=== PATIENT | female | born 1950 | race African-American/Black ===

== ENCOUNTER 2017-10-23 07:44 | Outpatient (CLI) | payer MEDICARE ==
--- NOTE | 2017-10-23 10:06 | MRI ---
BRAIN MRI WITHOUT CONTRAST: INDICATION: Memory changes, confusion. FINDINGS: There is age-appropriate size of the ventricular system. Minimal chronic microvascular ischemic dise ase is present. There is no evidence of an acute infarction. Skull base flow voids are maintained. There is extensive paranasal sinus opacification. IMPRESSION: 1. No acute intracranial abnormality. 2. Extensive paranasal sinus opacification. Correlate clinically. POS: [facility]
--- NOTE | 2017-10-27 10:46 | EEG ---
Referring Physician: DR. NATHAN MCCANN EEG # [id number] PROCEDURE: Outpatient electroencephalogram NAME OF PATIENT: Miriam Soliz DATE EEG DONE: 10/23/2017. INDICATION: Memory changes, confusion. EEG CLASSIFICATION: Normal awake and drowsy. REPORT: This is a 22-channel digital EEG recording utilizing 10-20 international electrode placement system on a patient who presents with memory changes and confusion. During wakefulness, the background activity consists predominantly of low to moderate amplitude dominant alpha rhythm of 8-9 Hz. It is symmetric and reactive in nature. This activity is penetrated occasionally by low amplitude fast beta activity and with myogenic activity representing frontalis and temporalis muscles bilaterally. DROWSINESS AND SLEEP: Subject able to attain periods of drowsiness with diffuse theta activity. There is no clear sleep recorded during this EEG. There is no consistent asymmetry or paroxysmal activity noted. INDUCTION: HYPERVENTILATION: With fair effort results in no significant change in the background activity. PHOTIC STIMULATION: No photic drive seen. EK per minute. IMPRESSION: This EEG is considered normal awake and drowsy EEG. There is no clear epileptiform activity or focal abnormality noted. Clinical correlation recommended. Painter Airbrush: AUREA Deaf/Hard Of Hearing Specialist: EEG.ROSIE HAWLEY
== END 2017-10-23 07:45 | disposition home or self-care (01) ==
LOC: MRI 07:44
PROVIDERS: ATTEND Student in an Organized Health Care Education/Training Program
DX: R41.3 Other amnesia (principal); R41.0 Disorientation, unspecified
CPT/HCPCS: 70551; 95816

== ENCOUNTER 2018-03-11 10:03 | Inpatient (IN) | payer MEDICARE ==
[2018-03-11] MEDS ORDERED: cefTRIAXone\\ROCEPHIN 2 GM VIAL ONE (10:33)
[2018-03-11 10:45] LABS: #Lymphocytes 0.6 thou/uL (1.20-3.40); #Monocytes 0.7 thou/uL (0.11-0.59); #Neutrophils 9.2 thou/uL (1.40-6.50); %Basophils 0.2 % (0.0-1.0); %Eosinophils 0.2 % (0.0-10.0); %Lymphocytes 5.9 % (21.0-51.0); %Neutrophils 86.8 % (42.0-75.0); Hemoglobin 13.2 g/dL (12.0-16.0); Mean Corpuscular HGB CONC 33.8 g/dL (32.0-36.0); Mean Corpuscular Hemoglobin 29.7 pg (27.0-31.0); Mean Corpuscular Volume 87.7 fl (81.0-99.0); Mean Platelet Volume 8.4 fL (7.4-10.4); Platelet Count 131 thou/uL (130-400); RBC Distribution Width 12.1 % (11.5-14.5); Red Blood Cell (RBC) Count 4.44 mill/uL (4.20-5.40); White Blood Cell (WBC) Count 10.6 thou/uL (4.8-10.8)
--- NOTE | 2018-03-11 10:58 | RAD ---
RIGHT FOOT THREE VIEWS: History: 68-year-old female with history of right foot wound as well as swelling of right foot without fever. FINDINGS: There is soft tissue swelling of the right fourth toe, particularly laterally, resulting in some sepa ration between the proximal phalanges of the fourth and fifth toes. Mild degenerative changes of the foot. No evidence for acute fracture. Evidence for a type II secondary navicular ossification center. IMPRESSION: Soft tissue swelling of the fourth toe, particularly laterally. No fracture, dislocation, or other si gnificant acute osseous abnormality. POS: [facility]
[2018-03-11 11:06] LABS: ALT (SGPT) 9 U/L (8-55); AST (SGOT) 11 U/L (5-34); Albumin 4.3 g/dL (3.4-4.8); Alkaline Phosphatase 92 U/L (40-150); Anion Gap 12 mmol/L (10-20); BUN (Urea Nitrogen) 11 mg/dL (9.8-20.1); Bilirubin, Total 2.4 mg/dL (0.2-1.2); Calc. Creatinine Clearance 0 mL/min (70-130); Calcium 11.1 mg/dL (7.8-10.44); Carbon Dioxide 25 mmol/L (23-31); Chloride 97 mmol/L (98-107); Estimated GFR-MDRD 90; Globulin 3.5 g/dL (2.4-3.5); Glucose 320 mg/dL (80-115); Potassium 4.4 mmol/L (3.5-5.1); Protein, Total 7.8 g/dL (6.0-8.3); Sodium 130 mmol/L (136-145)
[2018-03-11] MEDS ORDERED: Cefepime 2 GM VIAL ONE (11:16)
--- NOTE | 2018-03-11 13:27 | HP ---
PRIMARY CARE PHYSICIAN: Dr. Acosta Heart. REASON FOR ADMISSION: Right foot cellulitis, failed outpatient therapy, immunocompromised patient. HISTORY OF PRESENT ILLNESS: A 68-year-old -[place] female who has history of diabetes type 2 as well as history of diabetic nephropathy required renal transplant, on immunosuppressive therapy, who was having right foot pain for about 3-4 days. Initially, patient was hurting in her fourth toe on the right side. It was becoming more erythematous and tender, which was bothered during walking. Yesterday they decided to go to see Dr. Heart's office and Dr. Gonzalez gave her Rocephin shot and ad vised to come for evaluation today. Yesterday, patient was having a lot of swelling, erythema and wa rmth over right foot and patient was advised to keep right foot elevated. This morning, swelling sli ghtly reduced but patient's family member noticed yellowish discoloration on top of dorsum of the fou rth toe on the right side. When Dr. Gonzalez saw this, at that time, patient was advised to go to the emergency room for evaluation. The patient was not having any fever. She did not have any UTI sympt oms. She denies any nausea, vomiting, diarrhea. She denies any trauma. The patient is on immunosup pressive therapy for renal transplant. Normally, patient is followed by Dr. Heart, but yesterday sh e saw Dr. Gonzalez because Dr. Heart was off. Currently, patient does have throbbing pain in her right foot, especially fourth toe and her entire r ight foot is swollen, erythematous. She is not feeling any better and that is why we are admitting t his patient in hospital, particularly she is immunocompromised patient. REVIEW OF SYSTEMS: The following complete review of systems was negative, unless otherwise mentioned in the HPI or below: Constitutional: Weight loss or gain, ability to conduct usual activities. Skin: Rash, itching. Eyes: Double vision, pain. ENT/Mouth: Nose bleeding, neck stiffness, pain, tenderness. Cardiovascular: Palpitations, dyspnea on exertion, orthopnea. Respiratory: Shortness of breath, wheezing, cough, hemoptysis, fever or night sweats. Gastrointestinal: Poor appetite, abdominal pain, heartburn, nausea, vomiting, constipation, or diarr hea. Genitourinary: Urgency, frequency, dysuria, nocturia. Musculoskeletal: Pain, swelling. Neurologic/Psychiatric: Anxiety, depression. Allergy/Immunologic: Skin rash, bleeding tendency. Please see my HPI for pertinent positive and negative. All other review of system reviewed and negat enrique except as mentioned in the HPI. PAST MEDICAL HISTORY: Diabetes type 2, hypertension, hypothyroidism, history of renal transplant, po lycystic kidney disease, secondary hyperparathyroidism and gastroesophageal reflux disease. PAST SURGICAL HISTORY: Right renal transplant in 2012 at [facility] in [place], histo ry of dialysis shunt to left upper extremity in 2011, hysterectomy in 1999. PAST PSYCHIATRIC HISTORY: Reviewed and negative. SOCIAL HISTORY: Patient lives at home by herself. No history of tobacco, alcohol or illicit drug ab use. FAMILY HISTORY: No strong family history of premature coronary artery disease, stroke or cancer. ALLERGIES: No known drug allergy. CURRENT HOME MEDICATIONS: Prograf 5 capsule twice daily, CellCept 500 mg twice daily, prednisone 5 m g daily, Pepcid 20 mg daily, Toprol 25 mg twice daily, Sensipar 90 mg p.o. daily, aspirin 81 mg p.o. daily, Glucotrol-XL 10 mg daily, magnesium oxide 400 mg twice daily, levothyroxine 125 mcg p.o. daily . EMERGENCY ROOM COURSE: Patient has received cefepime 2 gram and vancomycin 1 gram. PHYSICAL EXAMINATION: VITAL SIGNS: On arrival, blood pressure 131/77, pulse 92, respiratory rate 18, temperature 98.8, sat uration 96% on room air, weight 57.6 kilograms. GENERAL: Patient is currently alert, awake, no obvious acute distress. HEAD: Normocephalic, atraumatic. EYES: Pupils round, reactive to light. Extraocular muscle intact. ENT: Oropharynx within normal limits. Moist mucous membranes. No oral lesion, no pharyngeal erythe ma, no exudate. NECK: Supple, no JVD, no thyromegaly, no carotid bruit, no jugular venous distention. LUNGS: Clear to auscultation without any rhonchi or rales. CARDIAC: S1 and S2 regular. No murmur elicited, no gallop, no rub. ABDOMEN: Soft, bowel sounds present, nontender, nondistended. No organomegaly, no mass, no suprapub ic tenderness. BACK: Examination unremarkable, no CVA tenderness. EXTREMITIES: Upper extremity within normal limits. Lower extremities; right foot is erythematous, s wollen. The patient does have yellowish discoloration on the base of the fourth toe as well as on do rsal aspect of the fourth toe. Entire foot is tender and swollen on the right side. NEUROLOGIC: Nonfocal examination. Motor 5/5. Sensation intact bilaterally. Reflexes symmetrical. Plantar bilateral flexor. No cerebellar sign. SKIN: No skin rash. HEMATOLOGICAL SYSTEM: No lymphadenopathy. PSYCHIATRIC: Normal affect. IMAGING DATA AND SIGNIFICANT LABORATORY DATA: Foot x-ray done in the emergency room showing soft tis anthony swelling of the fourth toe. No fracture or bony involvement. CBC: WBC 10.6, hemoglobin 13.2, a nd platelet 131. BMP: Sodium 130, potassium 4.4, chloride 97, carbon dioxide 25, anion gap 12, BUN 11, creatinine 0.77. Glucose 320, calcium 11.1. LFT: Bilirubin 2.4, AST 11, ALT 9, alkaline phosph atase 92, albumin 4.3, and lactic acid 1.3. ASSESSMENT AND PLAN/IMPRESSION: 1. Right foot cellulitis, especially right fourth toe cellulitis with abscess, failure of outpatient therapy. Patient is immunocompromised and she has rapidly worsening of erythema, swelling, and tend erness over right foot. This patient may need surgical procedure with minor I&D over right fourth to e to remove pus which is obvious clinically on inspection. Patient will be treated with Rocephin 2 g kesha IV daily, vancomycin pharmacy adjusted dose, Florastor 250 mg p.o. daily. We will control her pa in with morphine 2 mg every 4 hourly p.r.n. basis. We will consult director of reservations General Surgery for evalu ation. The patient is advised to keep right foot elevated. 2. History of polycystic kidney disease and right renal transplantation on immunosuppressive therapy . We will continue Prograf 5 mg twice daily, CellCept 500 mg twice daily, prednisone 5 mg p.o. daily . 3. Diabetes type 2, not well controlled. We will continue Glucotrol-XL 10 mg daily, insulin as per sliding scale per protocol. Diabetic diet will be given. 4. Hypothyroidism. We will continue Synthroid 125 mcg p.o. daily. 5. Hypertension. We will continue metoprolol tartrate 25 mg p.o. twice daily. 6. Secondary hyperparathyroidism of renal origin. We will continue Sensipar 90 mg p.o. daily. 7. Hyponatremia likely due to pseudohyponatremia from hyperglycemia. We will repeat BMP tomorrow. 8. Mild hypercalcemia, likely due to possible underlying dehydration. We will give her gentle IV fl uid and we will repeat BMP tomorrow. 9. Deep venous thrombosis prophylaxis, heparin 5000 units subcu twice daily. 10. GI prophylaxis, Pepcid 20 mg p.o. daily. CODE STATUS: Patient is FULL CODE. Patient's daughter is surrogate decision maker. Disposition plan based on clinical course. We are expecting patient's stay in hospital more than 2 m idnights. Plan of care discussed with the patient's daughter and patient's bedside in the emergency room in detail.
[2018-03-11 14:18] VITALS: BMI 32.9
[2018-03-11] MEDS ORDERED: Ondansetron HCl/PF 4 MG/2 ML Vial IVP PRN ×2 (14:25→14:26)
[2018-03-11] MEDS ORDERED: Chloraseptic Spray 180 ml Bottle PO PRN (14:26)
[2018-03-11] MEDS ORDERED: Senokot 8.6 MG TAB PO PRN (14:26)
[2018-03-11] MEDS ORDERED: Acetaminophen 325 MG TAB PO PRN ×2 (14:26)
[2018-03-11] MEDS ORDERED: Artificial Tears 18 DROP/0.9 ML EA EYE PRN (14:26)
[2018-03-11] MEDS ORDERED: HumaLOG 300 UNITS/3 ML VIAL SC PRN (14:26)
[2018-03-11] MEDS ORDERED: Milk Of Magnesia 30 ML UDCUP PO PRN (14:26)
[2018-03-11] MEDS ORDERED: Diabetic Tussin 200 MG/10 ML UDCUP PO PRN (14:26)
[2018-03-11] MEDS ORDERED: Dextrose 5% in Water 1,000 ML IV PRN (14:26)
[2018-03-11] MEDS ORDERED: Ondansetron ODT 4 MG TAB PO PRN ×2 (14:26)
[2018-03-11] MEDS ORDERED: Dextrose 50% Abboject 50 ML SYRINGE SLOW IVP PRN (14:26)
[2018-03-11] MEDS ORDERED: Loperamide HCl 2 MG CAP PO PRN (14:26)
[2018-03-11] MEDS ORDERED: Mag-Al 1200 mg/1200 mg/30 ML UDCUP PO PRN (14:26)
[2018-03-11] MEDS ORDERED: hydrALAZINE 20 MG/ML VIAL SLOW IVP PRN (14:26)
[2018-03-11] MEDS ORDERED: Zolpidem Tartrate 5 MG TAB PO PRN (14:26)
[2018-03-11] MEDS ORDERED: Loratadine 10 MG TAB PO PRN (14:26)
[2018-03-11] MEDS ORDERED: Sodium Chloride 0.65% Nasal 44 ML BOT EA NARE PRN (14:26)
[2018-03-11] MEDS ORDERED: Eucerin (Mineral Oil/Petrolatum,White) 30 gm Jar TOP PRN (14:26)
[2018-03-11] MEDS ORDERED: Morphine 4 MG/ML VIAL IV PRN (14:44)
[2018-03-11] MEDS: cefTRIAXone\\ROCEPHIN 2 GM in Sodium Chloride 0.9% 100 ML IVPB SCH (15:46)
[2018-03-11] MEDS: Sodium Chloride 0.9% 1,000 ML IV SCH (15:47)
[2018-03-11] MEDS: Vancomycin HCl 1.75 GM in Sodium Chloride 0.9% 500 ML IVPB SCH (16:41)
[2018-03-11 18:53] LABS: Bilirubin Negative (Negative); Blood, Urine Moderate (Negative); Clarity CLEAR (Clear); Glucose, Urine (Dipstick) >=1000 mg/dL (Negative); Leukocyte Negative (Negative); Nitrite Negative (Negative); Protein, Urine (Dipstick) 30 mg/dL (Neg-Trace); Specific Gravity, Urine 1.041 (1.002-1.036); Urobilinogen 0.2 mg/dL (0.2-1.0)
[2018-03-11 18:56] LABS: Bacteria/HPF None Seen HPF (None Seen); Hyaline Casts/LPF 0-3 HYALINE CAST LPF (0-3 Hyaline); Pathc Cast-AUWi Flag 0.43 (0-2.49); Squamous Epithelial 0-3 HPF (0-3)
[2018-03-11] MEDS: Metoprolol Tartrate 25 MG TAB PO SCH (20:20)
[2018-03-11] MEDS: Magnesium Oxide 400 MG TAB PO SCH (20:20)
[2018-03-11] MEDS: Mycophenolate 250 MG CAP PO SCH (20:20)
[2018-03-11] MEDS: Heparin 5,000 UNITS/ML VIAL SC SCH (20:20)
[2018-03-11] MEDS: Tacrolimus 1 MG CAP PO SCH (20:21)
--- NOTE | 2018-03-11 20:32 | HP ---
HISTORY OF PRESENT ILLNESS: Miriam Soliz is a 68-year-old black female with diabetic foot infection , right fourth toe. She denies knowledge of any injury. She has a renal transplant, kidney failure secondary to polycystic kidney disease. She is followed by Dr. Becerra, has an appointment to see him n ext month. She has a left upper arm dialysis fistula placed in [place]. Dr. Heart is her primary [facility] physician. The patient was seen in the hospital, admitted on 03/11/2018, and antibiotics initiat ed. She had an x-ray noting absence of any obvious bony involvement. She has been started on intrav enous antibiotics, ceftriaxone and vancomycin. She is insulin-dependent diabetic. She has a cousin that had an excellent match for renal transplant performed in 2012 after bilateral nephrectomies for polycystic kidney disease through a midline incision. Evaluation reveals that she has some blistering around the skin of the right fourth toe; and in the w eb space between the fourth and fifth toes, there are some excoriations, superficial skin denervation , but no obvious abscess, sinus, or wounds. She has palpable pedal pulses. Plan at this time would be to treat this with intravenous antibiotics, transition to oral antibiotics . I think local antibiotic treatment should suffice and hopefully, surgical intervention will not be necessary. She does not have any evidence of peripheral vascular disease. ALLERGIES: None. TOBACCO: None. ALCOHOL: Rare beer. MEDICATIONS: Tylenol, magnesium oxide, glipizide, Crestor, metoprolol, simvastatin, aspirin, levothy roxine, famotidine, prednisone, Prograf 5 mg b.i.d., CellCept 500 b.i.d. In the hospital, she is on ceftriaxone and vancomycin. PAST SURGICAL HISTORY: Midline incision for bilateral nephrectomies; previous hysterectomy; left arm AV fistula; upper arm cephalic vein fistula; renal transplant, cousin donated with an excellent [facility], 2012, fitter hand Dr. Becerra. PAST MEDICAL HISTORY: Diabetes mellitus; hypertension; polycystic kidney disease, status post bilate ral nephrectomies; renal transplant recipient. PHYSICAL EXAMINATION: VITAL SIGNS: 5 feet 4 inches, 191 pounds, 98.5, 93, 110/67. HEAD, EARS, EYES, NOSE, AND THROAT: Unremarkable. LUNGS: Clear to auscultation. CARDIAC: Regular rate and rhythm without murmur or gallop. ABDOMEN: Soft. Midline incision xiphoid to pubis. Well-healed incision. No obvious scar. No obvi ous hernia. EXTREMITIES: Palpable femoral, popliteal, dorsalis pedis pulses. Edema of the right fourth toe and overlying skin and distal foot. There is denudation of skin blistering on the dorsal aspect, but no sinus tracts. In the web space between the fourth and fifth toes, there is some excoriation of skin, but no violation of skin and no sinus tract. ASSESSMENT AND PLAN: Diabetic foot infection, right. Continue intravenous antibiotics. Plain x-ray s are negative. No evidence of peripheral arterial disease. No indication for surgical intervention at this time. I do not think MRI is necessary. We will continue intravenous antibiotics, transitio n to oral, and call me if I can be of further assistance. I can follow up her in my office if necess deb when she is discharged.
[2018-03-11] MEDS ORDERED: Prevnar 13-Val Conj/PF 0.5 ML SYRINGE IM ONE (21:00)
[2018-03-12] MEDS: Sodium Chloride 0.9% 1,000 ML IV SCH ×2 (02:41→05:05)
[2018-03-12] MEDS: HYDROcodone/Acetaminophen 5/325 mg Tablet PO PRN ×2 (05:06→14:23)
[2018-03-12] MEDS: Levothyroxine Sodium 125 MCG TAB PO SCH (05:07)
[2018-03-12] MEDS: HumaLOG 300 UNITS/3 ML VIAL SC PRN ×3 (05:11→17:26)
[2018-03-12] MEDS ORDERED: Levothyroxine 150 MCG TAB PO SCH (06:00)
[2018-03-12 06:14] LABS: ALT (SGPT) 8 U/L (8-55); AST (SGOT) 11 U/L (5-34); Albumin 3.5 g/dL (3.4-4.8); Alkaline Phosphatase 83 U/L (40-150); Anion Gap 9 mmol/L (10-20); BUN (Urea Nitrogen) 13 mg/dL (9.8-20.1); Bilirubin, Total 0.9 mg/dL (0.2-1.2); CRP (Inflammatory) 13.59 mg/dL (= or < 0.5); Calc. Creatinine Clearance 99 mL/min (70-130); Calcium 10.9 mg/dL (7.8-10.44); Carbon Dioxide 26 mmol/L (23-31); Chloride 103 mmol/L (98-107); Estimated GFR-MDRD Greater than 90; Globulin 2.9 g/dL (2.4-3.5); Glucose 285 mg/dL (80-115); Magnesium 1.5 mg/dL (1.6-2.6); Potassium 4.2 mmol/L (3.5-5.1); Protein, Total 6.4 g/dL (6.0-8.3); Sodium 134 mmol/L (136-145)
[2018-03-12 06:56] LABS: #Lymphocytes 0.7 thou/uL (1.20-3.40); #Monocytes 0.6 thou/uL (0.11-0.59); #Neutrophils 4.1 thou/uL (1.40-6.50); %Basophils 0.1 % (0.0-1.0); %Eosinophils 0.5 % (0.0-10.0); %Lymphocytes 13.5 % (21.0-51.0); %Monocytes 10.2 % (0.0-10.0); %Neutrophils 75.7 % (42.0-75.0); Mean Corpuscular HGB CONC 32.9 g/dL (32.0-36.0); Mean Corpuscular Hemoglobin 29.2 pg (27.0-31.0); Mean Corpuscular Volume 88.6 fl (81.0-99.0); Mean Platelet Volume 8.9 fL (7.4-10.4); PLT Morphology Comment Appears Decreased; Platelet Count 113 thou/uL (130-400); RBC Distribution Width 11.9 % (11.5-14.5); RBC Morphology Normal; White Blood Cell (WBC) Count 5.4 thou/uL (4.8-10.8)
[2018-03-12] MEDS: Mycophenolate 250 MG CAP PO SCH ×2 (08:33→20:14)
[2018-03-12] MEDS: Cinacalcet HCl 30 MG TAB PO SCH (08:33)
[2018-03-12] MEDS: Famotidine 20 MG TAB PO SCH (08:33)
[2018-03-12] MEDS: Metoprolol Tartrate 25 MG TAB PO SCH ×2 (08:34→20:14)
[2018-03-12] MEDS: predniSONE 5 MG TAB PO SCH (08:34)
[2018-03-12] MEDS: Magnesium Oxide 400 MG TAB PO SCH ×2 (08:34→20:14)
[2018-03-12] MEDS: Heparin 5,000 UNITS/ML VIAL SC SCH ×2 (08:34→20:14)
[2018-03-12] MEDS: Saccharomyces boulardii 250 MG CAP PO SCH (08:34)
[2018-03-12] MEDS: Tacrolimus 1 MG CAP PO SCH ×2 (08:34→20:15)
--- NOTE | 2018-03-12 10:27 | PDOC.PN ---
- Subjective Encounter Start Date: 03/12/18 Encounter Start Time: 09:10 -: old records requested/rev Patient seen and examined for diabetic foot infection. No new complaints. No overnight events pt feels better, less swelling on right foot, she had minor scraping and pus drained bedside by dr garrido - Objective Resuscitation Status: Resuscitation Status FULL:Full Resuscitation MAR Reviewed: Yes Vital Signs & Weight: Vital Signs (12 hours) Temp Pulse Resp BP Pulse Ox 03/12/18 08:19 97.6 F 72 16 116/70 99 03/12/18 08:00 97.6 F 72 16 99 03/12/18 04:00 98.7 F 92 16 152/84 H 97 03/12/18 00:00 98.2 F 88 18 132/62 98 I&O: 03/11/18 03/12/18 03/13/18 06:59 06:59 06:59 Intake Total 240 Balance 240 Result Diagrams: 03/12/18 04:32 03/12/18 04:32 Additional Labs: Accuchecks 03/12/18 03/11/18 04:47 20:39 POC Glucose 261 H 238 H Phys Exam - Physical Examination Constitutional: NAD HEENT: PERRLA, moist MMs, sclera anicteric Neck: no JVD, supple Respiratory: no wheezing, no rales, no rhonchi Cardiovascular: RRR, no significant murmur, no rub Gastrointestinal: soft, non-tender, no distention, positive bowel sounds Musculoskeletal: no edema, pulses present right foot swelling erythema reducing Neurological: non-focal, normal sensation, moves all 4 limbs Lymphatic: no nodes Psychiatric: normal affect, A&O x 3 Skin: no rash, normal turgor, cap refill <2 seconds Dx/Plan (1) Cellulitis of right foot Code(s): L03.115 - CELLULITIS OF RIGHT LOWER LIMB Status: Acute Comment: on vancomycin and rocephin (2) Dehydration Code(s): E86.0 - DEHYDRATION Status: Resolved (3) Diabetic infection of right foot Code(s): E11.628 - TYPE 2 DIABETES MELLITUS WITH OTHER SKIN COMPLICATIONS; L08.9 - LOCAL INFECTION OF THE SKIN AND SUBCUTANEOUS TISSUE, UNSP Status: Acute (4) Hypercalcemia Code(s): E83.52 - HYPERCALCEMIA Status: Acute (5) Hypomagnesemia Code(s): E83.42 - HYPOMAGNESEMIA Status: Acute (6) Hyponatremia Code(s): E87.1 - HYPO-OSMOLALITY AND HYPONATREMIA Status: Resolved (7) Thrombocytopenia Code(s): D69.6 - THROMBOCYTOPENIA, UNSPECIFIED Status: Acute (8) Diabetes type 2, controlled Code(s): E11.9 - TYPE 2 DIABETES MELLITUS WITHOUT COMPLICATIONS Status: Chronic (9) Dyslipidemia Code(s): E78.5 - HYPERLIPIDEMIA, UNSPECIFIED Status: Chronic (10) Hypertension Code(s): I10 - ESSENTIAL (PRIMARY) HYPERTENSION Status: Chronic (11) Hypothyroidism Code(s): E03.9 - HYPOTHYROIDISM, UNSPECIFIED Status: Chronic (12) Immunosuppressed status Code(s): D89.9 - DISORDER INVOLVING THE IMMUNE MECHANISM, UNSPECIFIED Status: Chronic - Plan cont current plan of care, plan discussed w/ family, continue antibiotics * DC IVF after current bag * continue vancomycin and zosyn * as per surgeon no need of surgery * follow culture * continue her home medication * pain controlled * discussed with family bedside * medication reviewed as below * symptomatic treatment. * replace magnesium IV * repeat labs tomorrow * monitor platelet, calcium, mag Review of Systems - Review of Systems Constitutional: negative: fever, chills, sweats, weakness, malaise, other Eyes: negative: Pain, Vision Change, Conjunctivae Inflammation, Eyelid Inflammation, Redness, Other ENT: negative: Ear Pain, Ear Discharge, Nose Pain, Nose Discharge, Nose Congestion, Mouth Pain, Mouth Swelling, Throat Pain, Throat Swelling, Other Respiratory: negative: Cough, Dry, Shortness of Breath, Hemoptysis, SOB with Excertion, Pleuritic Pain, Sputum, Wheezing Cardiovascular: negative: chest pain, palpitations, orthopnea, paroxysmal nocturnal dyspnea, edema, light headedness, other Gastrointestinal: negative: Nausea, Vomiting, Abdominal Pain, Diarrhea, Constipation, Melena, Hematochezia, Other Genitourinary: negative: Dysuria, Frequency, Incontinence, Hematuria, Retention , Other Musculoskeletal: Foot Pain. negative: Neck Pain, Shoulder Pain, Arm Pain, Back Pain, Hand Pain, Leg Pain, Other - Medications/Allergies Allergies/Adverse Reactions: Allergies Allergy/AdvReac Type Severity Reaction Status Date / Time No Known Drug Allergies Allergy Verified 05/23/18 20:32 Medications: Current Medications Acetaminophen (Tylenol) 650 mg PO Q4H PRN PRN Reason: Headache/Fever or Pain Last Admin: 03/11/18 21:12 Dose: 650 mg Hydrocodone Bitart/Acetaminophen (Equality 5/325) 1 tab PO Q4H PRN PRN Reason: Moderate Pain (4-6) Last Admin: 03/12/18 05:06 Dose: 1 tab Al Hydroxide/Mg Hydroxide (Maalox) 30 ml PO Q6H PRN PRN Reason: Heartburn or Indigestion Artificial Tears (Tears Naturale) 0 drop EA EYE PRN PRN PRN Reason: Dry Eyes Aspirin (Aspirin Chewable) 81 mg PO DAILY [facility] Last Admin: 03/12/18 08:34 Dose: 81 mg Cinacalcet (Sensipar) 90 mg PO [facility] Last Admin: 03/12/18 08:33 Dose: 90 mg Dextrose/Water (Dextrose 50%) 25 gm SLOW IVP PRN PRN PRN Reason: Hypoglycemia Famotidine (Pepcid) 20 mg PO DAILY [facility] Last Admin: 03/12/18 08:33 Dose: 20 mg Glipizide (Glucotrol Xl) 10 mg PO [facility] Last Admin: 03/12/18 08:33 Dose: 10 mg Glucagon (Glucagon) 1 mg IM PRN PRN PRN Reason: Hypoglycemia Guaifenesin (Robitussin Sf) 200 mg PO Q4H PRN PRN Reason: Cough Heparin Sodium (Porcine) (Heparin) 5,000 units SC BID [facility] Last Admin: 03/12/18 08:34 Dose: 5,000 units Hydralazine HCl (Apresoline) 10 mg SLOW IVP Q4H PRN PRN Reason: Systolic BP > 180 Ceftriaxone Sodium 2 gm/ (Sodium Chloride) 100 mls @ 200 mls/hr IVPB Q24HR [facility] Last Admin: 03/11/18 15:46 Dose: 100 mls Dextrose/Water (D5w) 1,000 mls @ 0 mls/hr IV .Q0M PRN; As Directed PRN Reason: Hypoglycemia Vancomycin HCl 1.75 gm/ Sodium (Chloride) 500 mls @ 250 mls/hr IVPB 1600 [facility] Last Admin: 03/11/18 16:41 Dose: 500 mls Insulin Human Lispro (Humalog) 0 units SC .AGGRESSIVE SLIDING PRN PRN Reason: Aggressive Correctional Scale Last Admin: 03/12/18 05:11 Dose: 9 unit Insulin Human Lispro (Humalog) 0 units SC .BEDTIME SLIDING SC PRN PRN Reason: Bedtime Correctional Scale Last Admin: 03/11/18 21:07 Dose: 2 unit Levothyroxine Sodium (Synthroid) 125 mcg PO 0600 [facility] Last Admin: 03/12/18 05:07 Dose: 125 mcg Loperamide HCl (Imodium) 2 mg PO PRN PRN PRN Reason: Diarrhea/Loose Stools Loratadine (Claritin) 10 mg PO DAILYPRN PRN PRN Reason: Sinus Symptoms Magnesium Hydroxide (Milk Of Magnesium) 30 ml PO DAILYPRN PRN PRN Reason: Constipation Magnesium Oxide (Magnesium Oxide) 400 mg PO BID [facility] Last Admin: 03/12/18 08:34 Dose: 400 mg Metoprolol Tartrate (Lopressor) 25 mg PO BID [facility] Last Admin: 03/12/18 08:34 Dose: 25 mg Mineral Oil/White Petrolatum (Eucerin Cream) 0 gm TOP BIDPRN PRN PRN Reason: Dry Skin Miscellaneous Medication (Pharmacy To Dose) 1 each IVPB ASDIR [facility] Morphine Sulfate (Morphine) 2 mg IV Q4H PRN PRN Reason: Pain Mycophenolate Mofetil (Cellcept) 500 mg PO BID [facility] Last Admin: 03/12/18 08:33 Dose: 500 mg Ondansetron HCl (Zofran Odt) 4 mg PO Q6H PRN PRN Reason: Nausea/Vomiting Ondansetron HCl (Zofran) 4 mg IVP Q6H PRN PRN Reason: Nausea/Vomiting Phenol (Chloraseptic [place] 180 Ml Bot) 0 ml PO PRN PRN PRN Reason: Sore Throat Prednisone (Prednisone) 5 mg PO QAM-WM [facility] Last Admin: 03/12/18 08:34 Dose: 5 mg Saccharomyces Boulardii (Florastor) 250 mg PO DAILY [facility] Last Admin: 03/12/18 08:34 Dose: 250 mg Senna (Senokot) 2 tab PO HSPRN PRN PRN Reason: Constipation Sodium Chloride (Flush - Normal Saline) 10 ml IVF Q12HR [facility] Last Admin: 03/12/18 08:34 Dose: 10 ml Sodium Chloride (Flush - Normal Saline) 10 ml IVF PRN PRN PRN Reason: Saline Flush Sodium Chloride ([place] Nasal [place] 0.65%) 0 ml EA NARE QIDPRN PRN PRN Reason: Nasal Congestion Tacrolimus (Prograf) 5 mg PO BID [facility] Last Admin: 03/12/18 08:34 Dose: 5 mg Zolpidem Tartrate (Ambien) 5 mg PO HSPRN PRN PRN Reason: Insomnia
[2018-03-12] MEDS: cefTRIAXone\\ROCEPHIN 2 GM in Sodium Chloride 0.9% 100 ML IVPB SCH (14:19)
[2018-03-12] MEDS: Vancomycin HCl 1.75 GM in Sodium Chloride 0.9% 500 ML IVPB SCH (16:20)
[2018-03-13] MEDS: Levothyroxine Sodium 125 MCG TAB PO SCH (05:21)
[2018-03-13] MEDS: HumaLOG 300 UNITS/3 ML VIAL SC PRN ×3 (05:23→17:20)
[2018-03-13 05:37] LABS: Anion Gap 10 mmol/L (10-20); BUN (Urea Nitrogen) 9 mg/dL (9.8-20.1); Calc. Creatinine Clearance 101 mL/min (70-130); Calcium 10.1 mg/dL (7.8-10.44); Carbon Dioxide 28 mmol/L (23-31); Chloride 100 mmol/L (98-107); Estimated GFR-MDRD Greater than 90; Glucose 194 mg/dL (80-115); Magnesium 1.2 mg/dL (1.6-2.6); Potassium 3.6 mmol/L (3.5-5.1); Sodium 134 mmol/L (136-145)
[2018-03-13 06:23] LABS: #Lymphocytes 0.8 thou/uL (1.20-3.40); #Monocytes 0.5 thou/uL (0.11-0.59); #Neutrophils 3.3 thou/uL (1.40-6.50); %Eosinophils 0.8 % (0.0-10.0); %Lymphocytes 18.1 % (21.0-51.0); %Neutrophils 71.2 % (42.0-75.0); Hemoglobin 11.5 g/dL (12.0-16.0); Mean Corpuscular HGB CONC 33.7 g/dL (32.0-36.0); Mean Corpuscular Hemoglobin 29.6 pg (27.0-31.0); Mean Corpuscular Volume 87.8 fl (81.0-99.0); Mean Platelet Volume 8.5 fL (7.4-10.4); Platelet Count 119 thou/uL (130-400); RBC Distribution Width 11.8 % (11.5-14.5); Red Blood Cell (RBC) Count 3.89 mill/uL (4.20-5.40); White Blood Cell (WBC) Count 4.6 thou/uL (4.8-10.8)
[2018-03-13] MEDS: predniSONE 5 MG TAB PO SCH (08:13)
[2018-03-13] MEDS: Cinacalcet HCl 30 MG TAB PO SCH (08:13)
[2018-03-13] MEDS: Metoprolol Tartrate 25 MG TAB PO SCH ×2 (08:13→21:01)
[2018-03-13] MEDS: Mycophenolate 250 MG CAP PO SCH ×2 (08:13→21:00)
[2018-03-13] MEDS: Magnesium Oxide 400 MG TAB PO SCH ×2 (08:14→21:01)
[2018-03-13] MEDS: Famotidine 20 MG TAB PO SCH (08:14)
[2018-03-13] MEDS: Saccharomyces boulardii 250 MG CAP PO SCH (08:14)
[2018-03-13] MEDS: Heparin 5,000 UNITS/ML VIAL SC SCH ×2 (08:14→21:02)
[2018-03-13] MEDS: Tacrolimus 1 MG CAP PO SCH ×2 (08:14→20:58)
--- NOTE | 2018-03-13 08:31 | PDOC.PN ---
- Subjective Encounter Start Date: 03/13/18 Encounter Start Time: 11:15 Subjective: Patient reports decreased pain in right foot, tender to palpation with -: some pus expressed this AM for wound culture. No fever. Ambulating. - Objective Resuscitation Status: Resuscitation Status FULL:Full Resuscitation MAR Reviewed: Yes Vital Signs & Weight: Vital Signs (12 hours) Temp Pulse Resp BP Pulse Ox 03/13/18 07:23 98.7 F 83 16 135/72 95 03/13/18 04:00 98.4 F 83 16 145/73 H 96 I&O: 03/12/18 03/13/18 03/14/18 06:59 06:59 06:59 Intake Total 240 270 Balance 240 270 Result Diagrams: 03/13/18 04:57 03/13/18 04:57 Additional Labs: Accuchecks 03/13/18 03/12/18 03/12/18 04:45 20:21 17:12 POC Glucose 160 H 166 H 240 H 03/12/18 11:19 POC Glucose 211 H Phys Exam - Physical Examination Constitutional: NAD HEENT: moist MMs Respiratory: no wheezing, no rales, no rhonchi Cardiovascular: RRR, no significant murmur Gastrointestinal: soft, non-tender, positive bowel sounds Musculoskeletal: no edema, pulses present Neurological: non-focal, moves all 4 limbs Psychiatric: normal affect, A&O x 3 Dx/Plan (1) Diabetic infection of right foot Code(s): E11.628 - TYPE 2 DIABETES MELLITUS WITH OTHER SKIN COMPLICATIONS; L08.9 - LOCAL INFECTION OF THE SKIN AND SUBCUTANEOUS TISSUE, UNSP Status: Acute Comment: s/p I&D by Dr. Weaver at bedside, uncertain if wound culture was collected so order written for one this AM and collected by nursing, blood cultures pending (2) Cellulitis of right foot Code(s): L03.115 - CELLULITIS OF RIGHT LOWER LIMB Status: Acute Comment: on vancomycin and rocephin, will continue one more day and if doing well can change to oral antibiotics tomorrow (3) Hypercalcemia Code(s): E83.52 - HYPERCALCEMIA Status: Acute (4) Hypomagnesemia Code(s): E83.42 - HYPOMAGNESEMIA Status: Acute Comment: replacing (5) Thrombocytopenia Code(s): D69.6 - THROMBOCYTOPENIA, UNSPECIFIED Status: Acute (6) Diabetes type 2, controlled Code(s): E11.9 - TYPE 2 DIABETES MELLITUS WITHOUT COMPLICATIONS Status: Chronic (7) Dyslipidemia Code(s): E78.5 - HYPERLIPIDEMIA, UNSPECIFIED Status: Chronic (8) Hypertension Code(s): I10 - ESSENTIAL (PRIMARY) HYPERTENSION Status: Chronic (9) Hypothyroidism Code(s): E03.9 - HYPOTHYROIDISM, UNSPECIFIED Status: Chronic (10) Immunosuppressed status Code(s): D89.9 - DISORDER INVOLVING THE IMMUNE MECHANISM, UNSPECIFIED Status: Chronic - Plan cont current plan of care, continue antibiotics, PT/OT * . - Discharge Day Encounter end time: 11:50
[2018-03-13] MEDS: cefTRIAXone\\ROCEPHIN 2 GM in Sodium Chloride 0.9% 100 ML IVPB SCH (15:24)
[2018-03-13 15:49] LABS: Vancomycin, Trough 9.2 ug/mL
[2018-03-13] MEDS: Vancomycin HCl 1.75 GM in Sodium Chloride 0.9% 500 ML IVPB SCH (16:33)
[2018-03-13] MEDS: Vancomycin HCl 1.25 GM in Sodium Chloride 0.9% 250 ML 250 ML IVPB SCH (16:42)
[2018-03-14] MEDS: Vancomycin HCl 1.25 GM in Sodium Chloride 0.9% 250 ML 250 ML IVPB SCH ×2 (04:27→16:31)
[2018-03-14] MEDS: Levothyroxine Sodium 125 MCG TAB PO SCH (06:33)
[2018-03-14] MEDS: HumaLOG 300 UNITS/3 ML VIAL SC PRN ×2 (06:34→12:40)
--- NOTE | 2018-03-14 07:26 | PDOC.PN ---
- Subjective Encounter Start Date: 03/14/18 Encounter Start Time: 09:30 Subjective: Patient with continued moderate amount of purulent drainage -: from foot wound. Pain improved. No systemic symptoms. - Objective Resuscitation Status: Resuscitation Status FULL:Full Resuscitation MAR Reviewed: Yes Vital Signs & Weight: Vital Signs (12 hours) Temp Pulse Resp BP Pulse Ox 03/14/18 03:18 98.5 F 76 16 165/93 H 03/14/18 00:20 98.4 F 82 16 159/79 H 100 03/13/18 20:00 98.4 F 82 16 03/13/18 19:40 98.6 F 81 15 126/75 Weight Admit Weight 191 lb Weight 191 lb 12.835 oz I&O: 03/13/18 03/14/18 03/15/18 06:59 06:59 06:59 Intake Total 270 Balance 270 Result Diagrams: 03/13/18 04:57 03/13/18 04:57 Additional Labs: Accuchecks 03/14/18 03/13/18 03/13/18 05:21 21:28 16:16 POC Glucose 224 H 138 H 202 H 03/13/18 11:47 POC Glucose 398 H Phys Exam - Physical Examination Constitutional: NAD HEENT: moist MMs Respiratory: no wheezing, no rales, no rhonchi, clear to auscultation bilateral Cardiovascular: RRR, no significant murmur Gastrointestinal: soft, positive bowel sounds Musculoskeletal: no edema, pulses present right foot with draining wound between 4th and 5th toes, scant purulent material, no surrounding erythema, no fluctuance, good pulses Neurological: moves all 4 limbs Psychiatric: normal affect, A&O x 3 Dx/Plan (1) Diabetic infection of right foot Code(s): E11.628 - TYPE 2 DIABETES MELLITUS WITH OTHER SKIN COMPLICATIONS; L08.9 - LOCAL INFECTION OF THE SKIN AND SUBCUTANEOUS TISSUE, UNSP Status: Acute Comment: s/p I&D by Dr. Weaver at bedside, wound culture from 03/13 pending, Staph Aureus growing from wound (2) Cellulitis of right foot Code(s): L03.115 - CELLULITIS OF RIGHT LOWER LIMB Status: Acute Comment: on vancomycin and rocephin, await sensitivities then switch to oral abx (3) Hypercalcemia Code(s): E83.52 - HYPERCALCEMIA Status: Acute (4) Hypomagnesemia Code(s): E83.42 - HYPOMAGNESEMIA Status: Acute Comment: replacing (5) Thrombocytopenia Code(s): D69.6 - THROMBOCYTOPENIA, UNSPECIFIED Status: Acute (6) Diabetes type 2, controlled Code(s): E11.9 - TYPE 2 DIABETES MELLITUS WITHOUT COMPLICATIONS Status: Chronic (7) Dyslipidemia Code(s): E78.5 - HYPERLIPIDEMIA, UNSPECIFIED Status: Chronic (8) Hypertension Code(s): I10 - ESSENTIAL (PRIMARY) HYPERTENSION Status: Chronic (9) Hypothyroidism Code(s): E03.9 - HYPOTHYROIDISM, UNSPECIFIED Status: Chronic (10) Immunosuppressed status Code(s): D89.9 - DISORDER INVOLVING THE IMMUNE MECHANISM, UNSPECIFIED Status: Chronic - Plan cont current plan of care, continue antibiotics, PT/OT Continue IV abx for one more day, if sensitivities back tomorrow can -: change to oral abx, if not back may be able to discharge on oral abx to -: cover MRSA * . - Discharge Day Encounter end time: 09:50
[2018-03-14] MEDS: Famotidine 20 MG TAB PO SCH (08:29)
[2018-03-14] MEDS: Cinacalcet HCl 30 MG TAB PO SCH (08:29)
[2018-03-14] MEDS: predniSONE 5 MG TAB PO SCH (08:29)
[2018-03-14] MEDS: Magnesium Oxide 400 MG TAB PO SCH ×2 (08:29→20:20)
[2018-03-14] MEDS: Metoprolol Tartrate 25 MG TAB PO SCH ×2 (08:30→20:20)
[2018-03-14] MEDS: Saccharomyces boulardii 250 MG CAP PO SCH (08:30)
[2018-03-14] MEDS: Heparin 5,000 UNITS/ML VIAL SC SCH ×2 (08:30→20:22)
[2018-03-14] MEDS: Tacrolimus 1 MG CAP PO SCH ×2 (08:30→20:20)
[2018-03-14] MEDS: Mycophenolate 250 MG CAP PO SCH ×2 (08:30→20:20)
[2018-03-14] MEDS: cefTRIAXone\\ROCEPHIN 2 GM in Sodium Chloride 0.9% 100 ML IVPB SCH (15:21)
[2018-03-15 03:51] LABS: Vancomycin, Trough 20.1 ug/mL
[2018-03-15] MEDS: Vancomycin HCl 1.25 GM in Sodium Chloride 0.9% 250 ML 250 ML IVPB SCH ×2 (04:50→15:55)
[2018-03-15] MEDS: Levothyroxine Sodium 125 MCG TAB PO SCH (04:50)
[2018-03-15] MEDS: Cinacalcet HCl 30 MG TAB PO SCH (07:35)
[2018-03-15] MEDS: Tacrolimus 1 MG CAP PO SCH ×2 (07:35→20:28)
[2018-03-15] MEDS: predniSONE 5 MG TAB PO SCH (07:36)
[2018-03-15] MEDS: Metoprolol Tartrate 25 MG TAB PO SCH ×2 (07:36→20:29)
[2018-03-15] MEDS: Magnesium Oxide 400 MG TAB PO SCH ×2 (07:36→20:29)
[2018-03-15] MEDS: Famotidine 20 MG TAB PO SCH (07:36)
[2018-03-15] MEDS: Saccharomyces boulardii 250 MG CAP PO SCH (07:36)
[2018-03-15] MEDS: Heparin 5,000 UNITS/ML VIAL SC SCH ×2 (07:36→20:31)
[2018-03-15] MEDS: Mycophenolate 250 MG CAP PO SCH ×2 (07:41→20:28)
--- NOTE | 2018-03-15 11:23 | PDOC.PN ---
- Subjective Encounter Start Date: 03/15/18 Encounter Start Time: 08:30 -: old records requested/rev Patient seen and examined for diabetic foot infection. No new complaints. No overnight events - Objective Resuscitation Status: Resuscitation Status FULL:Full Resuscitation MAR Reviewed: Yes Vital Signs & Weight: Vital Signs (12 hours) Temp Pulse Resp BP Pulse Ox 03/15/18 08:00 98.3 F 82 16 98 03/15/18 07:42 98.3 F 82 16 120/76 94 L Weight Admit Weight 191 lb Weight 191 lb 12.835 oz I&O: 03/14/18 03/15/18 03/16/18 06:59 06:59 06:59 Intake Total 623 240 Balance 623 240 Result Diagrams: 03/13/18 04:57 03/13/18 04:57 Additional Labs: Accuchecks 03/15/18 03/14/18 03/14/18 05:01 19:56 16:21 POC Glucose 174 H 187 H 203 H 03/14/18 11:26 POC Glucose 260 H Phys Exam - Physical Examination Constitutional: NAD HEENT: PERRLA, moist MMs, sclera anicteric Neck: no JVD, supple Respiratory: no wheezing, no rales, no rhonchi Cardiovascular: RRR, no significant murmur, no rub Gastrointestinal: soft, non-tender, no distention, positive bowel sounds Musculoskeletal: no edema, pulses present right diabetic foot infection and cellulitis improving Neurological: non-focal, normal sensation, moves all 4 limbs Psychiatric: normal affect, A&O x 3 Skin: no rash, normal turgor Dx/Plan (1) Cellulitis of right foot Code(s): L03.115 - CELLULITIS OF RIGHT LOWER LIMB Status: Acute Comment: on vancomycin and rocephin, await sensitivities then switch to oral abx (2) Dehydration Code(s): E86.0 - DEHYDRATION Status: Resolved (3) Diabetic infection of right foot Code(s): E11.628 - TYPE 2 DIABETES MELLITUS WITH OTHER SKIN COMPLICATIONS; L08.9 - LOCAL INFECTION OF THE SKIN AND SUBCUTANEOUS TISSUE, UNSP Status: Acute Comment: (4) Hypercalcemia Code(s): E83.52 - HYPERCALCEMIA Status: Resolved (5) Hypomagnesemia Code(s): E83.42 - HYPOMAGNESEMIA Status: Acute Comment: (6) Hyponatremia Code(s): E87.1 - HYPO-OSMOLALITY AND HYPONATREMIA Status: Resolved (7) Thrombocytopenia Code(s): D69.6 - THROMBOCYTOPENIA, UNSPECIFIED Status: Acute (8) Diabetes type 2, controlled Code(s): E11.9 - TYPE 2 DIABETES MELLITUS WITHOUT COMPLICATIONS Status: Chronic (9) Dyslipidemia Code(s): E78.5 - HYPERLIPIDEMIA, UNSPECIFIED Status: Chronic (10) Hypertension Code(s): I10 - ESSENTIAL (PRIMARY) HYPERTENSION Status: Chronic (11) Hypothyroidism Code(s): E03.9 - HYPOTHYROIDISM, UNSPECIFIED Status: Chronic (12) Immunosuppressed status Code(s): D89.9 - DISORDER INVOLVING THE IMMUNE MECHANISM, UNSPECIFIED Status: Chronic - Plan cont current plan of care, plan discussed w/ family, continue antibiotics * await sensitivity result of staph to decide oral antibiotics * medication reviewed as below * symptomatic treatment * discussed with daughter * continue vancomycin and rocephin. Review of Systems - Review of Systems Eyes: negative: Pain, Vision Change, Conjunctivae Inflammation, Eyelid Inflammation, Redness, Other ENT: negative: Ear Pain, Ear Discharge, Nose Pain, Nose Discharge, Nose Congestion, Mouth Pain, Mouth Swelling, Throat Pain, Throat Swelling, Other Respiratory: negative: Cough, Dry, Shortness of Breath, Hemoptysis, SOB with Excertion, Pleuritic Pain, Sputum, Wheezing Cardiovascular: negative: chest pain, palpitations, orthopnea, paroxysmal nocturnal dyspnea, edema, light headedness, other Gastrointestinal: negative: Nausea, Vomiting, Abdominal Pain, Diarrhea, Constipation, Melena, Hematochezia, Other Genitourinary: negative: Dysuria, Frequency, Incontinence, Hematuria, Retention , Other Musculoskeletal: negative: Neck Pain, Shoulder Pain, Arm Pain, Back Pain, Hand Pain, Leg Pain, Foot Pain, Other Skin: negative: Rash, Lesions, Porter, Bruising, Other - Medications/Allergies Allergies/Adverse Reactions: Allergies Allergy/AdvReac Type Severity Reaction Status Date / Time No Known Drug Allergies Allergy Verified 03/11/18 20:32 Medications: Current Medications Acetaminophen (Tylenol) 650 mg PO Q4H PRN PRN Reason: Headache/Fever or Pain Last Admin: 03/11/18 21:12 Dose: 650 mg Hydrocodone Bitart/Acetaminophen ([place] 5/325) 1 tab PO Q4H PRN PRN Reason: Moderate Pain (4-6) Last Admin: 03/12/18 14:23 Dose: 1 tab Al Hydroxide/Mg Hydroxide (Maalox) 30 ml PO Q6H PRN PRN Reason: Heartburn or Indigestion Artificial Tears (Tears Naturale) 0 drop EA EYE PRN PRN PRN Reason: Dry Eyes Aspirin (Aspirin Chewable) 81 mg PO DAILY [facility] Last Admin: 03/15/18 07:35 Dose: 81 mg Cinacalcet (Sensipar) 90 mg PO [facility] Last Admin: 03/15/18 07:35 Dose: 90 mg Dextrose/Water (Dextrose 50%) 25 gm SLOW IVP PRN PRN PRN Reason: Hypoglycemia Famotidine (Pepcid) 20 mg PO DAILY [facility] Last Admin: 03/15/18 07:36 Dose: 20 mg Glipizide (Glucotrol Xl) 10 mg PO [facility] Last Admin: 03/15/18 07:41 Dose: 10 mg Glucagon (Glucagon) 1 mg IM PRN PRN PRN Reason: Hypoglycemia Guaifenesin (Robitussin Sf) 200 mg PO Q4H PRN PRN Reason: Cough Heparin Sodium (Porcine) (Heparin) 5,000 units SC BID [facility] Last Admin: 03/15/18 07:36 Dose: 5,000 units Hydralazine HCl (Apresoline) 10 mg SLOW IVP Q4H PRN PRN Reason: Systolic BP > 180 Ceftriaxone Sodium 2 gm/ (Sodium Chloride) 100 mls @ 200 mls/hr IVPB Q24HR [facility] Last Admin: 03/14/18 15:21 Dose: 100 mls Dextrose/Water (D5w) 1,000 mls @ 0 mls/hr IV .Q0M PRN; As Directed PRN Reason: Hypoglycemia Vancomycin HCl 1.25 gm/ Sodium (Chloride) 250 mls @ 166.667 mls/hr IVPB 0400, 1600 [facility] Last Admin: 03/15/18 04:50 Dose: 250 mls Insulin Human Lispro (Humalog) 0 units SC .AGGRESSIVE SLIDING PRN PRN Reason: Aggressive Correctional Scale Last Admin: 03/14/18 12:40 Dose: 9 unit Insulin Human Lispro (Humalog) 0 units SC .BEDTIME SLIDING SC PRN PRN Reason: Bedtime Correctional Scale Last Admin: 03/11/18 21:07 Dose: 2 unit Levothyroxine Sodium (Synthroid) 125 mcg PO 0600 [facility] Last Admin: 03/15/18 04:50 Dose: 125 mcg Loperamide HCl (Imodium) 2 mg PO PRN PRN PRN Reason: Diarrhea/Loose Stools Loratadine (Claritin) 10 mg PO DAILYPRN PRN PRN Reason: Sinus Symptoms Magnesium Hydroxide (Milk Of Magnesium) 30 ml PO DAILYPRN PRN PRN Reason: Constipation Magnesium Oxide (Magnesium Oxide) 400 mg PO BID [facility] Last Admin: 03/15/18 07:36 Dose: 400 mg Metoprolol Tartrate (Lopressor) 25 mg PO BID [facility] Last Admin: 03/15/18 07:36 Dose: 25 mg Mineral Oil/White Petrolatum (Eucerin Cream) 0 gm TOP BIDPRN PRN PRN Reason: Dry Skin Miscellaneous Medication (Pharmacy To Dose) 1 each IVPB ASDIR [facility] Morphine Sulfate (Morphine) 2 mg IV Q4H PRN PRN Reason: Pain Mycophenolate Mofetil (Cellcept) 500 mg PO BID [facility] Last Admin: 03/15/18 07:41 Dose: 500 mg Ondansetron HCl (Zofran Odt) 4 mg PO Q6H PRN PRN Reason: Nausea/Vomiting Ondansetron HCl (Zofran) 4 mg IVP Q6H PRN PRN Reason: Nausea/Vomiting Phenol (Chloraseptic [place] 180 Ml Bot) 0 ml PO PRN PRN PRN Reason: Sore Throat Prednisone (Prednisone) 5 mg PO QAM-WM [facility] Last Admin: 03/15/18 07:36 Dose: 5 mg Saccharomyces Boulardii (Florastor) 250 mg PO DAILY [facility] Last Admin: 03/15/18 07:36 Dose: 250 mg Senna (Senokot) 2 tab PO HSPRN PRN PRN Reason: Constipation Sodium Chloride (Flush - Normal Saline) 10 ml IVF Q12HR [facility] Last Admin: 03/15/18 07:41 Dose: 10 ml Sodium Chloride (Flush - Normal Saline) 10 ml IVF PRN PRN PRN Reason: Saline Flush Sodium Chloride ([place] Nasal [place] 0.65%) 0 ml EA NARE QIDPRN PRN PRN Reason: Nasal Congestion Tacrolimus (Prograf) 5 mg PO BID [facility] Last Admin: 03/15/18 07:35 Dose: 5 mg Zolpidem Tartrate (Ambien) 5 mg PO HSPRN PRN PRN Reason: Insomnia
[2018-03-15] MEDS: cefTRIAXone\\ROCEPHIN 2 GM in Sodium Chloride 0.9% 100 ML IVPB SCH (14:28)
[2018-03-15] MEDS: HumaLOG 300 UNITS/3 ML VIAL SC PRN (17:24)
[2018-03-16 04:15] LABS: Vancomycin, Trough 27.1 ug/mL
[2018-03-16] MEDS: Vancomycin HCl 1.25 GM in Sodium Chloride 0.9% 250 ML 250 ML IVPB SCH (04:38)
[2018-03-16] MEDS: Levothyroxine Sodium 125 MCG TAB PO SCH (06:00)
[2018-03-16 07:36] VITALS: BP 100/66; TEMP 98.3
[2018-03-16] MEDS: Tacrolimus 1 MG CAP PO SCH (08:07)
[2018-03-16] MEDS: predniSONE 5 MG TAB PO SCH (08:07)
[2018-03-16] MEDS: Cinacalcet HCl 30 MG TAB PO SCH (08:07)
[2018-03-16] MEDS: Metoprolol Tartrate 25 MG TAB PO SCH (08:07)
[2018-03-16] MEDS: Magnesium Oxide 400 MG TAB PO SCH (08:07)
[2018-03-16] MEDS: Saccharomyces boulardii 250 MG CAP PO SCH (08:07)
[2018-03-16] MEDS: Famotidine 20 MG TAB PO SCH (08:07)
[2018-03-16] MEDS: Heparin 5,000 UNITS/ML VIAL SC SCH (08:08)
[2018-03-16] MEDS: Mycophenolate 250 MG CAP PO SCH (08:54)
--- NOTE | 2018-03-16 10:09 | PDOC.PN ---
- Subjective Encounter Start Date: 03/16/18 Encounter Start Time: 08:30 Patient seen and examined for diabetic foot infection. No new complaints. No overnight events - Objective Resuscitation Status: Resuscitation Status FULL:Full Resuscitation MAR Reviewed: Yes Vital Signs & Weight: Vital Signs (12 hours) Temp Pulse Resp BP Pulse Ox 03/16/18 08:00 98.3 F 87 16 98 03/16/18 07:35 98.3 F 87 16 100/66 97 Weight Admit Weight 191 lb Weight 191 lb 12.835 oz I&O: 03/15/18 03/16/18 03/17/18 06:59 06:59 06:59 Intake Total 623 720 240 Balance 623 720 240 Result Diagrams: 03/13/18 04:57 03/13/18 04:57 Additional Labs: Accuchecks 03/16/18 03/15/18 03/15/18 05:04 20:22 10:55 POC Glucose 160 H 108 272 H Phys Exam - Physical Examination Constitutional: NAD HEENT: PERRLA, moist MMs, sclera anicteric Neck: no JVD, supple Respiratory: no wheezing, no rales, no rhonchi Cardiovascular: RRR, no significant murmur, no rub Gastrointestinal: soft, non-tender, no distention, positive bowel sounds Musculoskeletal: no edema, pulses present improved diabetic foot infection Neurological: non-focal, normal sensation, moves all 4 limbs Psychiatric: normal affect, A&O x 3 Skin: no rash, normal turgor Dx/Plan (1) Cellulitis of right foot Code(s): L03.115 - CELLULITIS OF RIGHT LOWER LIMB Status: Acute Comment: on vancomycin and rocephin, await sensitivities then switch to oral abx (2) Dehydration Code(s): E86.0 - DEHYDRATION Status: Resolved (3) Diabetic infection of right foot Code(s): E11.628 - TYPE 2 DIABETES MELLITUS WITH OTHER SKIN COMPLICATIONS; L08.9 - LOCAL INFECTION OF THE SKIN AND SUBCUTANEOUS TISSUE, UNSP Status: Acute Comment: (4) Hypercalcemia Code(s): E83.52 - HYPERCALCEMIA Status: Resolved (5) Hypomagnesemia Code(s): E83.42 - HYPOMAGNESEMIA Status: Acute Comment: (6) Hyponatremia Code(s): E87.1 - HYPO-OSMOLALITY AND HYPONATREMIA Status: Resolved (7) Thrombocytopenia Code(s): D69.6 - THROMBOCYTOPENIA, UNSPECIFIED Status: Acute (8) Diabetes type 2, controlled Code(s): E11.9 - TYPE 2 DIABETES MELLITUS WITHOUT COMPLICATIONS Status: Chronic (9) Dyslipidemia Code(s): E78.5 - HYPERLIPIDEMIA, UNSPECIFIED Status: Chronic (10) Hypertension Code(s): I10 - ESSENTIAL (PRIMARY) HYPERTENSION Status: Chronic (11) Hypothyroidism Code(s): E03.9 - HYPOTHYROIDISM, UNSPECIFIED Status: Chronic (12) Immunosuppressed status Code(s): D89.9 - DISORDER INVOLVING THE IMMUNE MECHANISM, UNSPECIFIED Status: Chronic - Plan cont current plan of care, continue antibiotics * change to keflex and doxy * medication reviewed as below * symptomatic treatment * see discharge summery. Review of Systems - Review of Systems Eyes: negative: Pain, Vision Change, Conjunctivae Inflammation, Eyelid Inflammation, Redness, Other ENT: negative: Ear Pain, Ear Discharge, Nose Pain, Nose Discharge, Nose Congestion, Mouth Pain, Mouth Swelling, Throat Pain, Throat Swelling, Other Respiratory: negative: Cough, Dry, Shortness of Breath, Hemoptysis, SOB with Excertion, Pleuritic Pain, Sputum, Wheezing Cardiovascular: negative: chest pain, palpitations, orthopnea, paroxysmal nocturnal dyspnea, edema, light headedness, other Gastrointestinal: negative: Nausea, Vomiting, Abdominal Pain, Diarrhea, Constipation, Melena, Hematochezia, Other Genitourinary: negative: Dysuria, Frequency, Incontinence, Hematuria, Retention , Other Musculoskeletal: negative: Neck Pain, Shoulder Pain, Arm Pain, Back Pain, Hand Pain, Leg Pain, Foot Pain, Other - Medications/Allergies Allergies/Adverse Reactions: Allergies Allergy/AdvReac Type Severity Reaction Status Date / Time No Known Drug Allergies Allergy Verified 03/11/18 20:32 Medications: Current Medications Acetaminophen (Tylenol) 650 mg PO Q4H PRN PRN Reason: Headache/Fever or Pain Last Admin: 03/11/18 21:12 Dose: 650 mg Hydrocodone Bitart/Acetaminophen ([place] 5/325) 1 tab PO Q4H PRN PRN Reason: Moderate Pain (4-6) Last Admin: 03/12/18 14:23 Dose: 1 tab Al Hydroxide/Mg Hydroxide (Maalox) 30 ml PO Q6H PRN PRN Reason: Heartburn or Indigestion Artificial Tears (Tears Naturale) 0 drop EA EYE PRN PRN PRN Reason: Dry Eyes Aspirin (Aspirin Chewable) 81 mg PO DAILY [facility] Last Admin: 03/16/18 08:07 Dose: 81 mg Cinacalcet (Sensipar) 90 mg PO [facility] Last Admin: 03/16/18 08:07 Dose: 90 mg Dextrose/Water (Dextrose 50%) 25 gm SLOW IVP PRN PRN PRN Reason: Hypoglycemia Famotidine (Pepcid) 20 mg PO DAILY [facility] Last Admin: 03/16/18 08:07 Dose: 20 mg Glipizide (Glucotrol Xl) 10 mg PO [facility] Last Admin: 03/16/18 08:07 Dose: 10 mg Glucagon (Glucagon) 1 mg IM PRN PRN PRN Reason: Hypoglycemia Guaifenesin (Robitussin Sf) 200 mg PO Q4H PRN PRN Reason: Cough Heparin Sodium (Porcine) (Heparin) 5,000 units SC BID [facility] Last Admin: 03/16/18 08:08 Dose: 5,000 units Hydralazine HCl (Apresoline) 10 mg SLOW IVP Q4H PRN PRN Reason: Systolic BP > 180 Ceftriaxone Sodium 2 gm/ (Sodium Chloride) 100 mls @ 200 mls/hr IVPB Q24HR [facility] Last Admin: 03/15/18 14:28 Dose: 100 mls Dextrose/Water (D5w) 1,000 mls @ 0 mls/hr IV .Q0M PRN; As Directed PRN Reason: Hypoglycemia Vancomycin HCl 1.25 gm/ Sodium (Chloride) 250 mls @ 166.667 mls/hr IVPB 0400, 1600 [facility] Insulin Human Lispro (Humalog) 0 units SC .AGGRESSIVE SLIDING PRN PRN Reason: Aggressive Correctional Scale Last Admin: 03/15/18 17:24 Dose: 9 unit Insulin Human Lispro (Humalog) 0 units SC .BEDTIME SLIDING SC PRN PRN Reason: Bedtime Correctional Scale Last Admin: 03/11/18 21:07 Dose: 2 unit Levothyroxine Sodium (Synthroid) 125 mcg PO 0600 [facility] Last Admin: 03/16/18 06:00 Dose: 125 mcg Loperamide HCl (Imodium) 2 mg PO PRN PRN PRN Reason: Diarrhea/Loose Stools Loratadine (Claritin) 10 mg PO DAILYPRN PRN PRN Reason: Sinus Symptoms Magnesium Hydroxide (Milk Of Magnesium) 30 ml PO DAILYPRN PRN PRN Reason: Constipation Magnesium Oxide (Magnesium Oxide) 400 mg PO BID [facility] Last Admin: 03/16/18 08:07 Dose: 400 mg Metoprolol Tartrate (Lopressor) 25 mg PO BID [facility] Last Admin: 03/16/18 08:07 Dose: 25 mg Mineral Oil/White Petrolatum (Eucerin Cream) 0 gm TOP BIDPRN PRN PRN Reason: Dry Skin Miscellaneous Medication (Pharmacy To Dose) 1 each IVPB ASDIR [facility] Morphine Sulfate (Morphine) 2 mg IV Q4H PRN PRN Reason: Pain Mycophenolate Mofetil (Cellcept) 500 mg PO BID [facility] Last Admin: 03/16/18 08:54 Dose: 500 mg Ondansetron HCl (Zofran Odt) 4 mg PO Q6H PRN PRN Reason: Nausea/Vomiting Ondansetron HCl (Zofran) 4 mg IVP Q6H PRN PRN Reason: Nausea/Vomiting Phenol (Chloraseptic [place] 180 Ml Bot) 0 ml PO PRN PRN PRN Reason: Sore Throat Prednisone (Prednisone) 5 mg PO QAM-WM [facility] Last Admin: 03/16/18 08:07 Dose: 5 mg Saccharomyces Boulardii (Florastor) 250 mg PO DAILY [facility] Last Admin: 03/16/18 08:07 Dose: 250 mg Senna (Senokot) 2 tab PO HSPRN PRN PRN Reason: Constipation Sodium Chloride (Flush - Normal Saline) 10 ml IVF Q12HR [facility] Last Admin: 03/16/18 08:55 Dose: 10 ml Sodium Chloride (Flush - Normal Saline) 10 ml IVF PRN PRN PRN Reason: Saline Flush Sodium Chloride ([place] Nasal [place] 0.65%) 0 ml EA NARE QIDPRN PRN PRN Reason: Nasal Congestion Tacrolimus (Prograf) 5 mg PO BID [facility] Last Admin: 03/16/18 08:07 Dose: 5 mg Zolpidem Tartrate (Ambien) 5 mg PO HSPRN PRN PRN Reason: Insomnia
--- NOTE | 2018-03-16 11:02 | DIS ---
DATE OF ADMISSION: 03/11/2018 DATE OF DISCHARGE: 03/16/2018 PRIMARY CARE PHYSICIAN: Dr. Acosta Heart. DISCHARGE DISPOSITION: Home. PRIMARY DISCHARGE DIAGNOSES: Cellulitis of right foot with a diabetic foot infection; hypomagnesemia , corrected; thrombocytopenia, improved; hypercalcemia, corrected; hyponatremia, corrected; dehydrati on, corrected. SECONDARY DISCHARGE DIAGNOSES: Chronic immunosuppression, hypothyroidism, hypertension, dyslipidemia , diabetes type 2, history of kidney transplant. PRIMARY PROCEDURE AND OPERATION: None. RADIOLOGICAL INVESTIGATION: Foot x-ray was unremarkable other than soft tissue swelling. SIGNIFICANT LABORATORY DATA: WBC 4.6, hemoglobin 11.5, platelet 119. Sodium 134, creatinine 0.74, m agnesium 1.2, calcium 10.1. LFT normal. Urinalysis unremarkable. Blood culture negative. Foot cul ture grew Staph aureus. DISCHARGE MEDICATIONS: Keflex 500 mg p.o. twice daily for 10 days, doxycycline 100 mg twice daily fo r 10 days, Florastor 250 mg p.o. daily for 10 days, aspirin 81 mg p.o. daily, Sensipar 90 mg p.o. mary ly, Pepcid 20 mg daily, Glucotrol 10 mg p.o. daily, Synthroid 125 mcg p.o. daily, magnesium 400 mg p. o. b.i.d., metoprolol tartrate 25 mg p.o. b.i.d., CellCept 500 mg p.o. b.i.d., prednisone 5 mg p.o. d aily, Crestor 10 mg p.o. daily, Prograf 5 mg p.o. b.i.d. CONTRAINDICATIONS: None. CODE STATUS: FULL CODE. INPATIENT CONSULTANTS: Dr. Weaver was consulted while in hospital. TEST RESULTS PENDING ON DISCHARGE: None. ALLERGIES: No known drug allergy. DISCHARGE PLAN: Post hospital, the patient will follow up with primary care physician in 1 week. HOSPITAL COURSE: A 68-year-old female who has underlying above-mentioned medical problem as well as she is on chronic immunosuppressive therapy. She was brought to emergency room for right diabetic fo ot infection. She was treated in the primary care physician's office with IV antibiotic therapy with out any improvement, it was getting worse rapidly and that is why we admitted this patient on medical floor. We consulted Dr. Weaver who did bedside minor I&D for infection. The patient was treated wi vancomycin and Rocephin while in hospital. On discharge, we changed to Keflex and doxycycline for another 10 days. The patient's diabetic foot infection and cellulitis are significantly improving. The patient is given instruction about wound care. She will resume all her previous medications. The patient is seen and examined at bedside today. Overall, the patient is medically stable for disc harge today. Please see my progress note from today for further details.
[2018-03-16] MEDS ORDERED: Vancomycin HCl 1.25 GM in Sodium Chloride 0.9% 250 ML 250 ML IVPB SCH (16:00)
== END 2018-03-16 10:44 | disposition home or self-care (01) | DRG 638 ==
LOC: ERS 10:03 → T4-B 14:11
PROVIDERS: ADMIT Internal Medicine; ATTEND Internal Medicine
DX: E11.628 Type 2 diabetes mellitus with other skin complications (principal); L03.115 Cellulitis of right lower limb; E87.1 Hypo-osmolality and hyponatremia; Z94.0 Kidney transplant status; Q61.3 Polycystic kidney, unspecified; B95.61 Methicillin susceptible Staphylococcus aureus infection as the cause of diseases classified elsewhere; E86.0 Dehydration; E83.52 Hypercalcemia; E83.42 Hypomagnesemia; D69.6 Thrombocytopenia, unspecified; E78.5 Hyperlipidemia, unspecified; I10 Essential (primary) hypertension; E03.9 Hypothyroidism, unspecified; D89.9 Disorder involving the immune mechanism, unspecified
CPT/HCPCS: 36415; 36416; 80048; 80053; 80202; 81001; 83605; 83735; 85025; 86140; 87040; 87070; 87077; 87186; 87205; 96365; 96366; 96367; A4216; G8978-GP-CL; G8979-GP-CJ; G8987-GO-CH; G8988-GO-CH; G8989-GO-CH; J0692; J0696; J1644; J3370; J3475; J7050; J7507; J7517

== ENCOUNTER 2019-08-02 13:46 | Inpatient (IN) | payer MEDICARE ==
[2019-08-02 15:10] LABS: #Lymphocytes 0.6 thou/uL (1.20-3.40); #Monocytes 0.2 thou/uL (0.11-0.59); #Neutrophils 2.4 thou/uL (1.40-6.50); %Basophils 0.1 % (0.0-1.0); %Eosinophils 0.5 % (0.0-10.0); %Lymphocytes 19.8 % (21.0-51.0); %Monocytes 6.5 % (0.0-10.0); %Neutrophils 73.1 % (42.0-75.0); Mean Corpuscular HGB CONC 34.2 g/dL (32.0-36.0); Mean Corpuscular Hemoglobin 32.5 pg (27.0-31.0); Mean Platelet Volume 8.8 fL (7.4-10.4); Platelet Count 105 thou/uL (130-400); RBC Distribution Width 12.8 % (11.5-14.5); Red Blood Cell (RBC) Count 3.07 mill/uL (4.20-5.40); White Blood Cell (WBC) Count 3.3 thou/uL (4.8-10.8)
[2019-08-02 15:31] LABS: INR-International Normal Ratio 1.2; PTT 32.8 SEC (22.9-36.1); Prothrombin Time 15.3 SEC (12.0-14.7)
[2019-08-02 15:33] LABS: ALT (SGPT) 14 U/L (8-55); AST (SGOT) 12 U/L (5-34); Albumin 4.1 g/dL (3.4-4.8); Alkaline Phosphatase 46 U/L (40-110); Anion Gap 14 mmol/L (10-20); BUN (Urea Nitrogen) 12 mg/dL (9.8-20.1); Bilirubin, Total 0.9 mg/dL (0.2-1.2); CK (CPK) 252 U/L (29-168); Calc. Creatinine Clearance 0 mL/min (70-130); Calcium 7.7 mg/dL (7.8-10.44); Carbon Dioxide 28 mmol/L (23-31); Chloride 94 mmol/L (98-107); Estimated GFR-MDRD 39; Globulin 2.2 g/dL (2.4-3.5); Glucose 274 mg/dL (80-115); Magnesium 1.2 mg/dL (1.6-2.6); Potassium 4.4 mmol/L (3.5-5.1); Protein, Total 6.3 g/dL (6.0-8.3); Sodium 132 mmol/L (136-145)
[2019-08-02] MEDS ORDERED: Magnesium 2 GM/50 ML BAG (IN WATER) ONE (16:33)
--- NOTE | 2019-08-02 16:37 | RAD ---
PORTABLE CHEST 1 VIEW: Date: 08/02/19 Time: 1420 hours HISTORY: Generalized weakness, edema. FINDINGS/IMPRESSION: Comparison made with exam of 04/30/17. The heart is enlarged. No lobar consolidation, pneumothoraces, or large effusions are seen. There is no evidence of deni pulmonary edema. Small pleural effusions cannot be excluded. POS: [facility]
[2019-08-02] MEDS ORDERED: Senokot S 8.6-50 MG TAB PO PRN (17:14)
[2019-08-02] MEDS ORDERED: Acetaminophen 325 MG TAB PO PRN (17:14)
[2019-08-02] MEDS ORDERED: Dextrose 5% in Water 1,000 ML IV PRN (17:17)
[2019-08-02] MEDS ORDERED: Dextrose 50% Abboject 50 ML SYRINGE SLOW IVP PRN (17:17)
[2019-08-02 17:47] LABS: Phosphorus 2.8 mg/dL (2.3-4.7)
[2019-08-02] MEDS: Sodium Chloride 0.9% 1,000 ML IV SCH (23:26)
[2019-08-02] MEDS: HumaLOG 300 UNITS/3 ML VIAL SC PRN (23:27)
--- NOTE | 2019-08-03 00:11 | CON ---
DATE OF CONSULTATION: 08/02/2019 CONSULTING PHYSICIAN: Julieth Bird MD. REASON FOR CONSULTATION: CAMPOS, history of renal transplant. REASON FOR ADMISSION: Not feeling well. HISTORY OF PRESENT ILLNESS: This is a 69-year-old female with history of renal transplant, hypertension, hyperlipidemia, type 2 diabetes, came to the hospital with not feeling well. The patient was not eating very well for last few days and was brought to the hospital. Creatinine is 1.5 from baseline of 0.7 to 0.8. She did have right renal transplant in 2012 [place]. No chest pain or palpitation. No fever or chills. No diarrhea. No abdominal pain. PAST MEDICAL HISTORY: Positive for hypertension, renal failure, hypothyroidism, type 2 diabetes, polycystic kidney. PAST SURGICAL HISTORY: Right renal transplant, dialysis access placement, and hysterectomy. HOME MEDICATIONS: 1. CellCept. 2. Prednisone. 3. Pepcid. 4. Metoprolol. 5. Sensipar. 6. Aspirin. 7. Glucotrol. 8. Magnesium oxide. 9. Levothyroxine. 10. Tacrolimus. ALLERGIES: NO KNOWN DRUG ALLERGIES. SOCIAL HISTORY: No smoking, alcohol, or illicit drugs. FAMILY HISTORY: No history of kidney disease. REVIEW OF SYSTEMS: CONSTITUTIONAL: Negative for weight loss or gain, ability to conduct usual activities. SKIN: Negative for rash, itching. EYES: Negative for double vision, pain. ENT/MOUTH: Negative for nose bleeding, neck stiffness, pain, tenderness. CARDIOVASCULAR: Negative for palpitations, dyspnea on exertion, orthopnea. RESPIRATORY: Negative for shortness of breath, wheezing, cough, hemoptysis, fever or night sweats. GASTROINTESTINAL: Negative for poor appetite, abdominal pain, heartburn, nausea, vomiting, constipation, or diarrhea. GENITOURINARY: Negative for urgency, frequency, dysuria, nocturia. MUSCULOSKELETAL: Negative for pain, swelling. NEUROLOGIC/PSYCHIATRIC: Negative for anxiety, depression. ALLERGY/IMMUNOLOGIC: Negative for skin rash, bleeding tendency. PHYSICAL EXAMINATION: GENERAL: This is a well-built female, in no apparent distress. VITAL SIGNS: Temperature 98.2, pulse 70, respiratory rate 18, blood pressure 150/87. HEENT: Atraumatic and normocephalic. Oral mucosa is moist. NECK: Supple. CV: S1 and S2. Regular rate and rhythm. RESPIRATORY: Clear. GASTROINTESTINAL: Abdomen is soft. MUSCULOSKELETAL: No tenderness. No edema. DERMATOLOGIC: No skin rash. NEUROLOGIC: Alert and awake. PSYCHIATRIC: Mood and affect normal. LABORATORY DATA: Hemoglobin is 10.0. Potassium is 4.4, sodium is 132, BUN is 12, creatinine is 1.5. Calcium 7.7, magnesium 1.2. ASSESSMENT AND PLAN: 1. Acute kidney injury with history of renal transplant, most likely from volume depletion. Agree with checking tacrolimus level and continue hydration. We will monitor her hyponatremia. Continue fluids for hypochloremia. 2. Hypomagnesemia, replaced. 3. Hypocalcemia. Check PTH level. 4. Edema, controlled. 5. History of hypertension. 6. History of anemia, most likely chronic disease. Continue IV fluids. Check Prograf level and we will follow. Thank you for the consult. Job ID: [id number]
[2019-08-03 01:11] VITALS: BMI 24.7
[2019-08-03 04:32] LABS: Bilirubin Negative (Negative); Blood, Urine Negative (Negative); Clarity Clear (Clear); Glucose, Urine (Dipstick) 70 mg/dL (Negative); Leukocyte Negative Leu/uL (Negative); Nitrite Negative (Negative); Protein, Urine (Dipstick) Negative (Neg-Trace); RBC/HPF 0-3 HPF (0-3); Squamous Epithelial 0-3 HPF (0-3); Urobilinogen Normal mg/dL (Less than 2)
[2019-08-03 04:33] LABS: Bacteria/HPF 1+ HPF (None Seen)
[2019-08-03 04:36] LABS: Urine Culture Reflex Yes Yes
[2019-08-03 05:17] LABS: #Lymphocytes 0.8 thou/uL (1.20-3.40); #Monocytes 0.3 thou/uL (0.11-0.59); #Neutrophils 1.7 thou/uL (1.40-6.50); %Basophils 1.2 % (0.0-1.0); %Eosinophils 0.8 % (0.0-10.0); %Lymphocytes 29.1 % (21.0-51.0); %Monocytes 9.7 % (0.0-10.0); %Neutrophils 59.3 % (42.0-75.0); Hemoglobin 10.4 g/dL (12.0-16.0); Mean Corpuscular HGB CONC 34.5 g/dL (32.0-36.0); Mean Corpuscular Hemoglobin 33.3 pg (27.0-31.0); Mean Corpuscular Volume 96.7 fL (78.0-98.0); Platelet Count 100 thou/uL (130-400); RBC Distribution Width 12.8 % (11.5-14.5); Red Blood Cell (RBC) Count 3.14 mill/uL (4.20-5.40); White Blood Cell (WBC) Count 2.8 thou/uL (4.8-10.8)
[2019-08-03 05:33] LABS: Anion Gap 14 mmol/L (10-20); BUN (Urea Nitrogen) 9 mg/dL (9.8-20.1); Calc. Creatinine Clearance 47 mL/min (70-130); Calcium 7.3 mg/dL (7.8-10.44); Carbon Dioxide 23 mmol/L (23-31); Chloride 98 mmol/L (98-107); Estimated GFR-MDRD 55; Glucose 172 mg/dL (80-115); Potassium 3.4 mmol/L (3.5-5.1); Sodium 132 mmol/L (136-145)
[2019-08-03 05:35] LABS: Iron 56 ug/dL (50-170); Iron Binding Capacity, Total 289 mcg/dL (265-497); Phosphorus 2.4 mg/dL (2.3-4.7)
[2019-08-03 05:54] LABS: Ferritin 664.51 ng/mL (10-291)
[2019-08-03 05:56] LABS: Vitamin D, 25 Hydroxy 27.3 ng/ml (> 30.0)
[2019-08-03] MEDS: Sodium Chloride 0.9% 1,000 ML IV SCH ×3 (06:09→22:29)
--- NOTE | 2019-08-03 07:39 | HP ---
CHIEF COMPLAINT: Generalized weakness, fatigue, and decreased appetite. HISTORY OF PRESENT ILLNESS: The patient is a 69-year-old female with a history of diabetes, hypertension, polycystic kidney disease, status post transplant, who presents to the hospital with complaints of decreased appetite and generalized weakness. The patient's family who was at that bedside, especially the daughter states that for the past 2 to 3 weeks, she has noticed a gradual decrease in oral intake and also just the patient complaining of feeling tired all over. They had an appointment with her primary care doctor on Friday; however, today the patient just felt so tired to the point that she really does not want to do anything, so they brought her into the hospital for further evaluation. The patient denies any fevers or chills, any nausea, vomiting, diarrhea, any abdominal pain, any fevers, or chills. She denies any shortness of breath on exertion either. The patient just states that she does not have an appetite. No recent major changes in the medications. The patient's family did state that the patient was on Megace in the past; however, that has not been started recently. PAST MEDICAL HISTORY: 1. History of polycystic kidney disease. 2. Diabetes. 3. Hypertension. 4. Hypercholesterolemia. 5. Hypothyroidism. PAST SURGICAL HISTORY: She had a hysterectomy and renal transplant. ALLERGIES: SHE HAS NO KNOWN DRUG ALLERGIES. MEDICATIONS: 1. Prednisone. 2. Levothyroxine. 3. Tacrolimus. 4. Prednisone. 5. Aspirin 81 mg daily. 6. Magnesium. 7. CellCept. REVIEW OF SYSTEMS: All negative except for the ones mentioned above in the HPI. PHYSICAL EXAMINATION: VITAL SIGNS: Temperature of 98.0, respiratory rate 16, oxygen saturation 100% on room air, heart rate 71, blood pressure 134/96. GENERAL: She is awake, alert, oriented x3, does not appear in distress. HEENT: Normocephalic and atraumatic. No lymphadenopathy noted. Pupils are equal and reactive to light. CV: S1 and S2 present. No murmurs, rubs, or gallops. ABDOMEN: Soft and nontender. Bowel sounds are present x2. LUNGS: Clear to auscultation. No rhonchi or wheezes noted. EXTREMITIES: +1 lower extremity edema to her feet. Neurovascular watson, no focal deficits noted. SKIN: No cuts, lesions, or bruises noted. LABORATORY DATA: Laboratory results are as of the following: WBC 3.3 hemoglobin of 10.0, hematocrit of , platelets of 105. Chemistry; sodium of 132, potassium 4.4, BUN of 12, creatinine 1.58, calcium 7.7, magnesium 1.2, phosphorus of 2.8, CK of 252. Troponin x1 negative. TSH is 7.4. DIAGNOSTIC STUDIES: The patient had a chest x-ray, which did not indicate any acute abnormalities; however, did indicate an enlarged heart. ASSESSMENT AND PLAN: The patient is a very pleasant 69-year-old female, who presents to the hospital with generalized weakness. 1. Generalized weakness, could be secondary to cardiac versus mild acute kidney injury. We will start her on some gentle hydration. Renal has been consulted. We will get an echocardiogram. There is no previous echo that are in our system. Also, we will adjust her thyroid medications. Her TSH was elevated. I will have to go up on her Synthroid. I have advised the patient's daughter to bring in her home medications. Also, I will check her tacrolimus levels and also check a urine on her. There was no urine done. 2. Acute kidney injury. Her baseline creatinine is 0.96, this was in February 2019, today it is 1.58. We may consider getting a renal ultrasound with Dopplers to look at her renal transplant and also Nephrology has been consulted. We will check strict Is and Os. 3. Diabetes, uncontrolled. We will check a hemoglobin A1c. Put the patient on sliding scale insulin. 4. Prolonged QTc, her QTc was 618. Her magnesium was 1.2. We have given her magnesium. Her repeat EKG indicated a QTc of 518. Again, we will recheck another magnesium and also repeat another EKG. 5. Deep venous thrombosis prophylaxis. We will put the patient on SCDs. Job ID: [id number]
[2019-08-03] MEDS: Enoxaparin Sodium 40 MG/0.4 ML SYRINGE SC SCH (08:09)
[2019-08-03] MEDS: Rosuvastatin 10 MG TAB PO SCH (08:09)
[2019-08-03] MEDS: Aspirin 81 mg Enteric Coated Tablet PO SCH (08:09)
[2019-08-03] MEDS ORDERED: Potassium Chloride 10 MEQ in Premix Bag 1 BAG IVPB SCH (09:30)
[2019-08-03] MEDS ORDERED: Potassium Chloride 20 MEQ TAB PO SCH (09:30)
--- NOTE | 2019-08-03 10:13 | PRG ---
DATE OF SERVICE: 08/03/2019 SUBJECTIVE: Patient was seen and examined at bedside and overnight events noted. Patient denies any shortness of breath or chest pain or palpitation. No history of nausea or vomiting or diarrhea or fever or chills or cramps. OBJECTIVE: GENERAL: This is a well-built female, in no apparent distress. VITAL SIGNS: Temperature 97.9. Heart rate 69. Respiratory rate 18. Blood pressure 118/74. HEENT: Atraumatic, normocephalic. Oral mucosa is moist NECK: Supple. CARDIOVASCULAR: S1, S2 heard. Rate and rhythm regular. RESPIRATORY: Clear to auscultation. GASTROINTESTINAL: Abdomen is soft. MUSCULOSKELETAL: No tenderness. No edema. DERMATOLOGIC: No skin rash. NEUROLOGIC: Alert and awake and oriented X3. No focal neurologic deficits. Moving all the extremities. PSYCHIATRIC: Mood and affect normal. LABORATORY DATA: Creatinine 1.1, BUN 9. ASSESSMENT AND PLAN: 1. Acute kidney injury, better. 2. Chronic kidney disease, stage 3, with a history of renal transplant. 3. Hypomagnesemia, replace and monitor. 4. Hypocalcemia. I will start calcium with vitamin D. 5. Edema, controlled. 6. History of hypertension. 7. Anemia. Creatinine is better. Advised to encourage p.o. intake. Family is asking for Megace, but advised on the long-term risk factors and adverse effects and encouraged to have oral intake at this point, we will change it to a regular diet for now. Job ID: [id number]
[2019-08-03] MEDS ORDERED: Cinacalcet HCl 30 MG TAB PO SCH (11:15)
[2019-08-03] MEDS ORDERED: Mycophenolate 250 MG CAP PO SCH (11:15)
[2019-08-03] MEDS ORDERED: Calcium Carbonate + Vit D 1 TAB PO SCH (11:15)
[2019-08-03] MEDS ORDERED: Tacrolimus 1 MG CAP PO SCH (11:15)
[2019-08-03] MEDS ORDERED: Magnesium Oxide 400 MG TAB PO SCH ×2 (11:15→21:00)
[2019-08-03] MEDS ORDERED: Metoprolol Tartrate 50 MG TAB PO SCH ×2 (11:15→21:00)
[2019-08-03] MEDS ORDERED: predniSONE 5 MG TAB PO SCH (11:15)
[2019-08-03] MEDS: HumaLOG 300 UNITS/3 ML VIAL SC PRN (11:18)
[2019-08-03 12:51] LABS: Troponin I Less than 0.010 ng/mL (< 0.028)
[2019-08-03] MEDS: Calcium Carbonate + Vit D 1 TAB PO SCH (16:19)
--- NOTE | 2019-08-03 17:03 | PDOC.HOSPP ---
- Subjective Encounter Date: 08/03/19 Encounter Time: 10:00 Subjective: pt up in bed no complains - Objective Vital Signs & Weight: Vital Signs (12 hours) Temp Pulse Pulse Resp BP BP BP 08/03/19 16:00 97.4 F L 68 16 98/56 L 08/03/19 11:09 97.6 F 66 14 111/66 08/03/19 09:42 123/70 130/72 08/03/19 09:30 67 123/70 08/03/19 08:00 97.9 F 69 18 118/74 Pulse Ox Pulse Ox 08/03/19 16:00 95 08/03/19 11:09 97 08/03/19 09:42 08/03/19 09:30 97 08/03/19 08:00 97 Weight Weight 144 lb 7 oz I&O: 08/02/19 08/03/19 08/04/19 06:59 06:59 06:59 Intake Total 700 100 Balance 700 100 Result Diagrams: 08/03/19 04:33 08/03/19 04:33 Additional Labs: Accuchecks 08/03/19 08/03/19 08/02/19 11:06 05:26 21:11 POC Glucose 199 H 152 H 232 H Hospitalist ROS - Review of Systems Cardiovascular: denies: chest pain, palpitations, orthopnea, paroxysmal noc. dyspnea, edema, light headedness, other Gastrointestinal: denies: nausea, vomiting, abdominal pain, diarrhea, constipation, melena, hematochezia, other Genitourinary: denies: dysuria, frequency, incontinence, hematuria, retention, other - Medication Medications: Active Medications Generic Name Dose Route Start Last Admin Trade Name Navjotq PRN Reason Stop Dose Admin Aspirin 81 mg 08/03/19 09:00 08/03/19 08:09 Ecotrin PO 81 mg DAILY [facility] Administration Calcium/Vitamin D 1 tab 08/03/19 17:00 08/03/19 16:19 Caltrate 600 + Vit D PO Not Given BID[facility] Enoxaparin Sodium 40 mg 08/03/19 09:00 08/03/19 08:09 Lovenox SC 40 mg 0900 [facility] Administration Sodium Chloride 1,000 mls @ 100 mls/hr 08/02/19 17:30 08/03/19 11:28 Normal Saline 0.9% IV 1,000 mls .Q10H [facility] Administration Insulin Human Lispro 0 units 08/02/19 17:17 08/03/19 11:18 Humalog SC 2 units .MODERATE SLIDING SC PRN Administration Moderate Correctional Scale Rosuvastatin Calcium 10 mg 08/03/19 09:00 08/03/19 08:09 Crestor PO 10 mg DAILY [facility] Administration - Exam Heart: negative: RRR, no murmur, no gallops, no rubs, normal peripheral pulses, irregular, diminshed peripheral pulses, murmur present, II/IV, III/IV Respiratory: negative: CTAB, no wheezes, no rales, no ronchi, normal chest expansion, no tachypnea, normal percussion, rales, rhonchi, tachypneic, wheezes Gastrointestinal: negative: soft, non-tender, non-distended, normal bowel sounds , no palpable masses, no hepatomegaly, no splenomegaly, no bruit, no guarding, no rigidity, tender to palpation, distended, diminished bowl sounds, voluntary guarding Hosp A/P (1) Generalized weakness Code(s): R53.1 - WEAKNESS Status: Acute (2) Renal transplant recipient Code(s): Z94.0 - KIDNEY TRANSPLANT STATUS Status: Acute (3) CAMPOS (acute kidney injury) Code(s): N17.9 - ACUTE KIDNEY FAILURE, UNSPECIFIED Status: Acute (4) Pericardial effusion Code(s): I31.3 - PERICARDIAL EFFUSION (NONINFLAMMATORY) Status: Acute (5) Diabetes type 2, controlled Code(s): E11.9 - TYPE 2 DIABETES MELLITUS WITHOUT COMPLICATIONS Status: Chronic (6) Hypertension Code(s): I10 - ESSENTIAL (PRIMARY) HYPERTENSION Status: Chronic (7) Hypothyroidism Code(s): E03.9 - HYPOTHYROIDISM, UNSPECIFIED Status: Chronic - Plan echo indicated large pericardial effusion. CV surgery consulted, renal function improved. family notified. will encourage oral intake. hold bp meds for now.
[2019-08-03] MEDS: Tacrolimus 1 MG CAP PO SCH (22:06)
[2019-08-03] MEDS: Mycophenolate 250 MG CAP PO SCH (22:06)
--- NOTE | 2019-08-03 22:43 | CON ---
DATE OF CONSULTATION: HISTORY OF PRESENT ILLNESS: This is a 69-year-old female who has had prior renal transplant with a poor appetite, fatigue, and sleeps a lot according to her family. This resulted in admission to the hospital. ADDITIONAL PAST MEDICAL HISTORY: Includes polycystic kidney disease, diabetes, hypertension, dyslipidemia, and hypothyroidism. PAST SURGICAL HISTORY: Includes a hysterectomy, renal transplant as well as removal of both polycystic kidneys. Last year, she had some electrolyte issues and was hospitalized in [place] at the location of her transplant service and underwent a pericardiocentesis. No diagnosis was made for her pericardial fluid at that time. LABORATORY DATA: She has a chest x-ray here from about 2017 showing water bottle heart similar to the finding on her current x-ray. Cardiac echo today shows a moderate-sized pericardial effusion with no tamponade physiology. MEDICATIONS: Medications are listed, include, 1. Prednisone. 2. CellCept. 3. Levothyroxine. 4. Tacrolimus. 5. Aspirin. 6. Magnesium. ALLERGIES: NONE KNOWN. PHYSICAL EXAMINATION: GENERAL: Lady appearing her stated age. VITALS SIGNS: Height 5 feet 4 inches, weight 144 pounds. Blood pressure is recorded as 120/70, heart rate is 66 and regular. NECK: She has no carotid bruits. She does have neck veins visible in the supine position. LUNGS: Clear to auscultation anteriorly. CARDIAC: Regular rhythm with a very soft systolic murmur at the right upper sternal border. ABDOMEN: Soft and nontender with a midline abdominal incision. EXTREMITIES: She has no peripheral edema at this time with palpable femoral and popliteal pulses and I do not appreciate any pedal pulses. At this time, the patient appears to have a chronic pericardial effusion that has previously undergone pericardiocentesis and evidently negative workup at that time according to the family. At this time, I would be hesitant to recommend drainage since she has no tamponade physiology and has had previous evaluation of this pericardial fluid. Job ID: [id number]
[2019-08-04] MEDS ORDERED: predniSONE 5 MG TAB PO SCH (08:00)
[2019-08-04] MEDS: Aspirin 81 mg Enteric Coated Tablet PO SCH (08:14)
[2019-08-04] MEDS: Rosuvastatin 10 MG TAB PO SCH (08:14)
[2019-08-04] MEDS: Mycophenolate 250 MG CAP PO SCH (08:15)
[2019-08-04] MEDS: Tacrolimus 1 MG CAP PO SCH (08:15)
[2019-08-04] MEDS: Enoxaparin Sodium 40 MG/0.4 ML SYRINGE SC SCH (08:15)
[2019-08-04] MEDS: Calcium Carbonate + Vit D 1 TAB PO SCH ×2 (08:15→17:27)
[2019-08-04] MEDS: Sodium Chloride 0.9% 1,000 ML IV SCH (08:23)
[2019-08-04] MEDS ORDERED: Magnesium Oxide 400 MG TAB PO SCH (09:00)
[2019-08-04] MEDS ORDERED: Cinacalcet HCl 30 MG TAB PO SCH (09:00)
[2019-08-04 10:43] LABS: Anion Gap 15 mmol/L (10-20); BUN (Urea Nitrogen) 6 mg/dL (9.8-20.1); Calc. Creatinine Clearance 52 mL/min (70-130); Calcium 7.7 mg/dL (7.8-10.44); Carbon Dioxide 20 mmol/L (23-31); Chloride 101 mmol/L (98-107); Estimated GFR-MDRD 61; Glucose 171 mg/dL (80-115); Potassium 3.8 mmol/L (3.5-5.1); Sodium 132 mmol/L (136-145)
[2019-08-04] MEDS: HumaLOG 300 UNITS/3 ML VIAL SC PRN (12:20)
[2019-08-04 16:36] VITALS: BP 122/71; TEMP 98.3
--- NOTE | 2019-08-04 20:26 | PRG ---
DATE OF SERVICE: 08/04/2019 SUBJECTIVE: Patient was seen and examined at bedside and overnight events noted. Patient denies any shortness of breath or chest pain or palpitation. No history of nausea or vomiting or diarrhea or fever or chills or cramps. OBJECTIVE: GENERAL: This is a well-built female, in no apparent distress. VITAL SIGNS: Temperature 98.3. Pulse 77. Respiratory rate 18. Blood pressure 122/71. HEENT: Atraumatic, normocephalic. Oral mucosa is moist NECK: Supple. CARDIOVASCULAR: S1, S2 heard. Rate and rhythm regular. RESPIRATORY: Clear to auscultation. GASTROINTESTINAL: Abdomen is soft. MUSCULOSKELETAL: No tenderness. No edema. DERMATOLOGIC: No skin rash. NEUROLOGIC: Alert and awake and oriented X3. No focal neurologic deficits. Moving all the extremities. PSYCHIATRIC: Mood and affect normal. LABORATORY DATA: Potassium is 3.8, BUN is 6, and creatinine is 1.08. ASSESSMENT AND PLAN: 1. Acute kidney injury, much better. 2. Chronic kidney disease, stage 3 with history of transplant. 3. Hypomagnesemia. 4. Hypocalcemia. 5. Edema, controlled. 6. History of hypertension. 7. Anemia. Labs are stable. Creatinine back to normal. We will sign off. Follow up with Dr. Becerra in 1 to 2 weeks. Job ID: [id number]
--- NOTE | 2019-08-05 09:09 | DIS ---
DATE OF ADMISSION: 08/03/2019 DATE OF DISCHARGE: 08/04/2019 DISCHARGE DIAGNOSES: 1. Generalized weakness. 2. Hypomagnesemia. 3. Acute prolonged QT. 4. Large pericardial effusion. 5. Acute kidney injury. 6. History of renal transplant. HOSPITAL COURSE: The patient is a 69-year-old female, who initially presented to the hospital with generalized weakness and decreased appetite. The patient also had elevated creatinine, which was above her baseline. She was given some IV hydration. Nephrology was consulted. I went ahead and did an echocardiogram, which indicated an EF of 55% to 60% and had a very large circumferential pericardial effusion. At this time, CV Surgery was consulted. However, the patient has had this before and she was hemodynamically stable. Since there was no cardiac tamponade, the patient did not undergo a pericardiocentesis and will be discharged home. The patient's appetite has improved. I did speak with the daughter and encourage her to feed her whatever she wanted to eat, especially since she does not eat very much. HOME MEDICATIONS: Her home medications will be: 1. Metoprolol 50 mg b.i.d. 2. Magnesium 800 mg q.h.s. 3. Prednisone 5 mg daily. 4. Glipizide 20 mg daily. 5. CellCept 500 mg b.i.d. 6. Aspirin 81 mg daily. 7. Tacrolimus 5 mg b.i.d. 8. Pepcid 20 mg daily. 9. Sensipar 90 mg daily. PHYSICAL EXAMINATION: VITAL SIGNS: Temperature of 97.9, heart rate 76, respirations 18, O2 saturation 97% on room air, blood pressure 119/70. GENERAL: She is awake, alert, and oriented x3. Does not appear in any distress. CV: S1 and S2 present. No murmurs, rubs, or gallops. ABDOMEN: Soft and nontender. Bowel sounds are present x2. EXTREMITIES: No edema. Pedal pulses are present x2. DISPOSITION: Again, she will be discharged home. FOLLOWUP: She will follow up with Renal and also with her primary. Job ID: [id number]
[2019-08-05 19:08] LABS: Tacrolimus 11.6 ng/mL (2.0-20.0)
--- NOTE | 2019-08-05 23:46 | EKG ---
Test Reason : Blood Pressure : / mmHG Vent. Rate : 068 BPM Atrial Rate : 068 BPM P-R Int : 124 ms QRS Dur : 070 ms QT Int : 502 ms P-R-T Axes : 009 041 077 degrees QTc Int : 533 ms Normal sinus rhythm Nonspecific T wave abnormality Prolonged QT Abnormal ECG Confirmed by DANN ETIENNE M.D. ([id number]) on 08/05/2019 11:45:37 PM Referred By: TRISTA Confirmed By:DANN ETIENNE M.D.
== END 2019-08-04 17:55 | disposition home or self-care (01) | DRG 699 ==
LOC: ERS 13:46 → 2NO 17:37 → INTOOBSV 17:37 → OBSVTOIN 08-03 16:00
PROVIDERS: ADMIT Internal Medicine; ATTEND Internal Medicine
DX: T86.19 Other complication of kidney transplant (principal); I31.3 Pericardial effusion (noninflammatory); N17.9 Acute kidney failure, unspecified; E03.9 Hypothyroidism, unspecified; E78.00 Pure hypercholesterolemia, unspecified; E11.65 Type 2 diabetes mellitus with hyperglycemia; I45.81 Long QT syndrome; Y83.0 Surgical operation with transplant of whole organ as the cause of abnormal reaction of the patient, or of later complication, without mention of misadventure at the time of the procedure; E78.5 Hyperlipidemia, unspecified; E83.42 Hypomagnesemia; E83.51 Hypocalcemia; E87.8 Other disorders of electrolyte and fluid balance, not elsewhere classified; E11.22 Type 2 diabetes mellitus with diabetic chronic kidney disease; E63.1 Imbalance of constituents of food intake; I12.9 Hypertensive chronic kidney disease with stage 1 through stage 4 chronic kidney disease, or unspecified chronic kidney disease; N28.1 Cyst of kidney, acquired; N18.3 Chronic kidney disease, stage 3 (moderate); Z90.710 Acquired absence of both cervix and uterus; Z79.84 Long term (current) use of oral hypoglycemic drugs; Z79.82 Long term (current) use of aspirin; Z79.52 Long term (current) use of systemic steroids; Z79.899 Other long term (current) drug therapy
CPT/HCPCS: 36415; 36416; 71045; 80048; 80053; 80197; 81001; 82306; 82550; 82728; 83540; 83550; 83735; 83880; 83970; 84100; 84443; 84484; 85025; 85610; 85730; 87086; 93005; 93010; 93306; 96365; J1650; J3475; J3480; J7507; J7512; J7517

== ENCOUNTER 2019-12-23 17:13 | Emergency (ER) | payer MEDICARE ==
[2019-12-23 17:55] LABS: #Lymphocytes 0.6 thou/uL (1.20-3.40); #Monocytes 0.5 thou/uL (0.11-0.59); %Eosinophils 0.5 % (0.0-10.0); %Lymphocytes 10.1 % (21.0-51.0); %Monocytes 8.2 % (0.0-10.0); %Neutrophils 81.2 % (42.0-75.0); Hemoglobin 11.8 g/dL (12.0-16.0); Mean Corpuscular HGB CONC 33.6 g/dL (32.0-36.0); Mean Corpuscular Hemoglobin 29.9 pg (27.0-31.0); Mean Corpuscular Volume 88.8 fL (78.0-98.0); Mean Platelet Volume 8.6 fL (7.4-10.4); Platelet Count 134 thou/uL (130-400); RBC Distribution Width 12.3 % (11.5-14.5); Red Blood Cell (RBC) Count 3.95 mill/uL (4.20-5.40); White Blood Cell (WBC) Count 6.2 thou/uL (4.8-10.8)
[2019-12-23 18:04] LABS: Base Excess-Venous 5.6 mmol/L (-2.0 to 3.0); CO2 Tension (PvCO2) 47.9 mmHg (40.0-50.0); Chloride 97 mmol/L (98-107); Glucose 323 mg/dL (80-115); Hemoglobin - Calc 11.8 g/dL (12.0-16.0); Lactate 2.28 mmol/L (0.50-2.20); Potassium 3.8 mmol/L (3.5-5.1); Sodium 139 mmol/L (138-145); T. Carbon Dioxide 32.5 mmol/L (22.0-28.0)
--- NOTE | 2019-12-23 18:05 | CT ---
CT Head without IV contrast COMPARISON: 02/10/2003 and 439 10/23/2017. HISTORY: Level 2 stroke alert. Altered mental status. Weakness. TECHNIQUE: Axial CT imaging at 5 mm intervals from vertex through skull base without contrast FINDINGS: There is no evidence of an acute infarction, hemorrhage, mass effect, or midline shift. There is decr eased attenuation seen in the periventricular white matter which is nonspecific but likely attributable to chronic small vessel ischemic changes. There is mild cerebral and cerebellar volume l oss. The ventricular system is mildly dilated and slightly out of proportion to the degree of sulcal atrophy, this is probably related to greater central cerebral atrophy. Volume loss has certain ly progressed since CT exam in 2002. Minimal mucosal thickening is seen in a few ethmoidal air cells. Mastoid air cells are clear. Osseous structures appear intact. IMPRESSION: 1. No acute intracranial abnormality demonstrated. 2. Mild chronic small vessel ischemic changes. 3. Cerebral and cerebellar volume loss. Ventricular system is mildly dilated and out of proportion to the degree of sulcal atrophy, but this is probably attributable to greater degree of central cerebral atrophy. 4. Above findings discussed with Dr. Adina Shetty's nurse, in the emergency department on 12/23/19 20 at 1759 hours.
[2019-12-23 18:22] LABS: ALT (SGPT) 14 U/L (8-55); AST (SGOT) 10 U/L (5-34); Albumin 4.1 g/dL (3.4-4.8); Alkaline Phosphatase 87 U/L (40-110); Anion Gap 13 mmol/L (10-20); BUN (Urea Nitrogen) 17 mg/dL (9.8-20.1); Bilirubin, Total 0.9 mg/dL (0.2-1.2); CK (CPK) 17 U/L (29-168); Calc. Creatinine Clearance 0 mL/min (70-130); Calcium 11.6 mg/dL (7.8-10.44); Carbon Dioxide 31 mmol/L (23-31); Chloride 98 mmol/L (98-107); Estimated GFR-MDRD 70; Globulin 2.9 g/dL (2.4-3.5); Glucose 306 mg/dL (80-115); Magnesium 1.5 mg/dL (1.6-2.6); Potassium 3.9 mmol/L (3.5-5.1); Sodium 138 mmol/L (136-145)
--- NOTE | 2019-12-23 19:06 | RAD ---
EXAM: CHEST ONE VIEW HISTORY: Altered mental status and weakness. Lethargic. COMPARISON: 08/02/2019 FINDINGS: Cardiac silhouette is magnified by projection but does appear mildly enlarged. Pulmonary vasculature is within normal limits. The lungs are clear. Thoracic aorta is ectatic and partially calcified. Degenerative changes are seen in the spine, and there is right convex curvature of the thoracic spine . Surgical clips overlie the epigastric region. IMPRESSION: 1. No acute cardiopulmonary process. 2. Mild cardiomegaly.
[2019-12-23 20:41] LABS: Lactic Acid 1.1 mmol/L (0.5-2.2)
[2019-12-23 23:45] LABS: Bacteria/HPF None Seen HPF (None Seen); Bilirubin Negative (Negative); Blood, Urine Trace (Negative); Clarity Clear (Clear); Glucose, Urine (Dipstick) Normal (Negative); Leukocyte Negative Leu/uL (Negative); Nitrite Negative (Negative); Protein, Urine (Dipstick) Negative (Neg-Trace); RBC/HPF 0-3 HPF (0-3); Squamous Epithelial None Seen HPF (0-3); Urobilinogen Normal mg/dL (Less than 2); WBC/HPF 0-3 HPF (0-3)
== END 2019-12-24 00:06 | disposition home or self-care (01) ==
LOC: ERS 17:13
DX: E11.65 Type 2 diabetes mellitus with hyperglycemia (principal); E03.9 Hypothyroidism, unspecified; I10 Essential (primary) hypertension; E05.90 Thyrotoxicosis, unspecified without thyrotoxic crisis or storm; Z79.899 Other long term (current) drug therapy; Z79.82 Long term (current) use of aspirin
CPT/HCPCS: 36415; 36416; 51701; 70450; 71045; 80053; 81003; 81015; 82140; 82330; 82550; 82803; 83605; 83735; 84443; 84484; 85025; 93005; A4353

== ENCOUNTER 2020-03-10 02:22 | Emergency (ER) | payer MEDICARE ==
[2020-03-10 03:30] LABS: #Eosinphils 0.1 thou/uL (0.0-0.7); #Lymphocytes 1.1 thou/uL (1.20-3.40); #Monocytes 0.5 thou/uL (0.11-0.59); #Neutrophils 4.8 thou/uL (1.40-6.50); %Basophils 0.3 % (0.0-1.0); %Eosinophils 0.9 % (0.0-10.0); %Lymphocytes 16.6 % (21.0-51.0); %Monocytes 8.3 % (0.0-10.0); Hemoglobin 11.7 g/dL (12.0-16.0); Mean Corpuscular HGB CONC 31.6 g/dL (32.0-36.0); Mean Corpuscular Hemoglobin 29.4 pg (27.0-31.0); Mean Corpuscular Volume 93.1 fL (78.0-98.0); Mean Platelet Volume 8.9 fL (7.4-10.4); Platelet Count 131 thou/uL (130-400); RBC Distribution Width 12.6 % (11.5-14.5); Red Blood Cell (RBC) Count 3.96 mill/uL (4.20-5.40); White Blood Cell (WBC) Count 6.5 thou/uL (4.8-10.8)
[2020-03-10 03:51] LABS: ALT (SGPT) 12 U/L (8-55); AST (SGOT) 14 U/L (5-34); Albumin 3.7 g/dL (3.4-4.8); Alkaline Phosphatase 74 U/L (40-110); Anion Gap 12 mmol/L (10-20); BUN (Urea Nitrogen) 14 mg/dL (9.8-20.1); Bilirubin, Total 0.5 mg/dL (0.2-1.2); Calc. Creatinine Clearance 0 mL/min (70-130); Calcium 8.8 mg/dL (7.8-10.44); Carbon Dioxide 27 mmol/L (23-31); Chloride 108 mmol/L (98-107); Estimated GFR-MDRD 81; Globulin 2.5 g/dL (2.4-3.5); Glucose 111 mg/dL (80-115); Protein, Total 6.2 g/dL (6.0-8.3); Sodium 144 mmol/L (136-145)
== END 2020-03-10 05:01 | disposition home or self-care (01) ==
LOC: ERS 02:22
DX: E16.2 Hypoglycemia, unspecified (principal); E03.9 Hypothyroidism, unspecified; I10 Essential (primary) hypertension; Z79.899 Other long term (current) drug therapy; Z79.82 Long term (current) use of aspirin
CPT/HCPCS: 36415; 36416; 80053; 85025; 99285

== ENCOUNTER 2020-03-10 20:47 | Emergency (ER) | payer MEDICARE ==
[2020-03-10 21:51] LABS: #Lymphocytes 0.8 thou/uL (1.20-3.40); #Monocytes 0.4 thou/uL (0.11-0.59); #Neutrophils 3.3 thou/uL (1.40-6.50); %Basophils 0.3 % (0.0-1.0); %Eosinophils 0.7 % (0.0-10.0); %Lymphocytes 17.4 % (21.0-51.0); %Monocytes 9.6 % (0.0-10.0); Hemoglobin 11.5 g/dL (12.0-16.0); Mean Corpuscular Hemoglobin 29.5 pg (27.0-31.0); Mean Corpuscular Volume 92.1 fL (78.0-98.0); Mean Platelet Volume 8.7 fL (7.4-10.4); Platelet Count 129 thou/uL (130-400); RBC Distribution Width 12.5 % (11.5-14.5); White Blood Cell (WBC) Count 4.6 thou/uL (4.8-10.8)
[2020-03-10 22:08] LABS: ALT (SGPT) 15 U/L (8-55); AST (SGOT) 14 U/L (5-34); Albumin 3.9 g/dL (3.4-4.8); Alkaline Phosphatase 85 U/L (40-110); Anion Gap 14 mmol/L (10-20); BUN (Urea Nitrogen) 11 mg/dL (9.8-20.1); Bilirubin, Total 0.5 mg/dL (0.2-1.2); Calc. Creatinine Clearance 0 mL/min (70-130); Calcium 9.1 mg/dL (7.8-10.44); Carbon Dioxide 29 mmol/L (23-31); Chloride 101 mmol/L (98-107); Estimated GFR-MDRD 82; Globulin 2.7 g/dL (2.4-3.5); Glucose 155 mg/dL (80-115); Potassium 3.5 mmol/L (3.5-5.1); Protein, Total 6.6 g/dL (6.0-8.3); Sodium 140 mmol/L (136-145)
== END 2020-03-10 23:30 | disposition home or self-care (01) ==
LOC: ERS 20:47
DX: E11.649 Type 2 diabetes mellitus with hypoglycemia without coma (principal); D69.6 Thrombocytopenia, unspecified; E03.9 Hypothyroidism, unspecified; I10 Essential (primary) hypertension; Q61.3 Polycystic kidney, unspecified; N28.9 Disorder of kidney and ureter, unspecified; Z94.0 Kidney transplant status; Z79.4 Long term (current) use of insulin; Z79.82 Long term (current) use of aspirin; Z79.899 Other long term (current) drug therapy; Z79.52 Long term (current) use of systemic steroids
CPT/HCPCS: 36415; 36416; 80053; 85025; 99284; 99285

== ENCOUNTER 2020-12-05 02:14 | Inpatient (IN) | payer MEDICARE ==
[2020-12-05 02:51] LABS: #Basophils 0.1 thou/uL (0.0-0.2); #Lymphocytes 0.9 thou/uL (1.20-3.40); #Monocytes 0.6 thou/uL (0.11-0.59); #Neutrophils 5.4 thou/uL (1.40-6.50); %Eosinophils 0.1 % (0.0-10.0); %Lymphocytes 12.7 % (21.0-51.0); %Monocytes 8.5 % (0.0-10.0); %Neutrophils 77.7 % (42.0-75.0); Hemoglobin 13.6 g/dL (12.0-16.0); Mean Corpuscular HGB CONC 31.6 g/dL (32.0-36.0); Mean Corpuscular Hemoglobin 28.7 pg (27.0-31.0); Mean Corpuscular Volume 90.9 fL (78.0-98.0); Mean Platelet Volume 10.3 fL (7.4-10.4); Platelet Count 125 thou/uL (130-400); Red Blood Cell (RBC) Count 4.75 mill/uL (4.20-5.40)
[2020-12-05 03:17] LABS: Bacteria/HPF None Seen HPF (None Seen); Bilirubin Negative (Negative); Blood, Urine 1+ (Negative); Clarity Clear (Clear); Glucose, Urine (Dipstick) 150 mg/dL (Negative); Ketone, Urine Negative (Negative); Leukocyte Negative Leu/uL (Negative); Nitrite Negative (Negative); Protein, Urine (Dipstick) 20 mg/dL (Neg-Trace); Specific Gravity, Urine 1.017 (1.002-1.036); Squamous Epithelial None Seen HPF (0-3); Urobilinogen Normal mg/dL (Less than 2); WBC/HPF 0-3 HPF (0-3)
[2020-12-05 03:23] LABS: ALT (SGPT) 15 U/L (8-55); AST (SGOT) 15 U/L (5-34); Albumin 4.1 g/dL (3.4-4.8); Alkaline Phosphatase 99 U/L (40-110); Anion Gap 16 mmol/L (10-20); BUN (Urea Nitrogen) 35 mg/dL (9.8-20.1); Bilirubin, Total 1.2 mg/dL (0.2-1.2); Calc. Creatinine Clearance 0 mL/min (70-130); Carbon Dioxide 29 mmol/L (23-31); Chloride 107 mmol/L (98-107); Globulin 3.7 g/dL (2.4-3.5); Glucose 429 mg/dL (80-115); Potassium 4.4 mmol/L (3.5-5.1); Protein, Total 7.8 g/dL (5.8-8.1); Sodium 148 mmol/L (136-145)
[2020-12-05 03:44] LABS: CKMB 1.1 ng/mL (0-6.6)
[2020-12-05 05:34] LABS: SARS-CoV-2 NAA Rapid Test Not Detected (NotDetected)
[2020-12-05 06:49] LABS: Troponin I 0.025 ng/mL (< 0.028)
--- NOTE | 2020-12-05 07:39 | RAD ---
EXAM: Single view of the chest HISTORY: Weakness and altered mental status COMPARISON: 12/23/2019 FINDINGS: Single view of the chest shows a normal sized cardiomediastinal silhouette. Atheroscleroti c calcifications are seen in the aorta. There is no evidence of consolidation, mass, or pleural effusion. Degenerative changes are seen in the spine. Surgical clips are seen in the upper abdomen. IMPRESSION: No evidence of acute cardiopulmonary disease
--- NOTE | 2020-12-05 08:57 | PDOC.HHP ---
Hospitalist HPI Weakness and muffled speech History of Present Illness: This is a 70-year-old female with a history of previous renal transplant on immunosuppressants, also has dementia, who lives with her daughter and is normally ambulatory and communicative. Daughter reports that since last patient has been increasingly weak. She has been muttering under her breath rather than speaking clearly. No other specific or focal symptoms. Daughter reports that patient has dementia with significant progression over the last year. She is usually alert and oriented to person and place only. She has had markedly decreased appetite over the last year. Any sort of solid food she will chew with and spit back out of her mouth. She has been mostly eating things like mashed potatoes and then taking a couple of Ensure drinks per day. She has had some significant weight loss over the last year. No improvement with mirtazapine given by her primary care physician. Daughter states that the patient was adamant she would never want a feeding tube or other life support sort of interventions. ED Course: In the emergency room the patient was found to have a low-grade temperature of 100.0. Her exam was otherwise unremarkable. Her lab work did show a mild hyper natremia a mild creatinine elevation and a significantly elevated glucose in the 400s. She did have a mildly indeterminate troponin that resolved on recheck. She reportedly had a negative CT of the brain. She is being observed in the hospital for further work-up. Allergies/Adverse Reactions: Allergy/AdvReac Type Severity Reaction Status Date / Time No Known Drug Allergies Allergy Verified 03/11/18 20:32 Home Medications: Medication Instructions Recorded Confirmed Type Cinacalcet HCl [Sensipar] 90 mg PO DAILY 03/11/18 12/06/20 History Famotidine [Pepcid] 20 mg PO DAILY 03/11/18 12/06/20 History Mycophenolate [Cellcept] 500 mg PO BID 03/11/18 12/06/20 History Tacrolimus [Prograf] 5 mg PO BID 03/11/18 12/06/20 History glipiZIDE [Glucotrol XL] 5 mg PO BID 03/11/18 12/06/20 History predniSONE [Prednisone] 5 mg PO DAILY 03/11/18 12/06/20 History Magnesium Oxide 400 mg PO QPM 08/03/19 12/06/20 History Aspirin [Ecotrin] 81 mg PO DAILY 12/06/20 12/06/20 History Cholecalciferol (Vitamin D3) 50 ml PO DAILY 12/06/20 12/06/20 History [Vitamin D] Levothyroxine Sodium 100 mcg PO DAILY 12/06/20 12/06/20 History [Levothyroxine] Metoprolol Tartrate [Lopressor] 50 mg PO BID 12/06/20 12/06/20 History Mirtazapine 30 mg PO DAILY 12/06/20 12/06/20 History Past History: PMHx: 1. Diabetes mellitus type 2 not on insulin 2. Hypertension 3. Hypothyroidism 4. Polycystic kidney disease with renal transplant 5. Chronic immunosuppressants 6. Secondary hyperparathyroidism 7. Gastroesophageal reflux disease 8. Hypercholesterolemia 9. Dementianormally alert and oriented x2 PSHx: 1. Hysterectomy in 1999 2. Left upper extremity dialysis shunt in 2011 3. Right renal transplant in 2012 at [facility] in [place] FHx: No strong family history of premature coronary artery disease, stroke, or cancer. Social: Patient lives with her daughter. No history of tobacco, alcohol, or illicit drug use. She is a do not attempt resuscitation. Her daughter is her medical power of deputy county attorney. Patient has stated she would never want a feeding tube. Hospitalist HPI ROS ROS unobtainable: due to mental status (Daughter denies any fever, nausea, vomiting, diarrhea, rash, cough, difficulty breathing, or any other symptoms that she is noted besides the HPI.) Hospitalist Exam General Appearance: NAD, awake alert Eye: PERRL, anicteric sclera ENT: normocephalic atraumatic, no oropharyngeal lesions, dry oral mucosa Neck: supple, symmetric, no JVD, no thyromegaly, no lymphadenopathy Heart: RRR, no murmur, no gallops, no rubs, normal peripheral pulses Respiratory: CTAB, no wheezes, no rales, no ronchi Gastrointestinal: soft, non-tender, non-distended, normal bowel sounds, no palpable masses, no hepatomegaly, no splenomegaly, no guarding, no rigidity Extremities: no cyanosis, no clubbing, no edema Skin: normal turgor, no lesions, no rashes Neurological: cranial nerve grossly intact, no focal deficits Neurological - other findings: Weak but clear voice, stronger now after IV fluids Musculoskeletal: normal tone, normal strength, no muscle wasting Psychiatric: normal affect, normal behavior, oriented to person. negative: oriented to place (No she is in [place] but not that she is in the hospital), oriented to time (Does not know the year) Hospitalist Results Result Diagrams: 12/05/20 02:43 12/05/20 02:43 Lab results: Laboratory Last Values WBC 7.0 thou/uL (4.8-10.8) 12/05/20 02:43 RBC 4.75 mill/uL (4.20-5.40) 12/05/20 02:43 Hgb 13.6 g/dL (12.0-16.0) 12/05/20 02:43 Hct 43.1 % (36.0-47.0) 12/05/20 02:43 MCV 90.9 fL (78.0-98.0) 12/05/20 02:43 MCH 28.7 pg (27.0-31.0) 12/05/20 02:43 MCHC 31.6 g/dL (32.0-36.0) L 12/05/20 02:43 RDW 12.0 % (11.5-14.5) 12/05/20 02:43 Plt Count 125 thou/uL (130-400) L 12/05/20 02:43 MPV 10.3 fL (7.4-10.4) 12/05/20 02:43 Neutrophils % 77.7 % (42.0-75.0) H 12/05/20 02:43 Lymphocytes % 12.7 % (21.0-51.0) L 12/05/20 02:43 Monocytes % 8.5 % (0.0-10.0) 12/05/20 02:43 Eosinophils % 0.1 % (0.0-10.0) 12/05/20 02:43 Basophils % 1.0 % (0.0-1.0) 12/05/20 02:43 Neutrophils # 5.4 thou/uL (1.40-6.50) 12/05/20 02:43 Lymphocytes # 0.9 thou/uL (1.20-3.40) L 12/05/20 02:43 Monocytes # 0.6 thou/uL (0.11-0.59) H 12/05/20 02:43 Eosinophils # 0.0 thou/uL (0.0-0.7) 12/05/20 02:43 Basophils # 0.1 thou/uL (0.0-0.2) 12/05/20 02:43 Sodium 148 mmol/L (136-145) H 12/05/20 02:43 Potassium 4.4 mmol/L (3.5-5.1) 12/05/20 02:43 Chloride 107 mmol/L (98-107) 12/05/20 02:43 Carbon Dioxide 29 mmol/L (23-31) 12/05/20 02:43 Anion Gap 16 mmol/L (10-20) 12/05/20 02:43 BUN 35 mg/dL (9.8-20.1) H 12/05/20 02:43 Creatinine 1.19 mg/dL (0.6-1.1) H 12/05/20 02:43 Estimated GFR (MDRD) 54 12/05/20 02:43 Glucose 429 mg/dL (80-115) H 12/05/20 02:43 Calcium 12.0 mg/dL (7.8-10.44) H 12/05/20 02:43 Total Bilirubin 1.2 mg/dL (0.2-1.2) 12/05/20 02:43 AST 15 U/L (5-34) 12/05/20 02:43 ALT 15 U/L (8-55) 12/05/20 02:43 Alkaline Phosphatase 99 U/L (40-110) 12/05/20 02:43 CK-MB (CK-2) 1.1 ng/mL (0-6.6) 12/05/20 02:43 Troponin I 0.025 ng/mL (< 0.028) 12/05/20 06:03 Serum Total Protein 7.8 g/dL (5.8-8.1) 12/05/20 02:43 Albumin 4.1 g/dL (3.4-4.8) 12/05/20 02:43 Globulin 3.7 g/dL (2.4-3.5) H 12/05/20 02:43 Albumin/Globulin Ratio 1.1 g/dL (1.2-2.2) L 12/05/20 02:43 Urine Color Light-Yellow (Yellow) 12/05/20 02:49 Urine Clarity Clear (Clear) 12/05/20 02:49 Urine pH 6.0 (5.0-9.0) 12/05/20 02:49 Ur Specific [place] 1.017 (1.002-1.036) 12/05/20 02:49 Urine Protein 20 mg/dL (Neg-Trace) 12/05/20 02:49 Urine Glucose (UA) 150 mg/dL (Negative) A 12/05/20 02:49 Urine Ketones Negative mg/dL (Negative) 12/05/20 02:49 Urine Blood 1+ (Negative) A 12/05/20 02:49 Urine Nitrite Negative (Negative) 12/05/20 02:49 Urine Bilirubin Negative (Negative) 12/05/20 02:49 Urine Urobilinogen Normal mg/dL (Less than 2) 02 02:49 Ur Leukocyte Esterase Negative [place]/uL (Negative) 12/05/20 02:49 Urine RBC 4-6 HPF (0-3) A 12/05/20 02:49 Urine WBC 0-3 HPF (0-3) 12/05/20 02:49 Ur Squamous Epith Cells None Seen HPF (0-3) 12/05/20 02:49 Urine Bacteria None Seen HPF (None Seen) 12/05/20 02:49 Hyaline Casts 0-3 LPF (0-3) 12/05/20 02:49 Influenza A RNA INAAT Not Detected (NotDetected) 12/05/20 02:45 Influenza B RNA INAAT Not Detected (NotDetected) 12/05/20 02:45 SARS-CoV-2 Rap RNA(RT-PCR) Not Detected (NotDetected) 12/05/20 02:45 Chest x-ray Status: image reviewed by me, report reviewed by me Additional Comments: EXAM: Single view of the chest HISTORY: Weakness and altered mental status COMPARISON: 12/23/2019 FINDINGS: Single view of the chest shows a normal sized cardiomediastinal silh ouette. Atherosclerotic calcifications are seen in the aorta. There is no evidence of consolidation, mass, or pleural effusion. Degenerative changes are seen in the spine. Surgical clips are seen in the upper abdomen. IMPRESSION: No evidence of acute cardiopulmonary disease CT scan - head Status: image reviewed by me (Report pending. No obvious intracranial abnor mality per my review of the films.) EKG Status: image reviewed by me, report reviewed by me Additional Comments: 12 lead EKG shows normal sinus rhythm, Rate (beats per minute): 82, Interpretation: normal EKG, Conduction normal, ST segments normal, T waves normal. Hospitalist H&P A/P Plan: Generalized weakness and weak speech We will give IV fluids Check blood cultures due to the borderline temperature. Urinalysis negative for infection and chest x-ray negative for pneumonia. PT and OT evaluation. This is possibly related to progression of her dementia. Also possibility of Michelle in her throat and esophagus while on immunosuppressants. Speech therapy evaluation and is safe then will start her on nystatin. Acute renal failure We will recheck creatinine after IV fluids History of renal transplant on immunosuppressants We will resume patient's home medications Diabetes mellitus type 2 with severe hyperglycemia We will check fingerstick blood sugars before every meal and at bedtime and give insulin sliding scale Diabetic diet Resume home oral hypoglycemics Hypothyroidism Resume levothyroxine Hypertension We will resume home medications DVT prophylaxis: Lovenox subcu and SCDs while in bed GI prophylaxis and history of gastroesophageal reflux disease: Pepcid twice a day CODE STATUS: Patient is a do not attempt resuscitation. Her medical decision- maker will be her daughter. I will consult palliative care to discuss with daughter about the patient's dementia and decline in possibilities going forward if she is not able to maintain adequate oral intake.
[2020-12-05] MEDS ORDERED: Acetaminophen 325 MG TAB PO PRN (09:10)
[2020-12-05] MEDS ORDERED: Senokot S 8.6-50 MG TAB PO PRN (09:10)
[2020-12-05] MEDS ORDERED: Ondansetron PF 4 MG/2 ML Vial IVP PRN (09:10)
[2020-12-05] MEDS ORDERED: Dextrose 5% in Water 1,000 ML IV PRN (09:10)
[2020-12-05] MEDS ORDERED: Guaifenesin DM 100-10/5 ML UDCUP PO PRN (09:10)
[2020-12-05] MEDS ORDERED: Ondansetron ODT 4 MG TAB PO PRN (09:10)
[2020-12-05] MEDS ORDERED: Dextrose 50% Abboject 50 ML SYRINGE SLOW IVP PRN (09:10)
[2020-12-05] MEDS ORDERED: Acetaminophen 650 MG Suppository PR PRN (09:10)
--- NOTE | 2020-12-05 09:47 | CT ---
PRELIMINARY REPORT/[facility]/EMERGENCY AFTER HOURS PROCEDURE: EXAM: CT Head Without Intravenous Contrast. CLINICAL HISTORY: 70-year-old female patient presents to the ER with complaint of generalized weakness, muffled speech since TECHNIQUE: Axial computed tomography images of the head/brain without intravenous contrast. COMPARISON: None provided. FINDINGS: BRAIN: No acute intraparenchymal hemorrhage. No mass lesion. No CT evidence for acute territorial infarct. N o midline shift or extra-axial collection. Mild age-related atrophy and periventricular deep white m atter small vessel change. VENTRICLES: No hydrocephalus. ORBITS: The orbits are unremarkable. SINUSES AND MASTOIDS: The paranasal sinuses and mastoid air cells are clear. SOFT TISSUES: No significant facial or scalp soft tissue swelling evident. No radiopaque foreign body is seen. BONES: No acute skull fracture. IMPRESSION: No acute intracranial abnormality. There is mild age-related atrophy. ELECTRONICALLY SIGNED BY: Ximena Villasenor DO Dec 05, 2020 3:16:30 AM GUEST EXPERIENCE MANAGER This report is intended for review by the ordering physician only, in accordance of law. If you recei ve this report in error, please call [facility] at [phone]. FINAL REPORT EMERGENCY AFTER HOURS CT BRAIN WITHOUT CONTRAST: I agree with the preliminary report given by [facility]. POS: YAMILE
[2020-12-05] MEDS: Sodium Chloride 0.9% 1,000 ML IV SCH (10:00)
[2020-12-05] MEDS: Nystatin 500,000 UNITS/5 ML UDCUP SSW SCH ×2 (16:35→17:07)
[2020-12-06] MEDS: Tacrolimus 1 MG CAP PO SCH ×3 (00:05→21:07)
[2020-12-06] MEDS: Metoprolol Tartrate 50 MG TAB PO SCH ×3 (00:05→21:08)
[2020-12-06] MEDS: Famotidine 20 MG TAB PO SCH ×2 (00:05→21:08)
[2020-12-06] MEDS: Nystatin 500,000 UNITS/5 ML UDCUP SSW SCH ×5 (00:05→21:08)
[2020-12-06] MEDS: Mycophenolate 250 MG CAP PO SCH ×3 (00:05→21:07)
[2020-12-06] MEDS: Sodium Chloride 0.9% 1,000 ML IV SCH ×2 (00:06→04:46)
--- NOTE | 2020-12-06 12:15 | PDOC.HOSPP ---
- Subjective Encounter Date: 12/06/20 Encounter Time: 13:00 Subjective: No events overnight. Patient was able to get up with minimal assistance but has not walked yet. Daughter is at bedside. - Objective Vital Signs & Weight: Vital Signs (12 hours) Temp Pulse Resp BP Pulse Ox 12/06/20 04:33 98.4 F 81 18 137/66 99 I&O: 12/05/20 12/06/20 12/07/20 06:59 06:59 06:59 Intake Total 1240 Output Total 240 Balance 1000 Result Diagrams: 12/05/20 02:43 12/06/20 11:43 Additional Labs: Accuchecks 12/06/20 12/05/20 05:49 12:48 POC Glucose 222 H 308 H Hospitalist ROS - Review of Systems ROS unobtainable: due to mental status - Medication Medications: Active Medications Generic Name Dose Route Start Last Admin Trade Name Freq PRN Reason Stop Dose Admin Famotidine 20 mg 12/05/20 21:00 12/06/20 00:05 Famotidine 20 Mg Tab PO 20 mg Q24HR GWEN Administration Sodium Chloride 1,000 mls @ 100 mls/hr 12/05/20 09:15 12/06/20 04:46 Normal Saline 0.9% IV 1,000 mls .Q10H GWEN Administration Metoprolol Tartrate 50 mg 12/05/20 21:00 12/06/20 00:05 Metoprolol Tartrate 50 Mg Tab PO 50 mg BID GWEN Administration Mycophenolate Mofetil 500 mg 12/05/20 21:00 12/06/20 00:05 Mycophenolate 250 Mg Cap PO 500 mg BID GWEN Administration Nystatin 500,000 units 12/05/20 13:00 12/06/20 11:01 Nystatin 500,000 Units/5 Ml Udcup SSW 500,000 units QID GWEN Administration Tacrolimus 5 mg 12/05/20 21:00 12/06/20 00:05 Tacrolimus 1 Mg Cap PO 5 mg BID GWEN Administration Hospitalist Exam Vitals: Vital Signs (12 hours) Temp Pulse Resp BP Pulse Ox 12/06/20 04:33 98.4 F 81 18 137/66 99 General Appearance: NAD, awake alert ENT: moist mucosa Heart: RRR, no murmur, no gallops, no rubs Respiratory: CTAB, no wheezes, no rales, no ronchi Gastrointestinal: soft, non-tender, non-distended, normal bowel sounds Psychiatric: normal affect, normal behavior, oriented to person Hosp A/P - Plan Generalized weakness and weak speech We will give IV fluids Check blood cultures due to the borderline temperature. Urinalysis negative for infection and chest x-ray negative for pneumonia. PT and OT evaluation. This is possibly related to progression of her dementia. Also possibility of Michelle in her throat and esophagus while on immunosuppressants. Starting n ystatin. Speech therapy evaluation done and patient put on pured solids with nectar thick liquids. Acute renal failure We will recheck creatinine after IV fluidscreatinine normalized this morning Hypernatremia Persistent this morning, will change IV fluids to half-normal saline We will need to convert inpatient for 1 more day of IV fluid administration History of renal transplant on immunosuppressants We will resume patient's home medications Diabetes mellitus type 2 with severe hyperglycemia We will check fingerstick blood sugars before every meal and at bedtime and give insulin sliding scale Liberalized to regular diet to encourage p.o. intake Resume home oral hypoglycemics Hypothyroidism Resume levothyroxine Hypertension We will resume home medications DVT prophylaxis: Lovenox subcu and SCDs while in bed GI prophylaxis and history of gastroesophageal reflux disease: Pepcid daily CODE STATUS: Patient is a do not attempt resuscitation. Her medical decision- maker will be her daughter. I have consulted palliative care to discuss with daughter about the patient's dementia and decline in possibilities going forward if she is not able to maintain adequate oral intake.
[2020-12-06 12:31] LABS: Anion Gap 16 mmol/L (10-20); BUN (Urea Nitrogen) 20 mg/dL (9.8-20.1); Calc. Creatinine Clearance 0 mL/min (70-130); Calcium 10.2 mg/dL (7.8-10.44); Carbon Dioxide 22 mmol/L (23-31); Chloride 114 mmol/L (98-107); Glucose 270 mg/dL (80-115); Potassium 3.9 mmol/L (3.5-5.1); Sodium 148 mmol/L (136-145)
[2020-12-06] MEDS: Sodium Chloride 0.45% 1,000 ML IV SCH (13:30)
[2020-12-06] MEDS: Cinacalcet HCl 30 MG TAB PO SCH (14:04)
[2020-12-06] MEDS: Magnesium Oxide 400 MG TAB PO SCH ×2 (14:04→21:08)
[2020-12-06] MEDS: predniSONE 5 MG TAB PO SCH (14:04)
[2020-12-06] MEDS: Aspirin 81 mg Enteric Coated Tablet PO SCH (14:04)
[2020-12-06] MEDS: Enoxaparin Sodium 40 MG/0.4 ML SYRINGE SC SCH (14:04)
[2020-12-06] MEDS: HumaLOG 300 UNITS/3 ML VIAL SC PRN ×2 (16:31→21:49)
[2020-12-06 17:09] LABS: #Eosinphils 0.1 thou/uL (0.0-0.7); #Lymphocytes 1.2 thou/uL (1.20-3.40); #Monocytes 0.7 thou/uL (0.11-0.59); %Basophils 0.1 % (0.0-1.0); %Eosinophils 1.5 % (0.0-10.0); %Lymphocytes 19.3 % (21.0-51.0); %Monocytes 12.3 % (0.0-10.0); %Neutrophils 66.8 % (42.0-75.0); Hemoglobin 12.6 g/dL (12.0-16.0); Mean Corpuscular HGB CONC 33.1 g/dL (32.0-36.0); Mean Corpuscular Hemoglobin 29.9 pg (27.0-31.0); Mean Corpuscular Volume 90.5 fL (78.0-98.0); Mean Platelet Volume 10.1 fL (7.4-10.4); Platelet Count 91 thou/uL (130-400); RBC Distribution Width 11.7 % (11.5-14.5); Red Blood Cell (RBC) Count 4.21 mill/uL (4.20-5.40)
[2020-12-06] MEDS ORDERED: Metoprolol Tartrate 50 MG TAB PO SCH (21:00)
[2020-12-07] MEDS: Sodium Chloride 0.45% 1,000 ML IV SCH (04:20)
[2020-12-07] MEDS: Levothyroxine Sodium 100 MCG TAB PO SCH (05:37)
[2020-12-07] MEDS: HumaLOG 300 UNITS/3 ML VIAL SC PRN ×3 (06:31→21:28)
[2020-12-07 08:44] LABS: Anion Gap 14 mmol/L (10-20); BUN (Urea Nitrogen) 16 mg/dL (9.8-20.1); Calc. Creatinine Clearance 58 mL/min (70-130); Calcium 9.5 mg/dL (7.8-10.44); Carbon Dioxide 21 mmol/L (23-31); Chloride 118 mmol/L (98-107); Glucose 164 mg/dL (80-115); Potassium 3.5 mmol/L (3.5-5.1); Sodium 149 mmol/L (136-145)
[2020-12-07] MEDS ORDERED: Mirtazapine 30 MG TAB PO SCH (09:00)
[2020-12-07] MEDS ORDERED: Aspirin 81 mg Enteric Coated Tablet PO SCH (09:00)
[2020-12-07] MEDS: Aspirin 81 mg Enteric Coated Tablet PO SCH (10:03)
[2020-12-07] MEDS: Nystatin 500,000 UNITS/5 ML UDCUP SSW SCH ×4 (10:03→21:30)
[2020-12-07] MEDS: Tacrolimus 1 MG CAP PO SCH ×2 (10:03→21:28)
[2020-12-07] MEDS: Cinacalcet HCl 30 MG TAB PO SCH (10:03)
[2020-12-07] MEDS: Cholecalciferol 1,000 UNITS (25 MCG) TAB PO SCH (10:05)
[2020-12-07] MEDS: Metoprolol Tartrate 50 MG TAB PO SCH ×2 (10:06→21:30)
[2020-12-07] MEDS: Magnesium Oxide 400 MG TAB PO SCH ×2 (10:06→21:30)
[2020-12-07] MEDS: predniSONE 5 MG TAB PO SCH (10:06)
[2020-12-07] MEDS: Mycophenolate 250 MG CAP PO SCH ×2 (10:06→21:29)
[2020-12-07] MEDS: Enoxaparin Sodium 40 MG/0.4 ML SYRINGE SC SCH (10:07)
[2020-12-07] MEDS: Dextrose 5% in Water 1,000 ML IV SCH ×2 (10:15→22:41)
--- NOTE | 2020-12-07 12:03 | PDOC.HOSPP ---
- Subjective Encounter Date: 12/07/20 Encounter Time: 08:00 Subjective: F/u: hypernatremia The patient is doing well with no complaints. She denies dizziness or lightheadedness . She denies abdominal pain, nausea, vomiting She gets agitated and pulls at her IV and equipment - Objective Vital Signs & Weight: Vital Signs (12 hours) Temp Pulse Resp BP Pulse Ox 12/07/20 07:40 98.2 F 98 17 166/96 H 99 12/07/20 04:00 97.2 F L 72 16 145/71 H 100 Weight Weight 106 lb 4 oz I&O: 12/06/20 12/07/20 12/08/20 06:59 06:59 06:59 Intake Total 1240 2350 Output Total 240 650 Balance 1000 1700 Result Diagrams: 12/06/20 16:43 12/07/20 08:13 Additional Labs: Accuchecks 12/07/20 12/07/20 12/06/20 10:33 05:48 20:42 POC Glucose 138 H 221 H 309 H 12/06/20 12/06/20 16:54 10:46 POC Glucose 291 H 233 H Hospitalist ROS - Review of Systems Constitutional: denies: fever, chills - Medication Medications: Active Medications Generic Name Dose Route Start Last Admin Trade Name Rudy PRN Reason Stop Dose Admin Aspirin 81 mg 12/06/20 09:00 12/07/20 10:03 Aspirin 81 Mg Enteric Coated Tablet PO 81 mg DAILY GWEN Administration Cholecalciferol 2,000 units 12/07/20 09:00 12/07/20 10:05 Cholecalciferol 1,000 Units (25 Mcg) Tab PO 2,000 units DAILY GWEN Administration Cinacalcet 90 mg 12/06/20 09:00 12/07/20 10:03 Cinacalcet Hcl 30 Mg Tab PO 90 mg DAILY GWEN Administration Enoxaparin Sodium 40 mg 12/06/20 09:00 12/07/20 10:07 Enoxaparin Sodium 40 Mg/0.4 Ml Syringe SC Not Given 0900 GWEN Famotidine 20 mg 12/05/20 21:00 12/06/20 21:08 Famotidine 20 Mg Tab PO 20 mg Q24HR GWEN Administration Glipizide 5 mg 12/06/20 16:30 12/07/20 10:07 Glipizide Xl 5 Mg Tablet PO 5 mg BID-AC GWEN Administration Dextrose/Water 1,000 mls @ 75 mls/hr 12/07/20 10:00 12/07/20 10:15 D5w IV 1,000 mls .[id number] GWEN Administration Insulin Human Lispro 0 units 12/05/20 09:10 12/07/20 06:31 Humalog 300 Units/3 Ml Vial SC 4 unit .MILD SLIDING SCALE PRN Administration Mild Correctional Scale Insulin Human Lispro 0 units 12/05/20 09:10 12/06/20 21:49 Humalog 300 Units/3 Ml Vial SC 4 unit .BEDTIME SLIDING SC PRN Administration Bedtime Correctional Scale Levothyroxine Sodium 100 mcg 12/07/20 06:00 12/07/20 05:37 Levothyroxine Sodium 100 Mcg Tab PO 100 mcg 0600 GWEN Administration Magnesium Oxide 400 mg 12/06/20 09:00 12/07/20 10:06 Magnesium Oxide 400 Mg Tab PO 400 mg QAM GWEN Administration Magnesium Oxide 400 mg 12/06/20 21:00 12/06/20 21:08 Magnesium Oxide 400 Mg Tab PO 400 mg QPM GWEN Administration Metoprolol Tartrate 50 mg 12/05/20 21:00 12/07/20 10:06 Metoprolol Tartrate 50 Mg Tab PO 50 mg BID GWEN Administration Mirtazapine 30 mg 12/07/20 09:00 12/07/20 10:06 Mirtazapine 30 Mg Tab PO 30 mg DAILY GWEN Administration Mycophenolate Mofetil 500 mg 12/05/20 21:00 12/07/20 10:06 Mycophenolate 250 Mg Cap PO 500 mg BID GWEN Administration Nystatin 500,000 units 12/05/20 13:00 12/07/20 10:03 Nystatin 500,000 Units/5 Ml Udcup SSW 500,000 units QID GWEN Administration Prednisone 5 mg 12/06/20 08:00 12/07/20 10:06 Prednisone 5 Mg Tab PO 5 mg QAM-WM GWEN Administration Tacrolimus 5 mg 12/05/20 21:00 12/07/20 10:03 Tacrolimus 1 Mg Cap PO Not Given BID [facility] Hospitalist Exam Vitals: Vital Signs (12 hours) Temp Pulse Resp BP Pulse Ox 12/07/20 07:40 98.2 F 98 17 166/96 H 99 02/18/21 04:00 97.2 F L 72 16 145/71 H 100 Weight Weight 106 lb 4 oz General Appearance: NAD, awake alert Eye: PERRL, anicteric sclera ENT: normocephalic atraumatic, no oropharyngeal lesions Neck: no JVD Heart: RRR, no murmur, no gallops, no rubs Respiratory: CTAB, no wheezes, no rales, no ronchi Gastrointestinal: soft, non-tender, non-distended, normal bowel sounds, no palpable masses Extremities: no cyanosis, no clubbing, no edema Skin: normal turgor, no lesions, no rashes Neurological: cranial nerve grossly intact, normal sensation to touch, no weakness Musculoskeletal: normal tone, normal strength, no muscle wasting Psychiatric: normal affect, normal behavior, A&O x 3 Hosp A/P - Plan This is a 70 year old female who presented ot the hospital with generalized weakness and muffled speech . She had a sodium of 149 and creatinine of 1.19 and admitted for IV fluids #Dehydration #Hypernatremia - patient was placed on 1/2 NS yesterday, sodium worsened to 149. Will switch to D5W Delirium - closely monitor with family. Acute renal failure - resolved history of renal transplant -continue prednisone and tacrolimus Diabetes type II - continue glipizide Hypothyroid - continue levothyroxine Hypertension - continue metoprolol Depression - will hold remeron due to drowsiness
[2020-12-07 18:17] LABS: Anion Gap 13 mmol/L (10-20); BUN (Urea Nitrogen) 13 mg/dL (9.8-20.1); Calc. Creatinine Clearance 55 mL/min (70-130); Calcium 8.7 mg/dL (7.8-10.44); Carbon Dioxide 21 mmol/L (23-31); Chloride 111 mmol/L (98-107); Glucose 358 mg/dL (80-115); Potassium 4.3 mmol/L (3.5-5.1); Sodium 141 mmol/L (136-145)
[2020-12-07] MEDS: Famotidine 20 MG TAB PO SCH (21:29)
[2020-12-08] MEDS: Levothyroxine Sodium 100 MCG TAB PO SCH (06:11)
[2020-12-08] MEDS: HumaLOG 300 UNITS/3 ML VIAL SC PRN ×4 (06:31→22:33)
[2020-12-08] MEDS: Cinacalcet HCl 30 MG TAB PO SCH (10:12)
[2020-12-08] MEDS: Nystatin 500,000 UNITS/5 ML UDCUP SSW SCH ×4 (10:12→22:33)
[2020-12-08] MEDS: Enoxaparin Sodium 40 MG/0.4 ML SYRINGE SC SCH (10:12)
[2020-12-08] MEDS: Cholecalciferol 1,000 UNITS (25 MCG) TAB PO SCH (10:13)
[2020-12-08] MEDS: Mycophenolate 250 MG CAP PO SCH ×2 (10:13→22:31)
[2020-12-08] MEDS: Aspirin 81 mg Enteric Coated Tablet PO SCH (10:13)
[2020-12-08] MEDS: predniSONE 5 MG TAB PO SCH (10:14)
[2020-12-08] MEDS: Magnesium Oxide 400 MG TAB PO SCH ×2 (10:14→22:27)
[2020-12-08] MEDS: Metoprolol Tartrate 50 MG TAB PO SCH ×2 (10:14→22:30)
[2020-12-08] MEDS: Tacrolimus 1 MG CAP PO SCH ×2 (11:09→22:27)
--- NOTE | 2020-12-08 12:13 | PQF ---
CLINICAL DOCUMENTATION CLARIFICATION FORM: Dear Dr. ESTEFANI LEWIS Date: Please exercise your independent, professional judgment in responding to the clarification form. Clinical indicators are provided on the bottom of this form for your review. Please check appropriate box(es): [X ] Protein Calorie Malnutrition: [ ] Mild [ ]X Moderate [ ] Severe [ ] Other Malnutrition (please specify) [ ] Other diagnosis [ ] Unable to determine In addition, please specify: Present on Admission (POA): [ X] Yes [ ] No [ ] Unable to determine For continuity of documentation, please document condition throughout progress notes and discharge summary. Thank You. To be completed by CDI/Coding staff for physician review: CLINICAL INDICATORS - SIGNS / SYMPTOMS / LABS / RESULTS AND LOCATION IN MR: BMI: 12-05-20: 18.9 PEDIATRIC UROLOGIST CONSULT 12-06-20: 2-13# weight loss and decreased po intake PEGA DEVELOPER. Records from last admit 08.02.19 indicate that she was ~144# at that time. for decreased po intake and weight loss PEGA DEVELOPER RISK FACTORS / RESULTS AND LOCATION IN MR: PEDIATRIC UROLOGIST CONSULT 12-06-20: 2-13# weight loss and decreased po intake PEGA DEVELOPER. Records from last admit 08.02.19 indicate that she was ~144# at that time. for decreased po intake and weight loss PEGA DEVELOPER TREATMENT / RESULTS AND LOCATION IN MR: PEDIATRIC UROLOGIST CONSULT 12-06-20: 1) Suggest 1500 Consistent Carbohydrate diet, leaving off Heart Healthy restriction to promote po intake. Continue consistency per BAKERY DECORATOR recommendation. 2) Supplement with SF Mighty Shake PRN for intake less than 75%. 3) Please weigh patient. Moderate Malnutrition (in acute illness) Energy Intake: <75% of estimated energy requirement for > 7 days Weight Loss: 1-2%/1 week; 5%/ 1 month; 7.5%/3 months Other: mild body fat loss; mild muscle mass loss; mild fluid accumulation; Severe Malnutrition (in acute illness) Energy Intake: = 50% of estimated energy requirement for = 5 days Weight Loss: >2%/1 week; >5%/1 month; >7.5%/3 months Other: moderate body fat loss; moderate muscle mass loss; moderate- severe fluid accumulation; measurably reduced mortician helper strength Moderate Malnutrition (in chronic illness) Energy Intake: <75% of estimated energy requirement for =1 month Weight Loss: 5%/1 month; 7.5%/3 months; 10%/6 months; 20%/1 year Other: mild body fat loss; mild muscle mass loss; mild fluid accumulation Severe Malnutrition (in chronic illness) Energy Intake: =75% of estimated energy requirement for =1 month Weight Loss: >5%/1 month; >7.5%/3 months; >10%/6 months; >20%/1 year Other: severe body fat loss; severe muscle mass loss; severe fluid accumulation; measurably reduced mortician helper strength CDS Signature: Celia Kumar Phone #: [phone] Date: 12-08-20 This is a permanent part of the Medical Record [facility]
[2020-12-08 12:46] VITALS: BMI 18.8
--- NOTE | 2020-12-08 13:09 | PDOC.HOSPP ---
- Subjective Encounter Date: 12/08/20 Encounter Time: 12:00 Subjective: F/u: hypernatremia The patient is more alert and oriented. She is eating pureed food. Sodium has now normalized. According to the daughter, the patient wasn't eating well because she was having trouble swallowing but is doing well with the pureed diet Discussed with daughter about patient potentially going home, however the daughter states patient just started eating properly and wants one more day of therapy to gain her strength back prior to dc she is interested in home health with PT - Objective Vital Signs & Weight: Vital Signs (12 hours) Temp Pulse Resp BP Pulse Ox 12/08/20 13:03 98.2 F 82 21 H 103/57 L 94 L 12/08/20 10:04 98.8 F 97 18 116/62 99 12/08/20 03:27 97.3 F L 81 18 142/67 H 98 Weight Admit Weight 110 lb 2 oz Weight 110 lb 2 oz I&O: 12/07/20 12/08/20 12/09/20 06:59 06:59 06:59 Intake Total 2350 1230 Output Total 650 1000 Balance 1700 230 Result Diagrams: 12/06/20 16:43 12/07/20 17:46 Additional Labs: Accuchecks 12/08/20 12/08/20 12/07/20 11:17 06:13 20:38 POC Glucose 225 H 294 H 307 H 12/07/20 16:32 POC Glucose 281 H Hospitalist ROS - Review of Systems Constitutional: denies: fever, chills - Medication Medications: Active Medications Generic Name Dose Route Start Last Admin Trade Name Rudy PRN Reason Stop Dose Admin Acetaminophen 650 mg 12/05/20 09:10 12/07/20 21:29 Acetaminophen 325 Mg Tab PO 650 mg Q4H PRN Administration Headache/Fever/Mild Pain (1-3) Aspirin 81 mg 12/06/20 09:00 12/08/20 10:13 Aspirin 81 Mg Enteric Coated Tablet PO 81 mg DAILY GWEN Administration Cholecalciferol 2,000 units 12/07/20 09:00 12/08/20 10:13 Cholecalciferol 1,000 Units (25 Mcg) Tab PO 2,000 units DAILY GWEN Administration Cinacalcet 90 mg 12/06/20 09:00 12/08/20 10:12 Cinacalcet Hcl 30 Mg Tab PO 90 mg DAILY GWEN Administration Enoxaparin Sodium 40 mg 12/06/20 09:00 12/08/20 10:12 Enoxaparin Sodium 40 Mg/0.4 Ml Syringe SC Not Given 0900 [facility] Famotidine 20 mg 12/05/20 21:00 12/07/20 21:29 Famotidine 20 Mg Tab PO 20 mg Q24HR GWEN Administration Glipizide 5 mg 12/06/20 16:30 12/08/20 10:13 Glipizide Xl 5 Mg Tablet PO 5 mg BID-AC GWEN Administration Insulin Human Lispro 0 units 12/05/20 09:10 12/08/20 13:00 Humalog 300 Units/3 Ml Vial SC 3 unit .MILD SLIDING SCALE PRN Administration Mild Correctional Scale Insulin Human Lispro 0 units 12/05/20 09:10 12/07/20 21:28 Humalog 300 Units/3 Ml Vial SC 4 unit .BEDTIME SLIDING SC PRN Administration Bedtime Correctional Scale Levothyroxine Sodium 100 mcg 12/07/20 06:00 12/08/20 06:11 Levothyroxine Sodium 100 Mcg Tab PO 100 mcg 0600 GWEN Administration Magnesium Oxide 400 mg 12/06/20 09:00 12/08/20 10:14 Magnesium Oxide 400 Mg Tab PO 400 mg QAM GWEN Administration Magnesium Oxide 400 mg 12/06/20 21:00 12/07/20 21:30 Magnesium Oxide 400 Mg Tab PO 400 mg QPM GWEN Administration Metoprolol Tartrate 50 mg 12/05/20 21:00 12/08/20 10:14 Metoprolol Tartrate 50 Mg Tab PO 50 mg BID GWEN Administration Mycophenolate Mofetil 500 mg 12/05/20 21:00 12/08/20 10:13 Mycophenolate 250 Mg Cap PO 500 mg BID GWEN Administration Nystatin 500,000 units 12/05/20 13:00 12/08/20 10:12 Nystatin 500,000 Units/5 Ml Udcup SSW 500,000 units QID GWEN Administration Prednisone 5 mg 12/06/20 08:00 12/08/20 10:14 Prednisone 5 Mg Tab PO 5 mg QAM-WM GWEN Administration Sodium Chloride 10 ml 12/07/20 21:00 12/08/20 10:13 Flush - Normal Saline 10 Ml Syringe IVF 10 ml Q12HR GWEN Administration Tacrolimus 5 mg 12/05/20 21:00 12/08/20 11:09 Tacrolimus 1 Mg Cap PO 5 mg BID GWEN Administration Hospitalist Exam Vitals: Vital Signs (12 hours) Temp Pulse Resp BP Pulse Ox 12/08/20 13:03 98.2 F 82 21 H 103/57 L 94 L 12/08/20 10:04 98.8 F 97 18 116/62 99 12/08/20 03:27 97.3 F L 81 18 142/67 H 98 Weight Admit Weight 110 lb 2 oz Weight 110 lb 2 oz General Appearance: NAD, awake alert Eye: PERRL, anicteric sclera ENT: normocephalic atraumatic, no oropharyngeal lesions Neck: no JVD Heart: RRR, no murmur, no gallops, no rubs Respiratory: CTAB, no wheezes, no rales, no ronchi Gastrointestinal: soft, non-tender, non-distended, normal bowel sounds Extremities: no cyanosis, no clubbing, no edema Skin: normal turgor, no lesions, no rashes Neurological: cranial nerve grossly intact, normal sensation to touch, no focal deficits, no new deficit Psychiatric: A&O x 3 Hosp A/P - Plan This is a 70 year old female who presented ot the hospital with generalized weakness and muffled speech . She had a sodium of 149 and creatinine of 1.19 and admitted for IV fluids #Dehydration #Hypernatremia -sodium has normalized to 141 with D5W. Discontinued fluids Physical deconditioning - will place case management consult for home health, PT is following Delirium -significantly improved, patient is now alert and oriented times three Acute renal failure - resolved history of renal transplant -continue prednisone and tacrolimus Diabetes type II - blood sugars 200-300, but was on D5W. Continue glipizide, should improve after stopping dextrose Hypothyroid - continue levothyroxine Hypertension - continue metoprolol Depression? -discontinued remeron, patient not on antidepressants as an outpatient Dispos: CM consult for home health, likely d/c tomorrow
[2020-12-08] MEDS: Famotidine 20 MG TAB PO SCH (22:30)
[2020-12-09] MEDS: Levothyroxine Sodium 100 MCG TAB PO SCH (06:15)
[2020-12-09] MEDS: Cholecalciferol 1,000 UNITS (25 MCG) TAB PO SCH (08:04)
[2020-12-09] MEDS: predniSONE 5 MG TAB PO SCH (08:04)
[2020-12-09] MEDS: Cinacalcet HCl 30 MG TAB PO SCH (08:04)
[2020-12-09] MEDS: Aspirin 81 mg Enteric Coated Tablet PO SCH (08:04)
[2020-12-09] MEDS: Enoxaparin Sodium 40 MG/0.4 ML SYRINGE SC SCH (08:05)
[2020-12-09] MEDS: Magnesium Oxide 400 MG TAB PO SCH (08:06)
[2020-12-09] MEDS: Nystatin 500,000 UNITS/5 ML UDCUP SSW SCH (08:06)
[2020-12-09] MEDS: Metoprolol Tartrate 50 MG TAB PO SCH (08:06)
[2020-12-09] MEDS: Mycophenolate 250 MG CAP PO SCH (08:06)
[2020-12-09] MEDS: Tacrolimus 1 MG CAP PO SCH (08:07)
[2020-12-09] MEDS ORDERED: Hydrocortisone/Pramoxine (Proctofoam HC) 10 GM BOX PR SCH (09:00)
--- NOTE | 2020-12-09 12:05 | PDOC.FMACP ---
Advance Care Planning - Problem (1) Palliative care encounter Status: Acute Code(s): Z51.5 - ENCOUNTER FOR PALLIATIVE CARE (2) Dementia Status: Acute Code(s): F03.90 - UNSPECIFIED DEMENTIA WITHOUT BEHAVIORAL DIST URBANCE (3) Dysphagia Status: Acute Code(s): R13.10 - DYSPHAGIA, UNSPECIFIED (4) Generalized weakness Status: Acute Code(s): R53.1 - WEAKNESS (5) Diabetes type 2, controlled Status: Chronic Code(s): E11.9 - TYPE 2 DIABETES MELLITUS WITHOUT COMPLICATIONS - Note Participants: patient, family, palliative care Summary: Reviewed Advanced Care Planning at patient bedside with patient and daughter. The diagnosis, prognosis and goals of care were discussed. Appropriate forms and documentation to accomplish the goals of care were discussed. All questions were answered. Patient verbal, but poor cognition. Daughter confirms DNAR and OOHDNAR completed. Transition to home setting with home health, Daughter states they desire to use [facility] if able. Discussed disease trajectory and progression, daughter understanding but requests more information to read at home. Will provide educational material for Daughter and patient Emotional support. Time Spent (mins): 40
--- NOTE | 2020-12-09 12:09 | PDOC.PALFU ---
Palliative Care Follow-up Note As goals are addressed, assisted in OOHDNAR palliative care will sign off. If we can assist in the future with revisiting goal of care, complex decision making, coping, prognosis disease assist please re consult our team. Thank you for this very appropriate consult.
[2020-12-09 12:15] VITALS: BP 116/63; TEMP 98.4
--- NOTE | 2020-12-09 15:16 | EKG ---
Test Reason : Blood Pressure : / mmHG Vent. Rate : 082 BPM Atrial Rate : 082 BPM P-R Int : 122 ms QRS Dur : 078 ms QT Int : 356 ms P-R-T Axes : 059 037 035 degrees QTc Int : 415 ms Normal sinus rhythm Possible Left atrial enlargement Septal infarct , age undetermined Abnormal ECG Confirmed by CHAVO HINOJOSA M.D. ([id number]), electronic news gathering editor BRENDA BRADFORD ([id number] on 12/09/2020 3:16:02 PM Referred By: Confirmed By:CHAVO HINOJOSA M.D.
--- NOTE | 2020-12-09 18:04 | PDOC.DS.DS ---
Provider Date of Admission: 12/06/20 13:15 Date of Discharge: 12/09/20 Admitting Provider: Nehemias Pepe MD Primary Care Physician: Acosta Heart MD Course Hospital Course: Patient is a 70-year-old female with a history of renal transplant on chronic immunosuppression. Patient also has dementia and has had progression over the last year or so. Of late the patient has had decreased p.o. intake. Her daughter reported that she would only chew solid foods and then spit them out without swallowing them. Patient had become increasingly weak to the point she was having muffled speech. She subsequently presented to the emergency department. She initially had a low-grade temp of 100. She had mild hypernatremia and hyperglycemia with a blood sugar of 429. Patient had evaluation with cultures and imaging which did not show any specific form of infection. Patient's daughter was clear that the patient would not have wanted a PEG tube for feeding tube of any kind. Patient was evaluated by speech therapy and was found to do better with pured diet. Once this was actually initiated the patient did subsequently start eating somewhat better. Once she was back on a bit of a better diet her blood sugars did continue to run a bit high. However she was appearing stronger and was eating better in general. Ruben flynn's daughter was comfortable with taking her home. She was instructed to continue to monitor her blood sugars before every meal and at bedtime. She should call Dr. Heart on Friday. If her blood sugars continue to run high she will likely need to increase the glipizide dosing. Resuscitation Status: 12/05/20 09:58 Resuscitation Status Routine Resuscitation Status: DNAR: NO Resuscitation Discussed with: Daughter who is medical power of trade mark attorney Lab Results: 12/06/20 16:43 12/07/20 17:46 Abnormal Lab Results - Last 48 hrs 12/07/20 17:46: Chloride 111 H, Carbon Dioxide 21 L Microbiology - Entire Visit 12/05/20 16:16 Venous blood - Right Hand Blood Culture - Preliminary NO GROWTH AT 48 HOURS 12/05/20 15:07 Venous blood - Right Hand Blood Culture - Preliminary NO GROWTH AT 48 HOURS Vitals: Vital Signs (12 hours) Temp Pulse Resp BP Pulse Ox 12/09/20 12:00 98.4 F 80 17 116/63 96 12/09/20 07:44 98.1 F 80 18 117/61 100 Weight Admit Weight 110 lb 2 oz Weight 110 lb 2 oz Physical Exam: The patient was seen and examined on the day of discharge. General Appearance: NAD, awake alert Respiratory: CTAB, no wheezes, no rales, no ronchi Cardiovascular: RRR, no murmur, no gallops, no rubs Gastrointestinal: soft, non-tender, non-distended, normal bowel sounds Extremities: no cyanosis, no clubbing, no edema Skin: normal turgor Musculoskeletal: normal tone, generalized weakness PSYCH: not oriented Problem (1) Hypernatremia Code(s): E87.0 - HYPEROSMOLALITY AND HYPERNATREMIA Status: Acute (2) Status post kidney transplant Code(s): Z94.0 - KIDNEY TRANSPLANT STATUS Status: Acute (3) Dementia Code(s): F03.90 - UNSPECIFIED DEMENTIA WITHOUT BEHAVIORAL DISTURBANCE Status: Acute (4) Dysphagia Code(s): R13.10 - DYSPHAGIA, UNSPECIFIED Status: Acute (5) Generalized weakness Code(s): R53.1 - WEAKNESS Status: Acute (6) Hypothyroidism Code(s): E03.9 - HYPOTHYROIDISM, UNSPECIFIED Status: Chronic (7) Immunosuppressed status Code(s): D89.9 - DISORDER INVOLVING THE IMMUNE MECHANISM, UNSPECIFIED Status: Chronic Plan Home Medications: Medication Instructions Recorded Confirmed Type Cinacalcet HCl [Sensipar] 90 mg PO DAILY 03/11/18 12/06/20 History Famotidine [Pepcid] 20 mg PO DAILY 03/11/18 12/06/20 History Mycophenolate [Cellcept] 500 mg PO BID 03/11/18 12/06/20 History Tacrolimus [Prograf] 5 mg PO BID 03/11/18 12/06/20 History glipiZIDE [Glucotrol XL] 5 mg PO BID 03/11/18 12/06/20 History predniSONE [Prednisone] 5 mg PO DAILY 03/11/18 12/06/20 History Magnesium Oxide 400 mg PO QPM 08/03/19 12/06/20 History Aspirin [Ecotrin Low Strength] 81 mg PO DAILY 12/06/20 12/06/20 History Cholecalciferol (Vitamin D3) 50 ml PO DAILY 12/06/20 12/06/20 History [Vitamin D] Levothyroxine Sodium 100 mcg PO DAILY 12/06/20 12/06/20 History [Levothyroxine] Metoprolol Tartrate [Lopressor] 50 mg PO BID 12/06/20 12/06/20 History Mirtazapine 30 mg PO DAILY 12/06/20 12/06/20 History Allergies: No Known Drug Allergies Allergy (Verified 03/11/18 20:32) Discharge Instructions:: Monitor blood sugars with meals and at bedtime. Record the numbers and call Dr. Heart on Friday to see if medication changes are in order. Activity:: Activity as Tolerated Nourishment:: Diabetic Diet Referrals: [facility] [Outside] (Nursing with physical therapy services.) Acosta Heart MD [Primary Care Provider] - 7 Days (Please call the office and schedule a follow up appointment) Disposition: HOME HEALTH Quality CORE MEASURES:: N/A
== END 2020-12-09 15:11 | disposition home health service (06) | DRG 699 ==
LOC: ERS 02:14 → ERHOLD 04:53 → 2NO 21:59 → OBSVTOIN 12-06 13:15
PROVIDERS: ADMIT Student in an Organized Health Care Education/Training Program; ATTEND Internal Medicine
DX: T86.12 Kidney transplant failure (principal); N17.9 Acute kidney failure, unspecified; Z66 Do not resuscitate; Z20.822 Contact with and (suspected) exposure to COVID-19; E87.0 Hyperosmolality and hypernatremia; D84.81 Immunodeficiency due to conditions classified elsewhere; E44.0 Moderate protein-calorie malnutrition; Z68.1 Body mass index [BMI] 19.9 or less, adult; F05 Delirium due to known physiological condition; N25.81 Secondary hyperparathyroidism of renal origin; Z78.1 Physical restraint status; R13.10 Dysphagia, unspecified; E03.9 Hypothyroidism, unspecified; F03.90 Unspecified dementia, unspecified severity, without behavioral disturbance, psychotic disturbance, mood disturbance, and anxiety; E11.65 Type 2 diabetes mellitus with hyperglycemia; K21.9 Gastro-esophageal reflux disease without esophagitis; E78.00 Pure hypercholesterolemia, unspecified; Y83.0 Surgical operation with transplant of whole organ as the cause of abnormal reaction of the patient, or of later complication, without mention of misadventure at the time of the procedure; F32.9 Major depressive disorder, single episode, unspecified; Z79.899 Other long term (current) drug therapy; Z79.84 Long term (current) use of oral hypoglycemic drugs; Z79.82 Long term (current) use of aspirin; Z79.52 Long term (current) use of systemic steroids; Z79.890 Hormone replacement therapy; Z90.710 Acquired absence of both cervix and uterus
CPT/HCPCS: 0240U; 36415; 36416; 70450; 71045; 80048; 80053; 81003; 81015; 82553; 84484; 85025; 87040; 93005; G0378; J1815; J7507; J7512; J7517

== ENCOUNTER 2021-11-11 04:23 | Emergency (ER) | payer MEDICARE ==
[2021-11-11 07:36] LABS: ALT (SGPT) 7 U/L (8-55); AST (SGOT) 9 U/L (5-34); Albumin 3.5 g/dL (3.4-4.8); Alkaline Phosphatase 59 U/L (40-110); Anion Gap 12 mmol/L (10-20); BUN (Urea Nitrogen) 8 mg/dL (9.8-20.1); Calc. Creatinine Clearance 0 mL/min (70-130); Calcium 9.8 mg/dL (7.8-10.44); Carbon Dioxide 24 mmol/L (23-31); Chloride 104 mmol/L (98-107); Glucose 244 mg/dL (80-115); Potassium 3.6 mmol/L (3.5-5.1); Protein, Total 6.5 g/dL (5.8-8.1); Sodium 136 mmol/L (136-145)
[2021-11-11 07:38] LABS: #Lymphocytes 0.4 thou/uL (1.20-3.40); #Monocytes 0.5 thou/uL (0.11-0.59); #Neutrophils 3.3 thou/uL (1.40-6.50); %Lymphocytes 10.1 % (21.0-51.0); %Monocytes 12.2 % (0.0-10.0); %Neutrophils 76.7 % (42.0-75.0); Hemoglobin 11.1 g/dL (12.0-16.0); Mean Corpuscular HGB CONC 33.5 g/dL (32.0-36.0); Mean Corpuscular Hemoglobin 30.4 pg (27.0-31.0); Mean Corpuscular Volume 90.6 fL (78.0-98.0); Mean Platelet Volume 8.4 fL (7.4-10.4); Platelet Count 91 thou/uL (130-400); RBC Distribution Width 11.8 % (11.5-14.5); Red Blood Cell (RBC) Count 3.64 mill/uL (4.20-5.40); White Blood Cell (WBC) Count 4.3 thou/uL (4.8-10.8)
== END 2021-11-11 08:20 | disposition home or self-care (01) ==
LOC: ERS 04:23
DX: U07.1 COVID-19 (principal); E03.9 Hypothyroidism, unspecified; I10 Essential (primary) hypertension; E11.9 Type 2 diabetes mellitus without complications; Z99.2 Dependence on renal dialysis; Z94.0 Kidney transplant status
CPT/HCPCS: 36415; 70450; 71045; 80053; 85025; 93005; 94760

== ENCOUNTER 2022-03-01 10:42 | Outpatient (CLI) | payer MEDICARE | END 2022-03-01 10:43 | disposition home or self-care (01) | LOC: BICRAD 10:42 | PROVIDERS: ATTEND Family Medicine | DX: R22.31 Localized swelling, mass and lump, right upper limb (principal) ==

== ENCOUNTER 2022-10-31 17:11 | Inpatient (IN) | payer MEDICARE ==
[~2022-10-31 17:11] MED LIST: Iopamidol-370 76% 500 ML 1 ML ONE
[2022-10-31 17:47] LABS: #Lymphocytes 0.2 thou/uL (1.20-3.40); #Neutrophils 5.6 thou/uL (1.40-6.50); %Eosinophils 0.2 % (0.0-10.0); %Monocytes 0.7 % (0.0-10.0); %Neutrophils 96.1 % (42.0-75.0); Hemoglobin 10.1 g/dL (12.0-16.0); Mean Corpuscular HGB CONC 32.4 g/dL (32.0-36.0); Mean Corpuscular Hemoglobin 28.9 pg (27.0-31.0); Mean Corpuscular Volume 89.2 fl (78.0-98.0); Mean Platelet Volume 8.2 fL (7.4-10.4); Platelet Count 121 10x3/uL (130-400); RBC Distribution Width 12.9 % (11.5-14.5); Red Blood Cell (RBC) Count 3.51 mill/uL (4.20-5.40); White Blood Cell (WBC) Count 5.9 10x3/uL (4.8-10.8)
[2022-10-31 17:57] LABS: Bacteria/HPF 2+ HPF (None Seen); Bilirubin Negative (Negative); Blood, Urine 1+ (Negative); Clarity Turbid (Clear); Glucose, Urine (Dipstick) Greater than 1000 mg/dL (Negative); Ketone, Urine Trace mg/dL (Negative); Leukocyte 75 Leu/uL (Negative); Nitrite Negative (Negative); Protein, Urine (Dipstick) Negative (Neg-Trace); RBC/HPF 0-3 HPF (0-3); Specific Gravity, Urine 1.016 (1.002-1.036); Squamous Epithelial None Seen HPF (0-3); Urobilinogen Normal mg/dL (Less than 2); WBC/HPF 21-50 HPF (0-3); pH, Urine 5.5 (5.0-9.0)
[2022-10-31 18:11] LABS: ALT (SGPT) Less than 7 U/L (8-55); AST (SGOT) 8 U/L (5-34); Albumin 3.8 g/dL (3.4-4.8); Alkaline Phosphatase 96 U/L (40-110); Anion Gap 14 mmol/L (10-20); BUN (Urea Nitrogen) 14 mg/dL (9.8-20.1); Bilirubin, Total 0.7 mg/dL (0.2-1.2); Calc. Creatinine Clearance 0 mL/min (70-130); Calcium 10.6 mg/dL (7.8-10.44); Carbon Dioxide 26 mmol/L (23-31); Chloride 103 mmol/L (98-107); Estimated GFR 91; Globulin 3.4 g/dL (2.4-3.5); Glucose 274 mg/dL (83-110); Potassium 3.8 mmol/L (3.5-5.1); Protein, Total 7.2 g/dL (5.8-8.1); Sodium 139 mmol/L (136-145)
[2022-10-31] MEDS ORDERED: Cefepime 2 GM VIAL ONE (20:28)
[2022-10-31 20:35] LABS: Lactic Acid 1.9 mmol/L (0.5-2.2)
[2022-10-31] MEDS ORDERED: Acetaminophen 325 MG TAB PO PRN (21:00)
[2022-10-31] MEDS ORDERED: Ondansetron PF 4 MG/2 ML Vial IVP PRN (21:00)
[2022-10-31] MEDS ORDERED: Dextrose 5% in Water 1,000 ML IV PRN (21:05)
[2022-10-31] MEDS ORDERED: HumaLOG 300 UNITS/3 ML VIAL SC PRN (21:05)
[2022-10-31] MEDS ORDERED: Dextrose 50% Abboject 50 ML SYRINGE SLOW IVP PRN (21:05)
[2022-10-31] MEDS: Apixaban 2.5 MG TAB PO SCH (22:23)
[2022-11-01 00:06] VITALS: BMI 22.7
[2022-11-01 07:15] LABS: #Lymphocytes 0.6 thou/uL (1.20-3.40); #Monocytes 0.7 thou/uL (0.11-0.59); #Neutrophils 4.3 thou/uL (1.40-6.50); %Eosinophils 0.5 % (0.0-10.0); %Lymphocytes 10.6 % (21.0-51.0); %Monocytes 11.9 % (0.0-10.0); %Neutrophils 76.9 % (42.0-75.0); Hemoglobin 9.2 g/dL (12.0-16.0); Mean Corpuscular HGB CONC 32.4 g/dL (32.0-36.0); Mean Corpuscular Volume 89.4 fl (78.0-98.0); Platelet Count 110 10x3/uL (130-400); RBC Distribution Width 12.9 % (11.5-14.5); Red Blood Cell (RBC) Count 3.19 mill/uL (4.20-5.40); White Blood Cell (WBC) Count 5.6 10x3/uL (4.8-10.8)
[2022-11-01 07:17] LABS: Anion Gap 8 mmol/L (10-20); BUN (Urea Nitrogen) 6 mg/dL (9.8-20.1); Calc. Creatinine Clearance 62 mL/min (70-130); Calcium 9.6 mg/dL (7.8-10.44); Carbon Dioxide 28 mmol/L (23-31); Chloride 104 mmol/L (98-107); Estimated GFR 95; Glucose 177 mg/dL (83-110); Potassium 3.4 mmol/L (3.5-5.1); Sodium 137 mmol/L (136-145)
[2022-11-01 07:36] LABS: Free T4 (Free Thyroxine) 1.53 ng/dL (0.70-1.48)
[2022-11-01] MEDS ORDERED: Potassium Chloride 20 MEQ TAB PO SCH (07:45)
[2022-11-01] MEDS: Apixaban 2.5 MG TAB PO SCH ×2 (08:33→20:50)
[2022-11-01] MEDS: Cholecalciferol 1,000 UNITS (25 MCG) TAB PO SCH (08:33)
[2022-11-01] MEDS: Magnesium Oxide 400 MG TAB PO SCH (08:33)
[2022-11-01] MEDS: Famotidine 20 MG TAB PO SCH (08:33)
[2022-11-01] MEDS: predniSONE 1 MG/ML ML PO SCH (08:34)
[2022-11-01] MEDS: Cefepime 1 GM in Sodium Chloride 0.9% 100 ML IVPB SCH ×2 (08:35→20:50)
[2022-11-01] MEDS ORDERED: Potassium Bicarbonate/Cit Ac 20 MEQ TAB PO SCH (08:45)
[2022-11-01] MEDS ORDERED: predniSONE 5 MG TAB PO SCH (09:00)
[2022-11-01] MEDS ORDERED: FLU VACC QS2022-23(65YR UP)/PF 240 MCG/0.7 ML SYRINGE IM ONE (09:00)
[2022-11-01] MEDS: Metoprolol Tartrate 25 MG TAB PO SCH ×2 (11:07→20:50)
[2022-11-01] MEDS: TACROLIMUS 1 MG/ML PO SCH ×2 (12:07→20:50)
[2022-11-01] MEDS: HumaLOG 300 UNITS/3 ML VIAL SC PRN (17:56)
[2022-11-01] MEDS: Mirtazapine 30 MG TAB PO SCH (20:49)
[2022-11-01] MEDS ORDERED: traMADol HCl 50 MG TAB PO SCH (21:00)
[2022-11-02 05:37] LABS: #Lymphocytes 0.4 thou/uL (1.20-3.40); #Monocytes 0.6 thou/uL (0.11-0.59); #Neutrophils 6.2 thou/uL (1.40-6.50); %Basophils 0.3 % (0.0-1.0); %Eosinophils 0.1 % (0.0-10.0); %Lymphocytes 5.9 % (21.0-51.0); %Neutrophils 85.8 % (42.0-75.0); Hemoglobin 10.6 g/dL (12.0-16.0); Mean Corpuscular HGB CONC 32.9 g/dL (32.0-36.0); Mean Corpuscular Hemoglobin 28.9 pg (27.0-31.0); Mean Platelet Volume 8.7 fL (7.4-10.4); Platelet Count 127 10x3/uL (130-400); RBC Distribution Width 12.8 % (11.5-14.5); Red Blood Cell (RBC) Count 3.67 mill/uL (4.20-5.40); White Blood Cell (WBC) Count 7.2 10x3/uL (4.8-10.8)
[2022-11-02 05:53] LABS: Anion Gap 12 mmol/L (10-20); BUN (Urea Nitrogen) 6 mg/dL (9.8-20.1); Calc. Creatinine Clearance 60 mL/min (70-130); Calcium 10.2 mg/dL (7.8-10.44); Carbon Dioxide 25 mmol/L (23-31); Chloride 97 mmol/L (98-107); Estimated GFR 94; Glucose 255 mg/dL (83-110); Sodium 130 mmol/L (136-145)
[2022-11-02] MEDS: Levothyroxine Sodium 75 MCG TAB PO SCH (05:53)
[2022-11-02] MEDS: HumaLOG 300 UNITS/3 ML VIAL SC PRN ×2 (06:02→16:54)
[2022-11-02] MEDS: predniSONE 1 MG/ML ML PO SCH (10:52)
[2022-11-02] MEDS: TACROLIMUS 1 MG/ML PO SCH ×2 (10:52→22:03)
[2022-11-02] MEDS: Metoprolol Tartrate 25 MG TAB PO SCH ×2 (10:53→22:03)
[2022-11-02] MEDS: Famotidine 20 MG TAB PO SCH (10:53)
[2022-11-02] MEDS: Cholecalciferol 1,000 UNITS (25 MCG) TAB PO SCH (10:53)
[2022-11-02] MEDS: Apixaban 2.5 MG TAB PO SCH ×2 (10:53→22:03)
[2022-11-02] MEDS: Cefepime 1 GM in Sodium Chloride 0.9% 100 ML IVPB SCH (10:54)
[2022-11-02] MEDS: Magnesium Oxide 400 MG TAB PO SCH (10:54)
[2022-11-02] MEDS ORDERED: Acetaminophen 325 MG TAB PO PRN (17:36)
[2022-11-02] MEDS ORDERED: cefTRIAXone\\ROCEPHIN 2 GM in Sodium Chloride 0.9% 100 ML IVPB SCH (18:00)
[2022-11-02] MEDS: Mirtazapine 30 MG TAB PO SCH (22:03)
[2022-11-03] MEDS: Levothyroxine Sodium 75 MCG TAB PO SCH (05:30)
[2022-11-03] MEDS: HumaLOG 300 UNITS/3 ML VIAL SC PRN ×3 (05:30→18:19)
[2022-11-03 05:36] LABS: #Lymphocytes 0.8 thou/uL (1.20-3.40); #Monocytes 0.9 thou/uL (0.11-0.59); #Neutrophils 5.7 thou/uL (1.40-6.50); %Basophils 0.2 % (0.0-1.0); %Eosinophils 0.4 % (0.0-10.0); %Lymphocytes 10.2 % (21.0-51.0); %Monocytes 12.1 % (0.0-10.0); Hemoglobin 10.9 g/dL (12.0-16.0); Mean Corpuscular HGB CONC 32.2 g/dL (32.0-36.0); Mean Corpuscular Hemoglobin 28.4 pg (27.0-31.0); Mean Corpuscular Volume 88.2 fl (78.0-98.0); Platelet Count 136 10x3/uL (130-400); RBC Distribution Width 12.9 % (11.5-14.5); Red Blood Cell (RBC) Count 3.84 mill/uL (4.20-5.40); White Blood Cell (WBC) Count 7.3 10x3/uL (4.8-10.8)
[2022-11-03 05:56] LABS: Anion Gap 11 mmol/L (10-20); BUN (Urea Nitrogen) 6 mg/dL (9.8-20.1); Calc. Creatinine Clearance 58 mL/min (70-130); Calcium 10.6 mg/dL (7.8-10.44); Carbon Dioxide 24 mmol/L (23-31); Chloride 99 mmol/L (98-107); Estimated GFR 93; Glucose 247 mg/dL (83-110); Potassium 4.1 mmol/L (3.5-5.1); Sodium 130 mmol/L (136-145)
[2022-11-03] MEDS: Magnesium Oxide 400 MG TAB PO SCH (09:21)
[2022-11-03] MEDS: Famotidine 20 MG TAB PO SCH (09:22)
[2022-11-03] MEDS: Metoprolol Tartrate 25 MG TAB PO SCH ×2 (09:22→21:41)
[2022-11-03] MEDS: Apixaban 2.5 MG TAB PO SCH ×2 (09:22→21:42)
[2022-11-03] MEDS: Cholecalciferol 1,000 UNITS (25 MCG) TAB PO SCH (09:22)
[2022-11-03] MEDS: predniSONE 1 MG/ML ML PO SCH (09:25)
[2022-11-03] MEDS: TACROLIMUS 1 MG/ML PO SCH ×2 (09:25→21:42)
[2022-11-03] MEDS ORDERED: Lidocaine 5% Patch TD SCH (16:00)
[2022-11-03] MEDS: Acetaminophen 325 MG TAB PO SCH ×2 (16:11→21:41)
[2022-11-03] MEDS ORDERED: Hydrocortisone Acetate 25 MG Suppository PR PRN (17:08)
[2022-11-03] MEDS: metFORMIN 500 MG TAB PO SCH (17:11)
[2022-11-03] MEDS: Cefdinir 300 MG CAP PO SCH (21:41)
[2022-11-03] MEDS: Mirtazapine 30 MG TAB PO SCH (21:41)
[2022-11-04] MEDS ORDERED: Transdermal Patch Removal TOP SCH (04:00)
[2022-11-04 05:29] LABS: Anion Gap 14 mmol/L (10-20); BUN (Urea Nitrogen) 7 mg/dL (9.8-20.1); Calc. Creatinine Clearance 63 mL/min (70-130); Calcium 10.4 mg/dL (7.8-10.44); Carbon Dioxide 21 mmol/L (23-31); Chloride 99 mmol/L (98-107); Estimated GFR 95; Glucose 126 mg/dL (83-110); Potassium 3.9 mmol/L (3.5-5.1); Sodium 130 mmol/L (136-145)
[2022-11-04] MEDS: Levothyroxine Sodium 75 MCG TAB PO SCH (06:00)
[2022-11-04] MEDS ORDERED: Metoprolol Tartrate 25 MG TAB PO SCH (09:00)
[2022-11-04] MEDS: metFORMIN 500 MG TAB PO SCH (09:25)
[2022-11-04] MEDS: Cefdinir 300 MG CAP PO SCH (09:25)
[2022-11-04] MEDS: Magnesium Oxide 400 MG TAB PO SCH (09:25)
[2022-11-04] MEDS: Cholecalciferol 1,000 UNITS (25 MCG) TAB PO SCH (09:26)
[2022-11-04] MEDS: Acetaminophen 325 MG TAB PO SCH (09:27)
[2022-11-04] MEDS: Famotidine 20 MG TAB PO SCH (09:27)
[2022-11-04] MEDS: Apixaban 2.5 MG TAB PO SCH (09:29)
[2022-11-04] MEDS: TACROLIMUS 1 MG/ML PO SCH (09:29)
[2022-11-04] MEDS: Metoprolol Tartrate 25 MG TAB PO SCH (09:30)
[2022-11-04] MEDS: predniSONE 1 MG/ML ML PO SCH (09:44)
[2022-11-04 11:35] VITALS: BP 84/59; TEMP 96.2
[2022-11-04 16:13] LABS: Tacrolimus 3.8 ng/mL (2.0-20.0)
== END 2022-11-04 13:55 | disposition home or self-care (01) | DRG 871 ==
LOC: ERS 17:11 → NEURO 19:52
PROVIDERS: ADMIT Internal Medicine; ATTEND Internal Medicine
DX: A41.51 Sepsis due to Escherichia coli [E. coli] (principal); Z66 Do not resuscitate; Z20.822 Contact with and (suspected) exposure to COVID-19; G93.41 Metabolic encephalopathy; N39.0 Urinary tract infection, site not specified; E87.20 Acidosis, unspecified; Q61.3 Polycystic kidney, unspecified; Z94.0 Kidney transplant status; D84.821 Immunodeficiency due to drugs; I48.91 Unspecified atrial fibrillation; E03.9 Hypothyroidism, unspecified; E11.9 Type 2 diabetes mellitus without complications; D69.6 Thrombocytopenia, unspecified; F03.90 Unspecified dementia, unspecified severity, without behavioral disturbance, psychotic disturbance, mood disturbance, and anxiety; Z28.82 Immunization not carried out because of caregiver refusal; Z79.899 Other long term (current) drug therapy; Z79.82 Long term (current) use of aspirin; Z79.84 Long term (current) use of oral hypoglycemic drugs; Z79.02 Long term (current) use of antithrombotics/antiplatelets; Z79.52 Long term (current) use of systemic steroids; Z79.890 Hormone replacement therapy; Z79.01 Long term (current) use of anticoagulants; Z90.710 Acquired absence of both cervix and uterus; Z84.1 Family history of disorders of kidney and ureter
CPT/HCPCS: 36415; 36416; 51701; 70496; 80048; 80053; 80197; 81003; 81015; 82140; 83036; 83605; 84439; 84443; 84481; 84484; 85025; 87040; 87077; 87086; 87186; 93005; 95712; 95819; 95957; 96374; J0692; J0696; J1815; J3490; J7512; J7517; Q9967; U0003; U0005

== ENCOUNTER 2023-09-26 23:10 | Inpatient (IN) | payer MEDICARE ==
[2023-09-26 23:37] LABS: #Monocytes 0.5 thou/uL (0.11-0.59); #Neutrophils 1.6 thou/uL (1.40-6.50); %Eosinophils 0.7 % (0.0-10.0); %Lymphocytes 26.3 % (21.0-51.0); %Monocytes 16.7 % (0.0-10.0); %Neutrophils 56.3 % (42.0-75.0); Hematocrit 33.5 % (36.0-47.0); Hemoglobin 10.8 g/dL (12.0-16.0); Mean Corpuscular HGB CONC 32.2 g/dL (32.0-36.0); Mean Corpuscular Hemoglobin 29.2 pg (27.0-31.0); Mean Corpuscular Volume 90.5 fl (78.0-98.0); Mean Platelet Volume 11.4 fL (7.4-10.4); Platelet Count 103 10x3/uL (130-400); RBC Distribution Width 12.7 % (11.5-14.5); White Blood Cell (WBC) Count 2.8 10x3/uL (4.8-10.8)
[2023-09-26] MEDS ORDERED: Cefepime 2 GM VIAL ONE (23:41)
[2023-09-26] MEDS ORDERED: Vancomycin 1 GM/200 ML (FROZEN) BAG ONE (23:41)
[2023-09-27 00:03] LABS: ALT (SGPT) Less than 7 U/L (8-55); AST (SGOT) 9 U/L (5-34); Albumin 3.1 g/dL (3.4-4.8); Alkaline Phosphatase 45 U/L (40-110); Anion Gap 12 mmol/L (10-20); BUN (Urea Nitrogen) 17 mg/dL (9.8-20.1); Bilirubin, Total 0.8 mg/dL (0.2-1.2); CK (CPK) 36 U/L (29-168); Calc. Creatinine Clearance 0 mL/min (70-130); Calcium 8.4 mg/dL (7.8-10.44); Carbon Dioxide 19 mmol/L (23-31); Chloride 109 mmol/L (98-107); Estimated GFR 81; Globulin 2.6 g/dL (2.4-3.5); Glucose 166 mg/dL (83-110); Lipase 13 U/L (8-78); Potassium 3.7 mmol/L (3.5-5.1); Protein, Total 5.7 g/dL (5.8-8.1); Sodium 136 mmol/L (136-145)
[2023-09-27 00:07] LABS: Troponin I Less than 0.010 ng/mL (< 0.028)
[2023-09-27 01:03] LABS: Bacteria/HPF 3+ HPF (None Seen); Bilirubin Negative (Negative); Blood, Urine 2+ (Negative); CAUTI Indications for Culture Alt mental st,lethar; Clarity Clear (Clear); Glucose, Urine (Dipstick) 100 mg/dL (Negative); Ketone, Urine 10 mg/dL (Negative); Leukocyte 75 Leu/uL (Negative); Nitrite Negative (Negative); Protein, Urine (Dipstick) 30 mg/dL (Neg-Trace); Specific Gravity, Urine 1.016 (1.002-1.036); Squamous Epithelial None Seen HPF (0-3); Urobilinogen Normal mg/dL (Less than 2)
[2023-09-27 01:04] LABS: Urine Culture Reflex No No
[2023-09-27 01:08] LABS: SARS-CoV-2 NAA Rapid Test Not Detected (NotDetected)
[2023-09-27] MEDS ORDERED: Ondansetron PF 4 MG/2 ML Vial IVP PRN (01:53)
[2023-09-27] MEDS ORDERED: Acetaminophen 325 MG TAB PO PRN (01:53)
[2023-09-27] MEDS ORDERED: Dextrose 5% in Water 1,000 ML IV PRN (02:12)
[2023-09-27] MEDS ORDERED: HumaLOG 300 UNITS/3 ML VIAL SC PRN (02:12)
[2023-09-27] MEDS ORDERED: Glucagon 1 MG/ML KIT IM PRN (02:12)
[2023-09-27] MEDS ORDERED: Dextrose 50% Abboject 50 ML SYRINGE SLOW IVP PRN (02:12)
[2023-09-27 02:29] LABS: Amphetamine Not Detected (NotDetected); Barbiturates Screen Not Detected (NotDetected); Benzodiazepine Screen Not Detected (NotDetected); Cocaine Metabolite Screen Not Detected (NotDetected); Methadone Not Detected (NotDetected); Methamphetamine Not Detected (NotDetected); Opiate Screen Not Detected (NotDetected); Oxycodone Screen Not Detected (NotDetected); Phencyclidine (PCP) Not Detected (NotDetected); THC/Cannabinoid Screen Not Detected (NotDetected); Tricyclic Screen Not Detected (NotDetected)
[2023-09-27 04:08] VITALS: BMI 17.6
[2023-09-27 06:31] LABS: Hematocrit 32.7 % (36.0-47.0); Hemoglobin 10.5 g/dL (12.0-16.0); Manual Diff?? YES; Mean Corpuscular HGB CONC 32.1 g/dL (32.0-36.0); Mean Corpuscular Hemoglobin 29.6 pg (27.0-31.0); Mean Corpuscular Volume 92.1 fl (78.0-98.0); Mean Platelet Volume 11.4 fL (7.4-10.4); Platelet Count 92 10x3/uL (130-400); RBC Distribution Width 12.7 % (11.5-14.5); Red Blood Cell (RBC) Count 3.55 mill/uL (4.20-5.40); White Blood Cell (WBC) Count 2.9 10x3/uL (4.8-10.8)
[2023-09-27 06:33] LABS: Actual Bicarbonate (HCO3v) 24.1 mEq/L (22-28); Base Excess 0.2 mEq/L (-2.0 to +3.0); Calcium, Ionized (venous) 1.23 mmol/L (1.16-1.32); Chloride (VBG) 103 mmol/L (98-106); Delete Auto Diff?? YES; Hematocrit-VBG 34 % (36.0-47.0); Hemoglobin (Hb) 11.6 g/dL (11.7-16.1); Potassium (VBG) 3.97 mmol/L (3.70-5.30); Sodium 136 mmol/L (133-146); pH (venous) 7.437 (7.32-7.43)
[2023-09-27 06:52] LABS: Anion Gap 13 mmol/L (10-20); BUN (Urea Nitrogen) 15 mg/dL (9.8-20.1); Calc. Creatinine Clearance 40 mL/min (70-130); Calcium 9.7 mg/dL (7.8-10.44); Carbon Dioxide 21 mmol/L (23-31); Chloride 105 mmol/L (98-107); Estimated GFR 76; Glucose 148 mg/dL (83-110); Potassium 3.9 mmol/L (3.5-5.1); Sodium 135 mmol/L (136-145)
[2023-09-27 07:17] LABS: CellaVision Operator ID LAB.NR; Eosinophils 3 % (0-10); Large Platelets 1.9 % (0-5); Lymphocytes 18 % (21-51); Macrocytosis SLIGHT = 6-15 cells HPF (0-5); Monocytes 13 % (0-10); Neutrophil 66 % (42-75); Platelet Adequacy Comment Platelets Decreased; Polychromasia SLIGHT = 2-3 cells HPF (0-2); Smudge Cells 11.5 %; Total Cell Count 104
[2023-09-27 08:44] LABS: Actual Bicarbonate (HCO3v) 22.8 mEq/L (22-28); Base Excess -0.6 mEq/L (-2.0 to +3.0); Calcium, Ionized (venous) 1.14 mmol/L (1.16-1.32); Chloride (VBG) 102 mmol/L (98-106); Hematocrit-VBG 34 % (36.0-47.0); Hemoglobin (Hb) 11.7 g/dL (11.7-16.1); Potassium (VBG) 3.97 mmol/L (3.70-5.30); Sodium 135 mmol/L (133-146); pH (venous) 7.451 (7.32-7.43)
[2023-09-27] MEDS: Apixaban 2.5 MG TAB PO SCH ×2 (09:59→21:38)
[2023-09-27] MEDS: Cefepime 1 GM in Sodium Chloride 0.9% 100 ML IVPB SCH (13:03)
[2023-09-27] MEDS ORDERED: Mirtazapine 30 MG TAB PO SCH (21:00)
[2023-09-27] MEDS ORDERED: Mycophenolate 250 MG CAP PO SCH (21:00)
[2023-09-27] MEDS ORDERED: Tacrolimus 1 MG CAP PO SCH (21:00)
[2023-09-27] MEDS: Tacrolimus 1 MG CAP PO SCH (21:38)
[2023-09-27] MEDS: Metoprolol Tartrate 50 MG TAB PO SCH (21:39)
[2023-09-27] MEDS: Mycophenolate 250 MG CAP PO SCH (21:39)
[2023-09-28] MEDS: Cefepime 1 GM in Sodium Chloride 0.9% 100 ML IVPB SCH ×2 (00:56→12:46)
[2023-09-28] MEDS ORDERED: Vancomycin HCl 750 MG in Sodium Chloride 0.9% 250 ML 250 ML IVPB SCH (01:00)
[2023-09-28] MEDS ORDERED: Vancomycin HCl 750 MG VIAL ONE (01:30)
[2023-09-28] MEDS: Levothyroxine Sodium 100 MCG TAB PO SCH (06:45)
[2023-09-28] MEDS: Metoprolol Tartrate 50 MG TAB PO SCH ×2 (08:28→22:15)
[2023-09-28] MEDS: Cholecalciferol 1,000 UNITS (25 MCG) TAB PO SCH (08:28)
[2023-09-28] MEDS: Magnesium Oxide 400 MG TAB PO SCH (08:28)
[2023-09-28] MEDS: Aspirin Chewable 81 MG TAB PO SCH (08:28)
[2023-09-28] MEDS: Apixaban 2.5 MG TAB PO SCH ×2 (08:28→22:15)
[2023-09-28] MEDS: Tacrolimus 1 MG CAP PO SCH ×2 (08:29→22:15)
[2023-09-28] MEDS: predniSONE 5 MG TAB PO SCH (08:29)
[2023-09-28] MEDS: Mycophenolate 250 MG CAP PO SCH ×2 (08:29→22:14)
[2023-09-28 08:46] LABS: #Monocytes 0.5 thou/uL (0.11-0.59); #Neutrophils 1.9 thou/uL (1.40-6.50); %Eosinophils 1.2 % (0.0-10.0); %Lymphocytes 27.5 % (21.0-51.0); %Monocytes 14.7 % (0.0-10.0); %Neutrophils 56.6 % (42.0-75.0); Hematocrit 32.1 % (36.0-47.0); Hemoglobin 10.4 g/dL (12.0-16.0); Mean Corpuscular HGB CONC 32.4 g/dL (32.0-36.0); Mean Corpuscular Hemoglobin 29.5 pg (27.0-31.0); Mean Corpuscular Volume 90.9 fl (78.0-98.0); Mean Platelet Volume 11.8 fL (7.4-10.4); RBC Distribution Width 12.6 % (11.5-14.5); Red Blood Cell (RBC) Count 3.53 mill/uL (4.20-5.40); White Blood Cell (WBC) Count 3.3 10x3/uL (4.8-10.8)
[2023-09-28 08:53] LABS: Platelet Count 90 10x3/uL (130-400)
[2023-09-28] MEDS ORDERED: Cholecalciferol 10 MCG/ML (Vitamin D3) 50 ML BOT PO SCH (09:00)
[2023-09-28] MEDS ORDERED: Levothyroxine Sodium 75 MCG TAB PO SCH (09:00)
[2023-09-28] MEDS ORDERED: Non-Formulary Item 1 EACH (Magnesium Oxide [Magnesium Oxide] 400 MG Tablet) PO SCH (09:00)
[2023-09-28 09:07] LABS: Anion Gap 13 mmol/L (10-20); BUN (Urea Nitrogen) 11 mg/dL (9.8-20.1); Calc. Creatinine Clearance 44 mL/min (70-130); Calcium 9.3 mg/dL (7.8-10.44); Carbon Dioxide 21 mmol/L (23-31); Chloride 102 mmol/L (98-107); Estimated GFR 85; Glucose 137 mg/dL (83-110); Sodium 132 mmol/L (136-145)
[2023-09-28] MEDS: HumaLOG 300 UNITS/3 ML VIAL SC PRN (12:46)
[2023-09-29] MEDS: Cefepime 1 GM in Sodium Chloride 0.9% 100 ML IVPB SCH ×2 (01:23→12:46)
[2023-09-29] MEDS: Levothyroxine Sodium 100 MCG TAB PO SCH (06:06)
[2023-09-29 07:37] LABS: #Monocytes 0.5 thou/uL (0.11-0.59); #Neutrophils 2.9 thou/uL (1.40-6.50); %Basophils 0.2 % (0.0-1.0); %Eosinophils 0.5 % (0.0-10.0); %Lymphocytes 18.2 % (21.0-51.0); %Monocytes 10.9 % (0.0-10.0); Hematocrit 32.8 % (36.0-47.0); Hemoglobin 10.8 g/dL (12.0-16.0); Mean Corpuscular HGB CONC 32.9 g/dL (32.0-36.0); Mean Corpuscular Hemoglobin 29.3 pg (27.0-31.0); Mean Corpuscular Volume 89.1 fl (78.0-98.0); Mean Platelet Volume 11.4 fL (7.4-10.4); Platelet Count 92 10x3/uL (130-400); RBC Distribution Width 12.4 % (11.5-14.5); Red Blood Cell (RBC) Count 3.68 mill/uL (4.20-5.40); White Blood Cell (WBC) Count 4.1 10x3/uL (4.8-10.8)
[2023-09-29 07:56] LABS: Anion Gap 12 mmol/L (10-20); BUN (Urea Nitrogen) 12 mg/dL (9.8-20.1); Calc. Creatinine Clearance 46 mL/min (70-130); Calcium 9.8 mg/dL (7.8-10.44); Carbon Dioxide 22 mmol/L (23-31); Chloride 101 mmol/L (98-107); Estimated GFR 89; Glucose 176 mg/dL (83-110); Potassium 3.9 mmol/L (3.5-5.1); Sodium 131 mmol/L (136-145)
[2023-09-29] MEDS: Metoprolol Tartrate 50 MG TAB PO SCH ×2 (09:26→20:54)
[2023-09-29] MEDS: Mycophenolate 250 MG CAP PO SCH ×2 (09:26→20:54)
[2023-09-29] MEDS: Apixaban 2.5 MG TAB PO SCH ×2 (09:26→20:54)
[2023-09-29] MEDS: Aspirin Chewable 81 MG TAB PO SCH (09:26)
[2023-09-29] MEDS: predniSONE 5 MG TAB PO SCH (09:26)
[2023-09-29] MEDS: Cholecalciferol 1,000 UNITS (25 MCG) TAB PO SCH (09:26)
[2023-09-29] MEDS: Magnesium Oxide 400 MG TAB PO SCH (09:26)
[2023-09-29] MEDS: Tacrolimus 1 MG CAP PO SCH ×2 (09:26→20:54)
[2023-09-29] MEDS: HumaLOG 300 UNITS/3 ML VIAL SC PRN ×2 (12:46→17:48)
[2023-09-30] MEDS: Cefepime 1 GM in Sodium Chloride 0.9% 100 ML IVPB SCH ×2 (01:07→12:25)
[2023-09-30] MEDS: HumaLOG 300 UNITS/3 ML VIAL SC PRN ×3 (06:33→17:45)
[2023-09-30] MEDS: Levothyroxine Sodium 100 MCG TAB PO SCH (06:34)
[2023-09-30] MEDS: Mycophenolate 250 MG CAP PO SCH ×2 (08:29→21:25)
[2023-09-30] MEDS: Aspirin Chewable 81 MG TAB PO SCH (08:29)
[2023-09-30] MEDS: Cholecalciferol 1,000 UNITS (25 MCG) TAB PO SCH (08:29)
[2023-09-30] MEDS: Tacrolimus 1 MG CAP PO SCH ×2 (08:29→21:25)
[2023-09-30] MEDS: Metoprolol Tartrate 50 MG TAB PO SCH ×2 (08:29→21:25)
[2023-09-30] MEDS: predniSONE 5 MG TAB PO SCH (08:29)
[2023-09-30] MEDS: Magnesium Oxide 400 MG TAB PO SCH (08:30)
[2023-09-30] MEDS: Apixaban 2.5 MG TAB PO SCH ×2 (08:30→21:25)
[2023-09-30 08:36] LABS: #Monocytes 0.4 thou/uL (0.11-0.59); #Neutrophils 2.8 thou/uL (1.40-6.50); %Eosinophils 0.9 % (0.0-10.0); %Lymphocytes 23.1 % (21.0-51.0); %Monocytes 10.1 % (0.0-10.0); %Neutrophils 65.7 % (42.0-75.0); Hematocrit 33.7 % (36.0-47.0); Mean Corpuscular HGB CONC 32.6 g/dL (32.0-36.0); Mean Corpuscular Hemoglobin 28.9 pg (27.0-31.0); Mean Corpuscular Volume 88.7 fl (78.0-98.0); Mean Platelet Volume 11.1 fL (7.4-10.4); Platelet Count 119 10x3/uL (130-400); RBC Distribution Width 12.3 % (11.5-14.5); White Blood Cell (WBC) Count 4.3 10x3/uL (4.8-10.8)
[2023-09-30 08:52] LABS: Anion Gap 12 mmol/L (10-20); BUN (Urea Nitrogen) 12 mg/dL (9.8-20.1); Calc. Creatinine Clearance 49 mL/min (70-130); Calcium 10.1 mg/dL (7.8-10.44); Carbon Dioxide 24 mmol/L (23-31); Chloride 100 mmol/L (98-107); Estimated GFR 93; Glucose 168 mg/dL (83-110); Potassium 3.8 mmol/L (3.5-5.1); Sodium 132 mmol/L (136-145)
[2023-10-01] MEDS: Cefepime 1 GM in Sodium Chloride 0.9% 100 ML IVPB SCH ×2 (00:05→11:41)
[2023-10-01 04:37] LABS: Tacrolimus 19.2 ng/mL (2.0-20.0)
[2023-10-01] MEDS: Levothyroxine Sodium 100 MCG TAB PO SCH (06:09)
[2023-10-01] MEDS: Magnesium Oxide 400 MG TAB PO SCH (08:13)
[2023-10-01] MEDS: Tacrolimus 1 MG CAP PO SCH (08:13)
[2023-10-01] MEDS: Metoprolol Tartrate 50 MG TAB PO SCH (08:13)
[2023-10-01] MEDS: Mycophenolate 250 MG CAP PO SCH (08:13)
[2023-10-01] MEDS: Cholecalciferol 1,000 UNITS (25 MCG) TAB PO SCH (08:13)
[2023-10-01] MEDS: predniSONE 5 MG TAB PO SCH (08:13)
[2023-10-01] MEDS: Aspirin Chewable 81 MG TAB PO SCH (08:14)
[2023-10-01] MEDS: Apixaban 2.5 MG TAB PO SCH (08:14)
[2023-10-01] MEDS: HumaLOG 300 UNITS/3 ML VIAL SC PRN (12:44)
[2023-10-01 16:02] VITALS: BP 126/71; TEMP 97.3
== END 2023-10-01 16:25 | disposition home or self-care (01) | DRG 689 ==
LOC: ERS 23:10 → 2SE 09-27 01:55 → T4-A 09-27 17:42
PROVIDERS: ADMIT Internal Medicine; ATTEND Family Medicine
PROC: 4A133R1 Monitoring of Arterial Saturation, Peripheral, Percutaneous Approach (ICD-10-PCS; principal; 2023-09-27)
DX: N39.0 Urinary tract infection, site not specified (principal); G93.41 Metabolic encephalopathy; Q61.3 Polycystic kidney, unspecified; Z94.0 Kidney transplant status; I48.91 Unspecified atrial fibrillation; Z66 Do not resuscitate; E11.9 Type 2 diabetes mellitus without complications; E03.9 Hypothyroidism, unspecified; D64.9 Anemia, unspecified; G47.33 Obstructive sleep apnea (adult) (pediatric); D69.6 Thrombocytopenia, unspecified; F03.90 Unspecified dementia, unspecified severity, without behavioral disturbance, psychotic disturbance, mood disturbance, and anxiety; I48.0 Paroxysmal atrial fibrillation; B96.5 Pseudomonas (aeruginosa) (mallei) (pseudomallei) as the cause of diseases classified elsewhere; Z79.899 Other long term (current) drug therapy; Z79.890 Hormone replacement therapy; Z90.710 Acquired absence of both cervix and uterus
CPT/HCPCS: 36415; 36416; 51701; 70450; 71045; 80048; 80053; 80197; 80306; 81001; 82550; 82805; 83605; 83690; 84443; 84484; 85025; 87040; 87077; 87081; 87086; 87149; 93005; 96365; 96367; J0692; J1815; J3370; J3370-JW; J3490; J7050; J7507; J7512; J7517